=== PATIENT | female | born 1960 | race Two or more races ===

== ENCOUNTER → 2020-09-05 08:20 | Outpatient (BNVA) | payer MEDICAID, SELFPAY | PROVIDERS: Visit Provider Psychiatry & Neurology Neurology | DX: Z13.89 Encounter for screening for other disorder (principal) ==

== ENCOUNTER 2020-11-09 15:02 | Outpatient (REF) | payer MEDICAID, SELFPAY ==
--- NOTE | ~2020-11-09 | CT_ITS ---
EXAMINATION: CT HEAD WITHOUT CONTRAST CLINICAL INFORMATION: Cerebral microvascular disease. COMPARISON: None TECHNIQUE: Contiguous axial imaging was performed from the skull base to vertex without intravenous administration of contrast. This CT examination was performed using dose optimization techniques as appropriate, variously including the following: Automated exposure control. Adjustment of mA and/or kV according to patient size (this includes techniques or standardized protocols for targeted exams where dose is matched to indication/reason for exam; i.e. extremities or head). Use of iterative reconstruction technique. DLP: 687 mGy-cm FINDINGS: There is no evidence of acute intracranial hemorrhage or territorial infarction. No abnormal mass effect or midline shift is seen. Johnson to white matter differentiation is well preserved. No extra-axial fluid collections are identified. The ventricles are normal in size. There is no abnormal attenuation within the brain parenchyma. The osseous structures and soft tissues are normal. The mastoid air cells and visualized portions of the paranasal sinuses are well aerated. CT/CT head/brain wo con IMPRESSION: No acute intracranial process seen.
== END 2020-11-09 15:03 | disposition home or self-care (01) ==
LOC: HO.CT 15:02
PROVIDERS: Visit Provider Psychiatry & Neurology Neurology
DX: G31.84 Mild cognitive impairment of uncertain or unknown etiology (principal); I67.9 Cerebrovascular disease, unspecified
CPT/HCPCS: 70450

== ENCOUNTER 2020-11-11 09:36 | Outpatient (REF) | payer MEDICAID, SELFPAY ==
[2020-11-11 10:46] LABS: Basophils Percent Auto 0.4 % (0-2); Eosinophils Absolute Auto 0.3 X10*3/uL (0.0-0.4); Eosinophils Percent Auto 3.1 % (0-4); MANUAL DIFF FLAG SCAN; Mean Corpuscular Volume 95.1 fL (80-98)
[2020-11-11 10:48] LABS: Hematocrit 44.4 % (37-47); Hemoglobin 13.8 g/dl (12.0-16.0); Imm Gran Abs Auto 0.01 X10*3/uL (0.00-0.03); Imm Gran Pct Auto 0.1 % (0.0-0.4); Lymphocytes Absolute Auto 2.1 X10*3/uL (1.2-4.9); Lymphocytes Percent Auto 24.9 % (20-40); Mean Corpuscular HGB Conc 31.1 g/dl (31.0-35.0); Mean Corpuscular Hemoglobin 29.6 pg (27.0-33.0); Mean Platelet Volume 13.8 fL (9.4-12.3); Monocytes Absolute Auto 0.7 X10*3/uL (0.1-1.2); Neutrophils Absolute Auto 5.4 X10*3/uL (2.0-8.3); Neutrophils Percent Auto 63.5 % (45-73); Platelet Count 136 X10*3/uL (160-400); Red Blood Count 4.67 X10*6/uL (4.20-5.50); Red Cell Distribution Width 13.8 % (11.0-16.0); White Blood Count 8.5 X10*3/uL (4.8-10.8)
[2020-11-11 10:49] LABS: PLT ABN DIST 1
[2020-11-11 10:53] LABS: Glucose Urine UA NEG (NEG); Leukocyte Esterase Urine NEG (NEG); Nitrite Urine NEG (NEG); PH 5.5 (5.0-8.0); Specific Gravity - Urine >= 1.030 (1.005-1.025); Urine Blood NEG (NEG); Urine Ketones NEG (NEG); Urine Protein NEG (NEG-TRACE)
[2020-11-11 10:55] LABS: Appearance Urine CLEAR; Color Urine YELLOW
[2020-11-11 11:10] LABS: Alanine Aminotransferase 23 U/L (0-31); Albumin Level 4.2 g/dL (3.5-5.0); Alkaline Phosphatase 72 U/L (39-117); Anion Gap 11 (12-20); Aspartate Amino Transferase 28 U/L (5-31); Bilirubin Total 0.7 mg/dL (0.0-1.0); Blood Urea Nitrogen 23 mg/dL (9-16); Calcium 9.8 mg/dL (8.4-10.2); Carbon Dioxide 34 mmol/L (22-29); Chloride 100 mmol/L (96-108); Estimated Glomerular Filt Rate > 60; Glucose Random 100 mg/dL (60-115); Potassium 3.8 mmol/L (3.3-5.1); Sodium 141 mmol/L (135-145); Total Protein 7.7 g/dL (6.5-8.0)
[2020-11-11 11:26] LABS: Bacteria Urine TRACE /LPF; Mucus Urine 1+ /LPF; RBC Urine 0-2 /HPF (0); Squamous Epithelial Cell Urine 1+ /LPF; WBC Urine 0-2 /HPF (0-4)
[2020-11-11 11:31] LABS: Thyroid Stimulating Hormone 1.59 uIU/mL (0.32-4.0)
[2020-11-11 12:58] LABS: T4 Thyroxine 6.4 ug/dL (4.5-12.0)
[2020-11-13 08:35] LABS: Folate 10.8 ng/mL (> or = 4.0); Vitamin B12 477 pg/mL (200-900)
== END 2020-11-11 09:37 | disposition home or self-care (01) ==
LOC: HO.LAB 09:36
PROVIDERS: Visit Provider Psychiatry & Neurology Neurology
DX: R42 Dizziness and giddiness (principal); G31.84 Mild cognitive impairment of uncertain or unknown etiology
CPT/HCPCS: 36415; 80053; 81001; 82607; 82746; 84436; 84443; 85025

== ENCOUNTER → 2020-12-12 08:40 | Outpatient (BNVA) | payer MEDICAID, SELFPAY | PROVIDERS: PCP Registered Nurse Community Health; Visit Provider Psychiatry & Neurology Neurology ==

== ENCOUNTER 2021-04-26 09:00 | Outpatient (RCR) | payer MEDICAID, SELFPAY | END 2021-05-11 12:31 | disposition home or self-care (01) | LOC: HO.PT 09:00 | PROVIDERS: PCP Registered Nurse Community Health; Visit Provider Registered Nurse Community Health | DX: M47.816 Spondylosis without myelopathy or radiculopathy, lumbar region (principal) | CPT/HCPCS: 97110; 97112; 97162 ==

== ENCOUNTER 2021-05-22 07:49 | Outpatient (REF) | payer MEDICAID, SELFPAY ==
--- NOTE | ~2021-05-22 | XR_ITS ---
EXAMINATION: XR FOOT, RIGHT CLINICAL INFORMATION: Right foot pain. COMPARISON: None TECHNIQUE: AP, lateral, and oblique views of the right foot. FINDINGS: There is no acute fracture or dislocation. The tarsal bones are normally aligned. Small plantar and retrocalcaneal spurs are seen. The soft tissues are unremarkable. XR/XR foot RT min 3V IMPRESSION: Small degenerative calcaneal spurs. No acute abnormality.
--- NOTE | ~2021-05-22 | MM_ITS ---
EXAMINATION: MM SCREENING DIGITAL BREAST TOMOSYNTHESIS, BILATERAL CLINICAL INFORMATION: Screening. Asymptomatic. The lifetime risk of breast cancer based on the Tyrer-Cuzick Model is 5%. COMPARISON: Mammography: 06/14/2020, 03/01/2019, 02/24/2018 TECHNIQUE: Digital breast tomosynthesis is performed in both the craniocaudal and mediolateral oblique views along with computer-aided detection (CAD). Synthesized 2D images are generated from the tomosynthesis. FINDINGS: There are scattered areas of fibroglandular density (ACR BI-RADS breast composition Category b). There are no significant masses, abnormal calcifications, or other abnormalities. There is a stable nodule mid upper outer left breast again, scattered bilateral ductal secretory and some round calcifications and dermal calcifications are again seen. The axilla are unremarkable. No significant changes. MM/MM tomosynthesis screening BI IMPRESSION: No mammographic evidence of malignancy. ASSESSMENT: BI-RADS 2: Benign RECOMMENDATION: Routine annual mammography screening. This patient's information was entered into a reminder system with a target due date for their next mammogram.
== END 2021-05-22 07:50 | disposition home or self-care (01) ==
LOC: HO.MAMMO 07:49
PROVIDERS: Absent Provider Emergency Medicine; PCP Internal Medicine; Visit Provider Internal Medicine
DX: M77.31 Calcaneal spur, right foot (principal); M79.671 Pain in right foot; Z12.31 Encounter for screening mammogram for malignant neoplasm of breast; I10 Essential (primary) hypertension; G47.33 Obstructive sleep apnea (adult) (pediatric)
CPT/HCPCS: 73630; 77063; 77067; 93005; 99202

== ENCOUNTER → 2021-06-12 10:04 | Outpatient (BNVA) | payer MEDICAID, SELFPAY | PROVIDERS: PCP Registered Nurse Community Health; Visit Provider Psychiatry & Neurology Neurology ==

== ENCOUNTER → 2021-07-30 09:59 | Outpatient (REF) | payer MEDICAID, SELFPAY | LOC: HO.SL 09:59 | PROVIDERS: PCP Registered Nurse Community Health; Visit Provider Internal Medicine | DX: G47.33 Obstructive sleep apnea (adult) (pediatric) (principal) | CPT/HCPCS: 95806 ==

== ENCOUNTER → 2021-11-12 19:58 | Outpatient (REF) | payer MEDICAID, SELFPAY | LOC: HO.SL 19:58 | PROVIDERS: PCP Registered Nurse Community Health; Visit Provider Psychiatry & Neurology Neurology | DX: G47.33 Obstructive sleep apnea (adult) (pediatric) (principal) | CPT/HCPCS: 95810 ==

== ENCOUNTER → 2021-11-27 08:15 | Outpatient (BNVA) | payer MEDICAID, SELFPAY | PROVIDERS: PCP Registered Nurse Community Health; Referring Provider Registered Nurse Community Health; Visit Provider Psychiatry & Neurology Neurology | DX: G47.33 Obstructive sleep apnea (adult) (pediatric) (principal); Z99.89 Dependence on other enabling machines and devices | CPT/HCPCS: 99212 ==

== ENCOUNTER 2021-12-23 04:43 | Emergency (ER) | payer MEDICAID, SELFPAY ==
--- NOTE | ~2021-12-23 | CT_ITS ---
EXAMINATION: CT HEAD W/O IV CONTRAST CT CERVICAL SPINE W/O IV CONTRAST CLINICAL INFORMATION: Head strike, headache, neck pain. COMPARISON: Head CT from 11/09/2020. TECHNIQUE: Head - Contiguous axial imaging of the head was performed from the skull base to the vertex without the administration of intravenous contrast, and axial images are reconstructed at 2 mm and 5 mm slice thickness. Cervical spine - A volumetric, helical CT acquisition of the cervical spine was obtained without contrast; in addition to the standard set of axial images, multiplanar reformatted images were provided in the coronal and sagittal imaging planes. This CT examination was performed using dose optimization techniques as appropriate, variously including the following: *Automated exposure control *Adjustment of mA and/or kV according to patient size (this includes techniques or standardized protocols for targeted exams where dose is matched to indication/reason for exam; i.e. extremities or head) *Use of iterative reconstruction technique DLP: 1184 mGy-cm (total) FINDINGS: HEAD: No evidence of intracranial hemorrhage, major vascular territory infarction, focal mass effect or midline shift. Johnson to white matter differentiation is preserved. The ventricles have normal size and configuration. No extra-axial fluid collections. The calvarium is intact and the visualized paranasal sinuses, mastoid air cells and middle ear cavities are clear. The temporomandibular joints are unremarkable. The visualized orbits and globes are intact. CERVICAL SPINE: No acute abnormalities. The craniocervical junction is normal. The occipital condyles, dens and atlantodental articulation are intact. The vertebral body heights and alignment are maintained. No fractures in the anterior or posterior elements. No prevertebral soft tissue swelling. Mild degenerative disc space narrowing, vertebral osteophyte formation and uncovertebral joint hypertrophy at C4-C5 and C5-C6. No spinal hematoma or focal fluid collection in the visualized neck. The examined lung apices are clear. Thyroid gland is normal. CT/CT cervical spine wo con IMPRESSION: * No intracranial hemorrhage or other acute intracranial pathology. * No fracture or malalignment in the mildly degenerated cervical spine.
--- NOTE | ~2021-12-23 | CT_ITS ---
EXAMINATION: CT ABDOMEN AND PELVIS WITHOUT CONTRAST CLINICAL INFORMATION: Right flank pain. COMPARISON: CT scan of the abdomen and pelvis April 2012. TECHNIQUE: Multidetector volumetric imaging was performed from the superior aspect of the liver through the pubic symphysis. Sagittal and coronal reformatted images were obtained on the technologist's workstation. This CT examination was performed using dose optimization techniques as appropriate, variously including the following: *Automated exposure control *Adjustment of mA and/or kV according to patient size (this includes techniques or standardized protocols for targeted exams where dose is matched to indication/reason for exam; i.e. extremities or head) *Use of iterative reconstruction technique DLP: 643 mGy-cm FINDINGS: LUNG BASES: Minimal posterior dependent atelectasis. LIVER, GALLBLADDER, AND BILIARY TREE: The liver is normal in size, shape, and attenuation. No focal hepatic lesion or biliary ductal dilatation is present. Gallbladder absent. PANCREAS: Unremarkable. SPLEEN: Unremarkable. ADRENAL GLANDS: Unremarkable. KIDNEYS AND URETERS: The kidneys are normal in size, shape, and attenuation. No hydronephrosis, hydroureter, or calculi seen. No perinephric stranding. BLADDER: Normal. GASTROINTESTINAL TRACT: Scattered diverticulosis in the distal colon without diverticulitis. Appendix normal. Small bowel normal. Stomach normal. ABDOMINAL WALL: No significant hernia is appreciated. LYMPH NODES: Normal. VASCULAR: Mild arterial calcification throughout. PELVIC VISCERA: Age-related or surgical change as uterus not visualized. OSSEOUS STRUCTURES: Multilevel spondylosis of the lumbar sacral spine, slightly progressed compared with the [address]/CT abdomen pelvis wo con IMPRESSION: No urinary tract calculus. No identified etiology for patient's reported symptoms. Scattered diverticulosis without diverticulitis. Fleischner guidelines were followed.
--- NOTE | ~2021-12-23 | XR_ITS ---
EXAMINATION: XR CHEST CLINICAL INFORMATION: Fall. Pain. COMPARISON: 10/14/2019 TECHNIQUE: Frontal view of the chest was obtained. FINDINGS: Mild dependent atelectasis at the right lung base. Lungs are otherwise clear. No consolidation, pneumothorax, or pleural effusion. Cardiac and mediastinal contours are normal. Calcific atherosclerosis is present in the thoracic aorta. Calcific tendinitis at the left rotator cuff. Degenerative spondylosis in the thoracic spine. No acute fractures are identified. XR/XR chest 1V IMPRESSION: No acute bony findings. No appreciable rib fractures.
[2021-12-23 04:49] VITALS: BP 101/55; BP 144/86; PULSE 67; PULSE 70; RESP 14; TEMP 37.1; O2SAT 94; O2SAT 98; BMI 41.3
--- NOTE | 2021-12-23 06:21 | ECG_ITS ---
Test Reason : HTN/HEADACHE Blood Pressure : / mmHG Vent. Rate : 070 BPM Atrial Rate : 070 BPM P-R Int : 132 ms QRS Dur : 092 ms QT Int : 376 ms P-R-T Axes : 025 -14 -27 degrees QTc Int : 406 ms Normal sinus rhythm T wave abnormality, consider anterior ischemia Abnormal ECG When compared with ECG of 14-OCT-2019 21:02, Inverted T waves have replaced nonspecific T wave abnormality in Anterior leads Referred By: Generic ED Physician Electronically Signed By:Cole Aguiar
[2021-12-23 06:55] LABS: MANUAL DIFF FLAG NO
--- NOTE | 2021-12-23 06:55 | ED_ITS ---
HPI - Altered Mental Status General Chief Complaint: Altered Mental Status Stated Complaint: fall Time Seen by Provider: 12/23/21 06:32 Source: patient and family Mode of arrival: EMS Limitations: no limitations History of Present Illness MD complaint: weakness and other (had such severe R flank pain (pain x 3 months) that she syncopized and fell in bathroom) Onset (ago): minute(s) (just prior to arrival ) Timing confirmed by: family member (daughter found her on ground BP was 90) Severity: severe Consistency of symptoms: waxing and waning Context: other (has been c/o R flank pain for 3 months just saw PCP this week they put her on macrobid for UTI a couple of days ago flank pain worsened in the night) Associated symptoms: loss of appetite, malaise, nausea/vomiting, syncope (due to severe pain today in R flank knew she was going to pass out) and weakness Related Data Home Medications Medication Instructions Recorded Confirmed chlorthalidone 50 mg tablet 50 mg PO DAILY 05/22/21 05/22/21 cholecalciferol (vitamin D3) 25 25 mcg PO DAILY 05/22/21 05/22/21 mcg (1,000 unit) chewable tablet clonazepam 1 mg tablet 1 mg PO DAILY 05/22/21 05/22/21 conjugated estrogens 0.625 mg 0.625 mg PO DAILY 05/22/21 05/22/21 tablet (Premarin) gabapentin 100 mg capsule 400 mg PO BID cap 05/22/21 05/22/21 metoprolol succinate 25 mg 25 mg PO DAILY 05/22/21 05/22/21 tablet,extended release 24 hr quetiapine 200 mg tablet 200 mg PO DAILY 05/22/21 05/22/21 rosuvastatin 10 mg tablet 10 mg PO DAILY 05/22/21 05/22/21 sertraline 100 mg tablet 100 mg PO DAILY 05/22/21 05/22/21 zolpidem 10 mg tablet 10 mg PO BEDTIME PRN 05/22/21 05/22/21 Previous Rx's Medication Instructions Recorded cyclobenzaprine 10 mg tablet 10 mg PO TID PRN #14 tab 12/23/21 lidocaine 4 % topical patch 1 patch TOPICAL DAILY PRN #10 ea 12/23/21 Allergies Allergy/AdvReac Type Severity Reaction Status Date / Time No Known Allergies Allergy Verified 11/27/21 08:40 Review of Systems Review of Systems: Constitutional : No Weight loss, No Fever, No Chills, pos Fatigue, No Malaise ENT/Mouth : No sore throat, No Rhinorrhea Eyes: No Eye Pain, No Swelling, No Redness Cardiovascular : No Chest Pain, No SOB, No Dyspnea on Exertion, No Orthopnea, No Edema, No Palpitations Respiratory : No Cough, No Sputum, No Wheezing Gastrointestinal : pos Nausea, No Vomiting, No Diarrhea, No Constipation, No abdominal Pain, No Hematochezia, No Melena Genitourinary : No Dysuria, No Urinary Frequency, No Hematuria, Musculoskeletal : No joint pain, No Myalgias, No Joint Swelling, pos R flank pain Skin : No Skin Lesions, No rash Neuro : pos Weakness, No Numbness, No Dizziness, No Headache, pos syncope Psych : No Anxiety/Panic, No Depression Heme/Lymph: No Bruising, No Bleeding,No Lymphadenopathy Endocrine : No Polyuria, No Polydipsia All other systems reviewed and are negative FORMERLY [facility], 1928–1983 Past Medical History Attestation statement: The following information was validated with the patient. Medical History Anxiety Carpal tunnel syndrome Cholecystectomy planned Depression Diabetes Essential hypertension History of mitral valve prolapse Hypertension Mild cognitive disorder PTSD (post-traumatic stress disorder) Sciatica Spondylosis Surgical History H/O: hysterectomy Family History Family History Father Cardiomyopathy Mother Bone cancer Brother Atherosclerotic heart disease Social History Social History (Updated 12/23/21 @ 07:02 by Kadie Allen DO) Patient Tobacco Use Status: Never used Tobacco Advance Directives: No Patient : No Physical Exam ED Vital Signs: Vital Signs - 24 hr 12/23/21 04:49 12/23/21 07:33 Temperature 98.7 F Pulse Rate 67 66 Respiratory Rate 14 15 Blood Pressure 101/55 L 107/67 Pulse Oximetry 94 94 BMI result Body Mass Index 41.3 Appearance: Alert. Oriented X3. No acute distress. Eyes: Pupils equal, round and reactive to light. ENT: Pharynx normal. Neck: Normal inspection. Neck supple. CVS: Normal heart rate and rhythm. Pulses normal. Respiratory: No respiratory distress. Breath sounds normal. Abdomen: Soft and non-tender. Skin: Skin warm and dry. Normal skin color. Normal skin turgor. Extremities: No lower extremity edema. No calf ttp Neuro: Oriented X 3. No motor deficit. No sensory deficit. Course Course Course Narrative: patient stable for DC at this time - negative workup, UA negative can continue macrobid MDM - Altered Mental Status MDM Narrative Medical decision making narrative: 61 yo female with hx of HTN, SILVANO who has been having R flank pain x 3 months just put on macrobid by her PCP a few days ago was on the toilet this AM when the pain became so severe she passed out. She was found by her family and her daugther recorded a BP of 90. At this time no sig trauma noted she is GCS 15. Will obtain labs, (imaging of head/neck ordered prior to my evaluation) she will need EKG and troponin x 2. I do not suspect PE given this pain x 3 months but she should have CT scan of R flank for mass / stone. IVF ordered. Dispo per results and findings. Lab Data Result diagrams: 12/23/21 06:27 12/23/21 06:27 Labs: Lab Results 12/23/21 12/23/21 12/23/21 Range/Units 06:27 06:27 06:27 WBC 8.8 (4.8-10.8) X10*3/uL RBC 4.65 (4.20-5.50) X10*6/uL Hgb 13.9 (12.0-16.0) g/dl Hct 43.1 (37.0-47.0) % MCV 92.7 (80.0-98.0) fL MCH 29.9 (27.0-33.0) pg MCHC 32.3 (31.0-35.0) g/dl RDW 13.8 (11.0-16.0) % Plt Count 163 (160-400) X10*3/uL MPV 12.8 H (9.4-12.3) fL Immature Gran % (Auto) 0.3 (0.0-0.4) % Neut % (Auto) 86.1 H (45-73) % Lymph % (Auto) 6.7 L (20-40) % [place] % (Auto) 6.2 (2-11) % Eos % (Auto) 0.6 (0-4) % Baso % (Auto) 0.1 (0-2) % Lymph # (Auto) 0.6 L (1.2-4.9) X10*3/uL [place] # (Auto) 0.5 (0.1-1.2) X10*3/uL Eos # (Auto) 0.1 (0.0-0.4) X10*3/uL Baso # (Auto) 0.0 (0.0-0.2) X10*3/uL Abs Immat Gran (auto) 0.03 (0.00-0.03) X10*3/uL Absolute Neuts (auto) 7.5 (2.0-8.3) x10*3/uL Absolute Nucleated RBC 0.000 (0.0-0.012) X10*3/uL Nucleated RBC % (auto) 0.0 (0.0-0.2) /100WBC Sodium 138 (135-145) mmol/L Potassium 3.7 (3.3-5.1) mmol/L Chloride 100 (96-108) mmol/L Carbon Dioxide 28 (22-29) mmol/L Anion Gap 14 (12-20) BUN 21 H (9-16) mg/dL Creatinine 0.73 (0.5-1.4) mg/dL Estim Creat Clear Calc 60.8 Estimated GFR > 60 Random Glucose 123 H (60-115) mg/dL Lactic Acid (0.5-2.0) mmol/L Calcium 9.4 (8.4-10.2) mg/dL Total Creatine Kinase 206 H (26-140) U/L Troponin I High Sens < 3.5 (<3.5-17.0) ng/L Urine Color Urine Appearance Urine pH (5.0-8.0) Ur Specific [place] (1.005-1.025) Urine Protein (NEG-TRACE) MG/DL Urine Glucose (UA) (NEG) MG/DL Urine Ketones (NEG) MG/DL Urine Blood (NEG) Urine Nitrite (NEG) Ur Leukocyte Esterase (NEG) 12/23/21 12/23/21 12/23/21 Range/Units 06:43 09:00 09:12 WBC (4.8-10.8) X10*3/uL RBC (4.20-5.50) X10*6/uL Hgb (12.0-16.0) g/dl Hct (37.0-47.0) % MCV (80.0-98.0) fL MCH (27.0-33.0) pg MCHC (31.0-35.0) g/dl RDW (11.0-16.0) % Plt Count (160-400) X10*3/uL MPV (9.4-12.3) fL Immature Gran % (Auto) (0.0-0.4) % Neut % (Auto) (45-73) % Lymph % (Auto) (20-40) % [place] % (Auto) (2-11) % Eos % (Auto) (0-4) % Baso % (Auto) (0-2) % Lymph # (Auto) (1.2-4.9) X10*3/uL [place] # (Auto) (0.1-1.2) X10*3/uL Eos # (Auto) (0.0-0.4) X10*3/uL Baso # (Auto) (0.0-0.2) X10*3/uL Abs Immat Gran (auto) (0.00-0.03) X10*3/uL Absolute Neuts (auto) (2.0-8.3) x10*3/uL Absolute Nucleated RBC (0.0-0.012) X10*3/uL Nucleated RBC % (auto) (0.0-0.2) /100WBC Sodium (135-145) mmol/L Potassium (3.3-5.1) mmol/L Chloride (96-108) mmol/L Carbon Dioxide (22-29) mmol/L Anion Gap (12-20) BUN (9-16) mg/dL Creatinine (0.5-1.4) mg/dL Estim Creat Clear Calc Estimated GFR Random Glucose (60-115) mg/dL Lactic Acid 1.5 (0.5-2.0) mmol/L Calcium (8.4-10.2) mg/dL Total Creatine Kinase (26-140) U/L Troponin I High Sens < 3.5 (<3.5-17.0) ng/L Urine Color YELLOW Urine Appearance CLEAR Urine pH 7.0 (5.0-8.0) Ur Specific [place] 1.010 (1.005-1.025) Urine Protein NEG (NEG-TRACE) MG/DL Urine Glucose (UA) NEG (NEG) MG/DL Urine Ketones NEG (NEG) MG/DL Urine Blood NEG (NEG) Urine Nitrite NEG (NEG) Ur Leukocyte Esterase NEG (NEG) ECG Data ECG #1: Attestation: I personally reviewed and interpreted this ECG as follows: ECG interpretation date: 12/23/21 ECG interpretation time: 06:56 Interpretation: Rate: 70 Rhythm: NSR [place]: birnak Normal P waves. Normal FLAVIA. Normal QRS complex. ST T wave : inverted V3-V6 qTC: normal prior studies: no acute ischemia from prior hx of inversions in past The study has been interpreted contemporaneously by me. Discharge Plan Discharge Clinical Impression: Vasovagal syncope, Acute flank pain Patient Disposition: Home, Self-Care Instructions: Syncope (ED), Flank Pain (ED) Additional Instructions: return to ED for any worsening symptoms or concerns CT scan negative of R flank CT/CT abdomen pelvis wo con IMPRESSION: No urinary tract calculus. ? No identified etiology for patient's reported symptoms. ? Scattered diverticulosis without diverticulitis.? ? Fleischner guidelines were followed. CONTINUE ANTIBIOTICS Prescriptions: New cyclobenzaprine 10 mg tablet 10 mg PO TID PRN (Reason: muscle spasm) Qty: 14 0RF lidocaine 4 % adhesive patch,medicated 1 patch topical DAILY PRN (Reason: pain) Qty: 10 0RF Rx Instructions: may leave on for up to 12 hrs No Action zolpidem 10 mg tablet 10 mg PO BEDTIME PRN0RF chlorthalidone 50 mg tablet 50 mg PO DAILY 0RF quetiapine 200 mg tablet 200 mg PO DAILY 0RF gabapentin 100 mg capsule 400 mg PO BID 0RF cholecalciferol (vitamin D3) 25 mcg (1,000 unit) tablet,chewable 25 mcg PO DAILY 0RF clonazepam 1 mg tablet 1 mg PO DAILY 0RF rosuvastatin 10 mg tablet 10 mg PO DAILY 0RF sertraline 100 mg tablet 100 mg PO DAILY 0RF metoprolol succinate 25 mg tablet extended release 24 hr 25 mg PO DAILY 0RF Premarin 0.625 mg tablet 0.625 mg PO DAILY 0RF Rx Instructions: cyclically Referrals: [place],[facility] [Primary Care Provider] - 2 days (if not better)
[2021-12-23 07:13] LABS: Basophils Percent Auto 0.1 % (0-2); Eosinophils Absolute Auto 0.1 X10*3/uL (0.0-0.4); Eosinophils Percent Auto 0.6 % (0-4); Hematocrit 43.1 % (37.0-47.0); Hemoglobin 13.9 g/dl (12.0-16.0); Imm Gran Abs Auto 0.03 X10*3/uL (0.00-0.03); Imm Gran Pct Auto 0.3 % (0.0-0.4); Lymphocytes Absolute Auto 0.6 X10*3/uL (1.2-4.9); Lymphocytes Percent Auto 6.7 % (20-40); Mean Corpuscular HGB Conc 32.3 g/dl (31.0-35.0); Mean Corpuscular Hemoglobin 29.9 pg (27.0-33.0); Mean Corpuscular Volume 92.7 fL (80.0-98.0); Mean Platelet Volume 12.8 fL (9.4-12.3); Monocytes Absolute Auto 0.5 X10*3/uL (0.1-1.2); Monocytes Percent Auto 6.2 % (2-11); Neutrophils Absolute Auto 7.5 x10*3/uL (2.0-8.3); Neutrophils Percent Auto 86.1 % (45-73); Platelet Count 163 X10*3/uL (160-400); Red Blood Count 4.65 X10*6/uL (4.20-5.50); Red Cell Distribution Width 13.8 % (11.0-16.0); White Blood Count 8.8 X10*3/uL (4.8-10.8)
[2021-12-23 07:17] LABS: Lactic Acid 1.5 mmol/L (0.5-2.0)
[2021-12-23 07:23] LABS: Anion Gap 14 (12-20); Blood Urea Nitrogen 21 mg/dL (9-16); Calcium 9.4 mg/dL (8.4-10.2); Carbon Dioxide 28 mmol/L (22-29); Chloride 100 mmol/L (96-108); Creatinine Clr Calc Pharmacy 60.8; Estimated Glomerular Filt Rate > 60; Glucose Random 123 mg/dL (60-115); Potassium 3.7 mmol/L (3.3-5.1); Sodium 138 mmol/L (135-145)
[2021-12-23 07:25] LABS: Troponin-I High Sensitivity < 3.5 ng/L (<3.5-17.0)
[2021-12-23] MEDS: 0.9 % Sodium Chloride 1,000 ML 999 ML IV (07:32)
[2021-12-23 07:33] VITALS: BP 107/67; PULSE 66; RESP 15; O2SAT 94
--- NOTE | 2021-12-23 08:37 | PC.NURSE ---
Pt sleeping at this time, responds to name. daughter at bedside, medicated as per [facility] orders. Will continue to monito.
[2021-12-23 09:06] LABS: Appearance Urine CLEAR; Color Urine YELLOW; Glucose Urine UA NEG (NEG); Leukocyte Esterase Urine NEG (NEG); Nitrite Urine NEG (NEG); Urine Blood NEG (NEG); Urine Ketones NEG (NEG); Urine Protein NEG (NEG-TRACE)
[2021-12-23 09:39] LABS: Troponin-I High Sensitivity < 3.5 ng/L (<3.5-17.0)
[2021-12-23] MEDS: fentaNYL citrate/PF 100 MCG/2 ML VIAL 25 MCG IVPUSH (09:43)
[2021-12-23] MEDS: ondansetron HCL 4 MG/2 ML VIAL IVPUSH (09:43)
[2021-12-23 11:41] VITALS: BP 112/69; PULSE 64; RESP 16; O2SAT 99
== END 2021-12-23 11:42 | disposition home or self-care (01) ==
PROVIDERS: Emergency Provider Emergency Medicine
DX: R55 Syncope and collapse (principal); G44.309 Post-traumatic headache, unspecified, not intractable; R41.82 Altered mental status, unspecified; R10.9 Unspecified abdominal pain; Z79.899 Other long term (current) drug therapy
CPT/HCPCS: 36415; 70450; 71045; 72125; 74176; 80048; 81003; 82550; 83605; 84484; 85025; 87040; 93005; 96360; 96361; 99284; J2405; J3010

== ENCOUNTER 2021-12-26 12:52 | Outpatient (REF) | payer MEDICAID, SELFPAY ==
--- NOTE | ~2021-12-26 | XR_ITS ---
EXAMINATION: XR SCOLIOSIS CLINICAL INFORMATION: Screening COMPARISON: Radiographs of the lumbar spine 10/30/2015 TECHNIQUE: A single view of the thoracolumbar spine is obtained. FINDINGS: There are no intrinsic vertebral anomalies. There is a left convex curvature of the lower thoracic spine, apex at T9, measuring 15 degrees. There is a right convex curvature of the thoracolumbar spine, apex at L3, measuring 15 degrees. There is no significant pelvic tilt. Risser 5. XR/XR scoliosis survey IMPRESSION: Mild scoliosis as above described.
== END 2021-12-26 12:53 | disposition home or self-care (01) ==
LOC: HO.XRAY 12:52
PROVIDERS: PCP Registered Nurse Community Health; Visit Provider Registered Nurse
DX: Z13.828 Encounter for screening for other musculoskeletal disorder (principal)
CPT/HCPCS: 72082

== ENCOUNTER → 2022-01-02 08:44 | Outpatient (BNVA) | payer MEDICAID, SELFPAY | PROVIDERS: PCP Registered Nurse Community Health; Referring Provider Registered Nurse Community Health; Visit Provider Internal Medicine | DX: I95.9 Hypotension, unspecified (principal); I10 Essential (primary) hypertension; R55 Syncope and collapse; G47.33 Obstructive sleep apnea (adult) (pediatric) | CPT/HCPCS: 99212 ==

== ENCOUNTER 2022-01-03 05:37 | Emergency (ER) | payer MEDICAID, SELFPAY ==
--- NOTE | ~2022-01-03 | XR_ITS ---
EXAMINATION: XR CHEST CLINICAL INFORMATION: Chest pain COMPARISON: 12/23/2021 TECHNIQUE: Frontal view of the chest was obtained. FINDINGS: The lungs are mildly hypoinflated and appear clear without focal consolidation. No evidence of pneumothorax, pleural effusion, or pulmonary edema. Cardiac size is within normal limits. Calcification is present at the aortic arch. No acute osseous findings are seen. XR/XR chest 1V IMPRESSION: No acute cardiopulmonary findings.
[2022-01-03 05:43] VITALS: BP 127/70; BP 139/82; PULSE 54; RESP 20; TEMP 36.6; O2SAT 98; BMI 33.6
--- NOTE | 2022-01-03 05:51 | ED.CHESTPAIN ---
HPI - Chest Pain General Chief Complaint: Chest Pain Stated Complaint: CHEST PRESSURE Time Seen by Provider: 01/03/22 05:41 Source: patient and old records reviewed Mode of arrival: EMS Limitations: no limitations History of Present Illness MD complaint: chest pain Pertinent past history: other (HTN off medications since end november, MV prolapse) Onset (ago): hour(s) (4 am today) Timing of current episode: constant Prior episodes: Yes Onset: during rest Pain location: substernal Pain radiation: left arm (feels tingly) Severity: moderate Quality: other (pressure) Relieving factors: nothing Exacerbating factors: nothing Context: other (recently take off of her BP medications due to syncope - although when this episode happened she became nervous and took a HCTZ as her home BP was 160/100) Associated symptoms: nausea Treatment prior to arrival: aspirin (324) and other (HCTZ at home) Related Data Home Medications Medication Instructions Recorded Confirmed cholecalciferol (vitamin D3) 25 25 mcg PO DAILY 05/22/21 01/02/22 mcg (1,000 unit) chewable tablet clonazepam 1 mg tablet 1 mg PO DAILY 05/22/21 01/02/22 conjugated estrogens 0.625 mg 0.625 mg PO DAILY 05/22/21 01/02/22 tablet (Premarin) gabapentin 100 mg capsule 400 mg PO BID cap 05/22/21 01/02/22 quetiapine 200 mg tablet 200 mg PO DAILY 05/22/21 01/02/22 rosuvastatin 10 mg tablet 10 mg PO DAILY 05/22/21 01/02/22 sertraline 100 mg tablet 100 mg PO DAILY 05/22/21 01/02/22 zolpidem 10 mg tablet 10 mg PO BEDTIME PRN 05/22/21 01/02/22 Previous Rx's Medication Instructions Recorded cyclobenzaprine 10 mg tablet 10 mg PO TID PRN #14 tab 12/23/21 lidocaine 4 % topical patch 1 patch TOPICAL DAILY PRN #10 ea 12/23/21 Allergies Allergy/AdvReac Type Severity Reaction Status Date / Time No Known Allergies Allergy Verified 01/03/22 06:06 Review of Systems Review of Systems: Constitutional : No Weight loss, No Fever, No Chills ENT/Mouth : No sore throat, No Rhinorrhea Eyes: No Eye Pain, No Swelling Cardiovascular : pos Chest Pain, no SOB, no Dyspnea on Exertion, No Orthopnea, No Edema, No Palpitations Respiratory : No Cough, No Sputum Gastrointestinal : pos Nausea, No Vomiting, No Diarrhea, No abdominal Pain, No Hematochezia, No Melena Genitourinary : No Dysuria, No Urinary Frequency Musculoskeletal : No joint pain, No Myalgias, No Joint Swelling Skin : No Skin Lesions, No rash Neuro : No Weakness, No Numbness, No Dizziness, No Headache Psych : No Anxiety/Panic, No Depression Heme/Lymph: No Bruising, No Lymphadenopathy Endocrine : No Polyuria, No Polydipsia All other systems reviewed and are negative [facility] Past Medical History Attestation statement: The following information was validated with the patient. Medical History Anxiety Carpal tunnel syndrome Cholecystectomy planned Depression Diabetes Essential hypertension History of mitral valve prolapse Hypertension Mild cognitive disorder PTSD (post-traumatic stress disorder) Sciatica Spondylosis Surgical History H/O: hysterectomy Family History Family History Father Cardiomyopathy Mother Bone cancer Brother Atherosclerotic heart disease Social History Social History Patient Tobacco Use Status: Never used Tobacco Advance Directives: No Advance Directives Information Provided: No Patient : No Physical Exam Vital Signs: Vital Signs: Last Vital Signs Temp 97.9 F 01/03/22 05:43 Pulse 54 01/03/22 06:24 Resp 13 01/03/22 06:24 BP 127/71 01/03/22 06:24 Pulse Ox 98 01/03/22 06:24 BMI result Body Mass Index 33.6 Appearance: Alert. Oriented X3. No acute distress. Eyes: Pupils equal, round and reactive to light. ENT: Pharynx normal. Neck: Normal inspection. Neck supple. CVS: Normal heart rate and rhythm. Pulses normal. Respiratory: No respiratory distress. Breath sounds normal. Abdomen: Soft and non-tender. Skin: Skin warm and dry. Normal skin color. Normal skin turgor. Extremities: No lower extremity edema. No calf ttp Neuro: Oriented X 3. No motor deficit. No sensory deficit. MDM - Chest Pain MDM Narrative Medical decision making narrative: 61 yo female with hx of SILVANO< HTN but recent syncope taken off of her medications, MV prolapse, DM, depression comes in after waking up today at 4am and noting chest pressure with nausea and feeling the pain go into her L arm with tingling. She will need EKG, CXR, IV morphine for pain, ddimer, troponin x 2. She is due for ECHO - given she has persistent symptoms may want to get ECHO today during visit if possible - sees Mateus. Will sign out to Dr. Escamilla pending further workup. Dispo per results and findings. Lab Data Result diagrams: 01/03/22 06:03 01/03/22 06:03 Labs: Lab Results 01/03/22 01/03/22 Range/Units 06:03 06:03 WBC 6.2 (4.8-10.8) X10*3/uL RBC 4.67 (4.20-5.50) X10*6/uL Hgb 13.8 (12.0-16.0) g/dl Hct 43.9 (37.0-47.0) % MCV 94.0 (80.0-98.0) fL MCH 29.6 (27.0-33.0) pg MCHC 31.4 (31.0-35.0) g/dl RDW 14.1 (11.0-16.0) % Plt Count 172 (160-400) X10*3/uL MPV 12.4 H (9.4-12.3) fL Immature Gran % (Auto) 0.2 (0.0-0.4) % Neut % (Auto) 56.0 (45-73) % Lymph % (Auto) 32.9 (20-40) % [place] % (Auto) 7.7 (2-11) % Eos % (Auto) 2.7 (0-4) % Baso % (Auto) 0.5 (0-2) % Lymph # (Auto) 2.0 (1.2-4.9) X10*3/uL [place] # (Auto) 0.5 (0.1-1.2) X10*3/uL Eos # (Auto) 0.2 (0.0-0.4) X10*3/uL Baso # (Auto) 0.0 (0.0-0.2) X10*3/uL Abs Immat Gran (auto) 0.01 (0.00-0.03) X10*3/uL Absolute Neuts (auto) 3.5 (2.0-8.3) x10*3/uL Absolute Nucleated RBC 0.000 (0.0-0.012) X10*3/uL Nucleated RBC % (auto) 0.0 (0.0-0.2) /100WBC PT 11.3 (9.9-13.0) SEC INR 1.0 (0.9-1.1) D-Dimer High Sensitivty 212 NG/ML ECG Data ECG #1: Attestation: I personally reviewed and interpreted this ECG as follows: ECG interpretation date: 01/03/22 ECG interpretation time: 05:52 Interpretation: Rate: 56 Rhythm: sinus bradycardia [place]: normal Normal P waves. Normal FLAVIA. Normal QRS complex. ST T wave : inverted t waves III, aVF V1-V6 no JEAN qTC: normal prior studies: no change from priors The study has been interpreted contemporaneously by me. Discharge Plan Discharge Clinical Impression: Chest pain Patient Disposition: Still a Patient Prescriptions: No Action cyclobenzaprine 10 mg tablet 10 mg PO TID PRN (Reason: muscle spasm) Qty: 14 0RF lidocaine 4 % adhesive patch,medicated 1 patch topical DAILY PRN (Reason: pain) Qty: 10 0RF Rx Instructions: may leave on for up to 12 hrs zolpidem 10 mg tablet 10 mg PO BEDTIME PRN0RF quetiapine 200 mg tablet 200 mg PO DAILY 0RF gabapentin 100 mg capsule 400 mg PO BID 0RF cholecalciferol (vitamin D3) 25 mcg (1,000 unit) tablet,chewable 25 mcg PO DAILY 0RF clonazepam 1 mg tablet 1 mg PO DAILY 0RF rosuvastatin 10 mg tablet 10 mg PO DAILY 0RF sertraline 100 mg tablet 100 mg PO DAILY 0RF Premarin 0.625 mg tablet 0.625 mg PO DAILY 0RF Rx Instructions: cyclically
[2022-01-03 06:09] LABS: Basophils Percent Auto 0.5 % (0-2); Eosinophils Absolute Auto 0.2 X10*3/uL (0.0-0.4); Eosinophils Percent Auto 2.7 % (0-4); Hematocrit 43.9 % (37.0-47.0); Hemoglobin 13.8 g/dl (12.0-16.0); Imm Gran Abs Auto 0.01 X10*3/uL (0.00-0.03); Imm Gran Pct Auto 0.2 % (0.0-0.4); Lymphocytes Percent Auto 32.9 % (20-40); MANUAL DIFF FLAG NO; Mean Corpuscular HGB Conc 31.4 g/dl (31.0-35.0); Mean Corpuscular Hemoglobin 29.6 pg (27.0-33.0); Mean Platelet Volume 12.4 fL (9.4-12.3); Monocytes Absolute Auto 0.5 X10*3/uL (0.1-1.2); Monocytes Percent Auto 7.7 % (2-11); Neutrophils Absolute Auto 3.5 x10*3/uL (2.0-8.3); Platelet Count 172 X10*3/uL (160-400); Red Blood Count 4.67 X10*6/uL (4.20-5.50); Red Cell Distribution Width 14.1 % (11.0-16.0); White Blood Count 6.2 X10*3/uL (4.8-10.8)
[2022-01-03 06:12] VITALS: RESP 12
[2022-01-03] MEDS: Morphine Sulfate 4 MG/ML CARTRIDGE IVPUSH (06:12)
[2022-01-03] MEDS: ondansetron HCL 4 MG/2 ML VIAL IVPUSH (06:12)
[2022-01-03 06:16] LABS: D Dimer High Sensitivity 212 NG/ML
[2022-01-03 06:17] LABS: Prothrombin Time 11.3 SEC (9.9-13.0)
[2022-01-03 06:24] VITALS: BP 127/71; PULSE 54; RESP 13; O2SAT 98
[2022-01-03 06:26] LABS: COVID-19 Test Negative (Negative)
[2022-01-03 06:27] LABS: Alanine Aminotransferase 42 U/L (0-31); Albumin Level 3.9 g/dL (3.5-5.0); Alkaline Phosphatase 64 U/L (39-117); Anion Gap 11 (12-20); Aspartate Amino Transferase 30 U/L (5-31); Bilirubin Direct 0.2 mg/dL (0.0-0.5); Bilirubin Total 0.6 mg/dL (0.0-1.0); Blood Urea Nitrogen 12 mg/dL (9-16); Calcium 9.5 mg/dL (8.4-10.2); Carbon Dioxide 29 mmol/L (22-29); Chloride 106 mmol/L (96-108); Creatinine Clr Calc Pharmacy 72.8; Estimated Glomerular Filt Rate > 60; Glucose Random 86 mg/dL (60-115); Lipase 24 U/L (8-78); Magnesium 2.4 mg/dL (1.6-2.6); Sodium 142 mmol/L (135-145); Total Protein 7.3 g/dL (6.5-8.0)
[2022-01-03 06:31] LABS: Troponin-I High Sensitivity < 3.5 ng/L (<3.5-17.0)
[2022-01-03 07:12] VITALS: BP 134/74; PULSE 54; RESP 13; TEMP 36.5; O2SAT 97
--- NOTE | 2022-01-03 07:28 | ECG_ITS ---
Test Reason : CHEST PRESSURE Blood Pressure : / mmHG Vent. Rate : 056 BPM Atrial Rate : 056 BPM P-R Int : 134 ms QRS Dur : 090 ms QT Int : 404 ms P-R-T Axes : 050 -12 -23 degrees QTc Int : 389 ms Sinus bradycardia Nonspecific ST and T wave abnormality Abnormal ECG When compared with ECG of 23-DEC-2021 06:47, Nonspecific T wave abnormality, improved in Lateral leads Referred By: Kadie Allen Electronically Signed By:ANA CORADO MD
--- NOTE | 2022-01-03 07:33 | PC.NURSE ---
c/o epigastric pain since morphine administration. no other complaints. nsr on monitor. skin pwd. ambulatory to BR w/o diff.
[2022-01-03 08:53] VITALS: BP 118/64; PULSE 51; RESP 12; O2SAT 95
[2022-01-03 09:31] LABS: Troponin-I High Sensitivity < 3.5 ng/L (<3.5-17.0)
[2022-01-03 10:40] VITALS: BP 109/57; PULSE 55; RESP 13; TEMP 36.5; O2SAT 98
== END 2022-01-03 11:14 | disposition home or self-care (01) ==
PROVIDERS: Emergency Medicine; Emergency Provider Emergency Medicine Emergency Medical Services; PCP Registered Nurse Community Health
DX: R07.9 Chest pain, unspecified (principal); Z20.822 Contact with and (suspected) exposure to COVID-19; R42 Dizziness and giddiness; I10 Essential (primary) hypertension; E11.9 Type 2 diabetes mellitus without complications; F41.9 Anxiety disorder, unspecified; Z79.02 Long term (current) use of antithrombotics/antiplatelets; Z79.899 Other long term (current) drug therapy
CPT/HCPCS: 36415; 71045; 80048; 80076; 83690; 83735; 84484; 85025; 85379; 85610; 87635; 93005; 96374; 96375; 99284; J2270; J2405

== ENCOUNTER → 2022-01-28 12:49 | Outpatient (BNVA) | payer MEDICAID, SELFPAY | PROVIDERS: PCP Registered Nurse Community Health; Referring Provider Registered Nurse Community Health; Visit Provider Physician Assistant | DX: Z01.818 Encounter for other preprocedural examination (principal); G47.33 Obstructive sleep apnea (adult) (pediatric) | CPT/HCPCS: 99202 ==

== ENCOUNTER → 2022-02-20 12:38 | Outpatient (REF) | payer MEDICAID, SELFPAY ==
--- NOTE | 2022-02-20 12:43 | CA_ITS ---
Transthoracic Echocardiogram Patient (Last, First, Middle): Hilaria Michael, Gender: Female Date of : 1960 Age: 61 Procedure Date: 02/20/2022 Procedure Type: Transthoracic Echocardiogram Location: OP Height: 152.4 cm Weight: 77.57 kg BSA: 1.75 m2 Heart Rate: bpm BP: 138 / 78 mmHg Industrial Organization Manager: HALEY Referring MD: Kalyan Ignacio MD Resume Specialist: Ricki Solis MD Symptoms: I10 - Essential (primary) hypertension Study Quality: Adequate ECG Rhythm: Sinus Conclusions: - 1. Normal LV systolic function with impaired relaxation filling pattern with elevated filling pressures 2. Normal cardiac valvular Doppler 3. Normal RV systolic pressure 4. No gross pericardial effusion Findings PealLeft Ventricle Normal left ventricular size, thickness, and systolic function. The visually estimated ejection fraction is between 55-60%. Spectral Doppler is indicative of an impaired relaxation filling pattern. Elevated filling pressures. E/E prime ratio is >15, consistent with elevated filling pressures.Peak GLS is - 16.2% which is mildly reduced. Right Ventricle Normal right ventricular cavity size and systolic function. Atria The left atrium is normal in size. Interatrial shunt cannot be excluded. The right atrium is normal in size. Aortic Valve The aortic valve structure and function is likely normal. There is no aortic valve stenosis. There is no aortic valve regurgitation. Mitral Valve There is mild anterior and posterior mitral leaflet thickening. There is trace mitral valve regurgitation. There is no mitral valve stenosis. Pulmonic Valve The pulmonic valve was not well visualized. Tricuspid Valve Likely normal tricuspid valve structure and function. There is trace tricuspid valve regurgitation. The right ventricular systolic pressure is 22 mmHg. Normal right atrial pressure. There is no evidence of pulmonary hypertension. Great Vessels All visible segments of the aorta are normal in size. The pulmonary artery was not well visualized. Venous The inferior vena cava is normal in size and collapses greater than 50% with inspiration. Pericardium/Pleural There is no evidence of pericardial effusion. Prior Study Comparison no previous study in the last 5 years for comparison Measurements 2D Linear Measurements IVSd: 0.98 0.6-0.9/0.6-1.0 cm LVIDd: 5.05 3.9-5.3/4.2-5.9 cm LVIDd Index: 2.89 2.4-3.2/2.2-3.1 cm/m2 LVIDs: 2.95 2.0-3.6 cm LVPWd: 0.74 0.7-1.1 cm LA Diam: 3.30 2.7-3.8/3.0-4.0 cm LAIDs Index: 1.89 1.5-2.3 cm/m2 LV Mass: 188.90 67-162/88-224 g LV Mass Index: 107.95 43-95/49-115 g/m2 LVOT Diam: 2.10 3.0+(-)1.3 cm 2D Systolic Function EF 4C: 56.60 >55% EF 2C: 65.50 >55% EF BiP: 59.90 >55% Mitral Valve MV Pk E: 0.96 MV PK A: 0.95 MV Decel Time: 219.00 E/A: 1.00 E'Lateral: 5.27 E'Medial: 4.80 E/E' Med: 20.00 E/E' Lat: 18.20 PHT: 64.00 MVA PHT: 3.44 Decel Green: 4.38 Aortic Valve AoV Pk Vincent: 1.25 AoV Mn Vincent: 0.93 AoV VTI: 0.30 AoV Pk Grad: 6.00 Aov Mn Grad: 4.00 DAVID Cont.VTI: 2.26 LVOT LVOT Pk Vincent: 0.93 LVOT Mn Vincent: 0.58 LVOT VTI: 0.20 LVOT Pk Grad: 3.00 LVOT Mn Grad: 2.00 LVOT Diam: 2.10 LVOT Area: 3.46 Diastolic Function MV Pk E: 0.96 MV Pk A: 0.95 E/A: 1.00 E'Medial: 4.80 E/E' Med: 20.00 E' Laterial: 5.27 E/E' Lat: 18.20 Right Ventricle TAPSE (mm): 19.10 TVS' Vincent: 13.80 Tricuspid Valve TR Pk Vincent: 2.20 TR Pk Grad: 19.00 RA Press: 3.00 RVSP: 22.00 Great Vessels Aorta Sinus of Valsalva: 3.25 2.0-3.[address] Ridge: 3.06 1.7-3.4 cm Ao Asc: 3.40 2.1-3.4 cm Pulmonary Veins Pulm Vein S/D 1.80 Pulmonary Valve PV Pk Vincent: 0.63 Peak PV Grad: 2.00 Updated in Other Vendor System with Status of Final Ricki Solis MD electronically signed on 02/20/2022 4:51:46 PM with status of Final
== END ==
LOC: HO.CARD 12:38
PROVIDERS: PCP Registered Nurse Community Health; Visit Provider Internal Medicine
DX: I10 Essential (primary) hypertension (principal)
CPT/HCPCS: 93306

== ENCOUNTER 2022-02-28 11:00 | Outpatient (RCR) | payer MEDICAID, SELFPAY ==
[2022-01-29 13:00] VITALS: BP 132/77; PULSE 66; O2SAT 97
== END 2022-02-28 12:13 | disposition home or self-care (01) ==
LOC: HO.PT 11:00
PROVIDERS: PCP Registered Nurse Community Health; Visit Provider Registered Nurse
DX: M54.50 Low back pain, unspecified (principal)
CPT/HCPCS: 97110; 97162

== ENCOUNTER → 2022-07-03 12:40 | Outpatient (BNVA) | payer MEDICAID, SELFPAY | PROVIDERS: PCP Registered Nurse Community Health; Referring Provider Registered Nurse Community Health; Visit Provider Internal Medicine | DX: I10 Essential (primary) hypertension (principal); I95.9 Hypotension, unspecified; Z79.899 Other long term (current) drug therapy | CPT/HCPCS: 99212 ==

== ENCOUNTER 2022-07-08 12:42 | Outpatient (REF) | payer MEDICAID, SELFPAY ==
--- NOTE | ~2022-07-08 | MM_ITS ---
EXAMINATION: MM SCREENING DIGITAL BREAST TOMOSYNTHESIS, BILATERAL CLINICAL INFORMATION: Screening. Asymptomatic. The lifetime risk of breast cancer based on the Tyrer-Cuzick Model is 4%. COMPARISON: Mammography: 05/22/2021, 06/14/2020, 03/01/2019 TECHNIQUE: Digital breast tomosynthesis is performed in both the craniocaudal and mediolateral oblique views along with computer-aided detection (CAD). Synthesized 2D images are generated from the tomosynthesis. Additional right CC and bilateral MLO views are provided. FINDINGS: There are scattered areas of fibroglandular density (ACR BI-RADS breast composition Category b). Parenchymal pattern is similar to prior studies. There is no interval mass or architectural abnormality or developing density. Small smooth nodule mid upper outer left breast is stable. Again, there are scattered benign round and some ductal secretory and benign coarse and dermal calcifications. The axilla and skin contours are unremarkable. No significant changes. MM/MM tomosynthesis screening BI IMPRESSION: No mammographic evidence of malignancy. ASSESSMENT: BI-RADS 2: Benign RECOMMENDATION: Routine annual mammography screening. This patient's information was entered into a reminder system with a target due date for their next mammogram.
== END 2022-07-08 12:43 | disposition home or self-care (01) ==
LOC: HO.MAMMO 12:42
PROVIDERS: PCP Registered Nurse Community Health; Visit Provider Internal Medicine
DX: Z12.31 Encounter for screening mammogram for malignant neoplasm of breast (principal)
CPT/HCPCS: 77063; 77067

== ENCOUNTER 2022-07-18 15:28 | Outpatient (REF) | payer MEDICAID, SELFPAY ==
[2022-07-19 14:18] LABS: H Pylori Breath Test Negative (Negative)
== END 2022-07-18 15:29 | disposition home or self-care (01) ==
LOC: HO.LNP 15:28
PROVIDERS: Visit Provider Physician Assistant
DX: A04.8 Other specified bacterial intestinal infections (principal); K21.9 Gastro-esophageal reflux disease without esophagitis; R10.9 Unspecified abdominal pain
CPT/HCPCS: 83013; 99212

== ENCOUNTER 2022-08-12 14:26 | Outpatient (REF) | payer MEDICAID, SELFPAY ==
--- NOTE | ~2022-08-12 | XR_ITS ---
EXAMINATION: XR HIP, RIGHT XR KNEE, RIGHT XR FOOT, RIGHT CLINICAL INFORMATION: Right lower extremity pain. COMPARISON: Right foot 05/22/2021. TECHNIQUE: 2 views right hip, 4 views right knee, 3 views right foot. FINDINGS: HIP: Some minimal degenerative changes present with some mild sclerosis and lateral marginal osteophytes seen on the lateral aspect of the acetabulum. Some minimal sclerosis present over the greater tuberosity which can be seen with bursitis. KNEE: Some mild osteophytes are present arising from the medial femoral condyle and medial tibial plateau indicative of some very minor degenerative changes. Some posterior patellar osteophytes are present as well. No joint effusions are seen. No chondrocalcinosis. No fractures. FOOT: Some minimal degenerative changes are seen at the interphalangeal joints distally. Mild osteophytes are seen on the dorsum of the navicular. A large plantar calcaneal spur is present. Spurring is seen at the insertion site of the Achilles tendon. No fractures. XR/XR hip RT min 2V IMPRESSION: 1. Minimal degenerative changes in the hip and knee as described above. 2. Minimal degenerative changes in the foot with a large plantar calcaneal spur.
--- NOTE | ~2022-08-12 | XR_ITS ---
EXAMINATION: XR HIP, RIGHT XR KNEE, RIGHT XR FOOT, RIGHT CLINICAL INFORMATION: Right lower extremity pain. COMPARISON: Right foot 05/22/2021. TECHNIQUE: 2 views right hip, 4 views right knee, 3 views right foot. FINDINGS: HIP: Some minimal degenerative changes present with some mild sclerosis and lateral marginal osteophytes seen on the lateral aspect of the acetabulum. Some minimal sclerosis present over the greater tuberosity which can be seen with bursitis. KNEE: Some mild osteophytes are present arising from the medial femoral condyle and medial tibial plateau indicative of some very minor degenerative changes. Some posterior patellar osteophytes are present as well. No joint effusions are seen. No chondrocalcinosis. No fractures. FOOT: Some minimal degenerative changes are seen at the interphalangeal joints distally. Mild osteophytes are seen on the dorsum of the navicular. A large plantar calcaneal spur is present. Spurring is seen at the insertion site of the Achilles tendon. No fractures. XR/XR knee RT 4V IMPRESSION: 1. Minimal degenerative changes in the hip and knee as described above. 2. Minimal degenerative changes in the foot with a large plantar calcaneal spur.
--- NOTE | ~2022-08-12 | XR_ITS ---
EXAMINATION: XR HIP, RIGHT XR KNEE, RIGHT XR FOOT, RIGHT CLINICAL INFORMATION: Right lower extremity pain. COMPARISON: Right foot 05/22/2021. TECHNIQUE: 2 views right hip, 4 views right knee, 3 views right foot. FINDINGS: HIP: Some minimal degenerative changes present with some mild sclerosis and lateral marginal osteophytes seen on the lateral aspect of the acetabulum. Some minimal sclerosis present over the greater tuberosity which can be seen with bursitis. KNEE: Some mild osteophytes are present arising from the medial femoral condyle and medial tibial plateau indicative of some very minor degenerative changes. Some posterior patellar osteophytes are present as well. No joint effusions are seen. No chondrocalcinosis. No fractures. FOOT: Some minimal degenerative changes are seen at the interphalangeal joints distally. Mild osteophytes are seen on the dorsum of the navicular. A large plantar calcaneal spur is present. Spurring is seen at the insertion site of the Achilles tendon. No fractures. XR/XR foot RT min 3V IMPRESSION: 1. Minimal degenerative changes in the hip and knee as described above. 2. Minimal degenerative changes in the foot with a large plantar calcaneal spur.
== END 2022-08-12 14:27 | disposition home or self-care (01) ==
LOC: HO.XRAY 14:26
PROVIDERS: PCP Registered Nurse; Visit Provider Registered Nurse
DX: M79.604 Pain in right leg (principal); M79.671 Pain in right foot
CPT/HCPCS: 73502; 73564; 73630

== ENCOUNTER → 2022-09-11 13:19 | Outpatient (BNVA) | payer MEDICAID, SELFPAY | PROVIDERS: PCP Registered Nurse; Visit Provider Physician Assistant | DX: M72.2 Plantar fascial fibromatosis (principal) | CPT/HCPCS: 99202 ==

== ENCOUNTER 2023-01-09 07:13 | Emergency (ER) | payer MEDICAID, SELFPAY ==
[2023-01-09 07:31] VITALS: BP 168/80; PULSE 68; RESP 16; TEMP 36.4; O2SAT 95; BMI 40.0
[2023-01-09 07:49] VITALS: BP 146/72; PULSE 57; RESP 16; TEMP 36.8; O2SAT 96
--- NOTE | 2023-01-09 07:50 | PC.NURSE ---
pt reporting 8/10 right buttock pain. vitals stable, DP and PT pulses 2+. No edema noted.
--- NOTE | 2023-01-09 08:09 | ED_ITS ---
HPI - General Adult General Chief complaint: Back Pain/Injury Stated complaint: lower back pain Time Seen by Provider: 01/09/23 07:54 Source: patient and community relations assistant Mode of arrival: ambulatory Limitations: language barrier History of Present Illness HPI narrative: Patient is a 62 year old assigned female at with a history of sciatic back pain, HTN, and GERD presenting to the emergency department today with right sided low back pain. Patient states that she has had this kind of pain before and was diagnosed with sciatic nerve pain for which she is on gabapentin. Patient states that it is right sided low back pain that goes down the right side of her leg. Patient denies any dizziness, lightheadedness, abdominal pain, nausea, vomiting, fever, chills, blurry vision, double vision, loss of vision, chest pain, difficulty breathing, shortness of breath, night sweats, pain with urination, increased urinary frequency, increased urinary urgency, blood in her urine or stool, syncope or a near syncopal episode, recent trauma or falls, bowel incontinence, bladder incontinence, bowel retention, bladder retention, or any other complaints at this time. Onset (ago): day(s) Location: back Radiation: extremity Severity: mild Severity scale (1-10): 3 Relieving factors: none Exacerbating factors: none Associated symptoms: denies other symptoms Treatments prior to arrival: none Related Data Home Medications Medication Instructions Recorded Confirmed cholecalciferol (vitamin D3) 25 25 mcg PO DAILY 05/22/21 07/18/22 mcg (1,000 unit) chewable tablet rosuvastatin 10 mg tablet 10 mg PO DAILY 05/22/21 07/18/22 sertraline 100 mg tablet 100 mg PO DAILY 05/22/21 07/18/22 zolpidem 10 mg tablet 10 mg PO BEDTIME PRN 05/22/21 07/18/22 gabapentin 100 mg capsule 100 mg PO BID 07/03/22 07/18/22 lisinopril 5 mg tablet 5 mg PO DAILY 07/03/22 07/18/22 metoprolol succinate 25 mg 12.5 mg PO DAILY 07/03/22 07/18/22 tablet,extended release 24 hr Previous Rx's Medication Instructions Recorded lidocaine 4 % topical patch 1 patch topical DAILY PRN pain #10 12/23/21 ea omeprazole 20 mg capsule,delayed 20 mg PO DAILY #30 caps 01/03/23 release cyclobenzaprine 5 mg tablet 5 mg PO TID PRN muscle spasm 7 01/09/23 days #21 tabs Allergies Allergy/AdvReac Type Severity Reaction Status Date / Time No Known Allergies Allergy Verified 01/09/23 07:36 Review of Systems Constitutional: Constitutional: Reports no additional constitutional complaints, Denies chills, Denies fever(s) and Denies night sweats Eyes: Eyes: Reports no additional eye complaints, Denies blurry vision, Denies change in vision, Denies diplopia, Denies eye discharge, Denies loss of vision and Denies eye pain ENT: Denies dizziness Cardiovascular: Cardiovascular: Reports no additional cardiovascular complaints, Denies chest pain, Denies lightheadedness, Denies Loss of Consciousness and Denies dyspnea Respiratory: Respiratory: Reports no additional respiratory complaints and Denies dyspnea Gastrointestinal: Gastrointestinal: Reports no additional gastrointestinal complaints, Denies abdominal pain, Denies melena, Denies hematochezia, Denies change in bowel habits and Denies change in stool character Genitourinary: Genitourinary: Denies hematuria, Denies urinary frequency, Denies dysuria, Denies urinary incontinence, Denies urinary hesitancy and Denies urinary urgency Musculoskeletal: Musculoskeletal: Reports no additional musculoskeletal complaints, Reports back pain, Denies numbness and Denies tingling Neurologic: Denies dizziness, Denies loss of vision, Denies numbness and Denies tingling Psychiatric: Psychiatric: Reports no additional psychiatric complaints Endocrine: Endocrine: Reports no additional endocrine complaints Hematologic/Lymphatic: Hematologic/Lymphatic: Reports no additional hematologic/lymphatic complaints Allergic/Immunologic: Allergic/Immunologic: Reports no additional allergic/immunologic complaints [facility] Past Medical History Attestation statement: The following information was validated with the patient. Source: old records reviewed and nursing notes reviewed Medical History Anxiety Carpal tunnel syndrome Cholecystectomy planned Depression Diabetes Essential hypertension History of mitral valve prolapse Hypertension Mild cognitive disorder PTSD (post-traumatic stress disorder) Sciatica Spondylosis Surgical History H/O: hysterectomy Family History Family History Father Cardiomyopathy Mother Bone cancer Brother Atherosclerotic heart disease Social History Social History Household Members: Family Alcohol intake: never Patient Tobacco Use Status: Never used Tobacco Use of substances other than those prescribed or required for medical reasons: No Advance Directives: No Advance Directives Information Provided: Yes Patient : No Physical Exam ED Vital Signs: Vital Signs - 24 hr 01/09/23 07:31 01/09/23 07:49 01/09/23 08:37 Temperature 97.5 F 98.2 F 98.1 F Pulse Rate 68 57 66 Respiratory Rate 16 16 16 Blood Pressure 168/80 H 146/72 H 151/78 H Pulse Oximetry 95 96 96 Oxygen Delivery Method Room Air Room Air Room Air BMI result Body Mass Index 40.0 Const General: cooperative, no acute distress, alert and awake Nutritional Appearance: well nourished Orientation/consciousness: patient oriented x3 Limitations: no limitations HENMT Head: Yes normal to inspection and Yes atraumatic Ears: hearing grossly normal bilaterally and external ears normal General nose exam: Normal external nose present, no nasal discharge noted and no epistaxis Face and sinus: Yes normal facial exam, No abrasion and No laceration Mouth: Normal oral and palatal mucosa present, no drooling and no muffled voice Eyes General: appearance normal, both eyes and all related structures Periorbital: periorbital findings normal Eyelids: Yes eyelids normal Conjunctivae: conjunctivae normal Pupils: Equal, round and reactive pupils present EOM: EOMs intact bilaterally Neck Neck: Yes normal visual inspection, Yes full ROM and Yes no lymphadenopathy Chest Chest palpation & inspection: normal inspection of the chest Resp Effort & Inspection: normal respiratory effort and able to speak in complete sentences Auscultation: clear to auscultation bilaterally Cardio Rate: regular rate Rhythm: regular rhythm GI Inspection: Yes normal to inspection Palpation (GI): Soft to palpation, not firm, nontender and no guarding General: Yes no CVA tenderness Back/Spine/Pelvis Back: no CVA tenderness Cervical Spine: normal cervical lordosis and cervical ROM normal Thoracic/Lumbar Spine: thoracic and lumbar spine normal to inspection and thoraco-lumbar ROM normal Neuro General: patient oriented x3 and moves all extremities Cranial nerves: Yes Equal, round and reactive pupils present Cognition (Neuro): normal cognition Motor exam (neuro): 5/5 motor strength present throughout Sensory Exam: Normal double simultaneous stimulation for sensation Coordination: [id number] test normal Extrem General: Yes normal to inspection, Yes full ROM and Yes capillary refill normal Psych Appearance: grossly normal Mental Status: mental status grossly normal Affect: normal affect Attitude: cooperative Thought process: Normal thought process present Thought content: Normal thought content present Insight: Good insight present (Psych) Medications Administered Discontinued Medications Generic Name Dose Route Start Last Admin Trade Name Raúl PRN Reason Stop Dose Admin Cyclobenzaprine HCl 5 mg 01/09/23 08:18 01/09/23 08:27 Cyclobenzaprine Hcl 5 Mg Tablet PO 01/09/23 08:19 5 mg ONCE ONE Administration Ketorolac Tromethamine 15 mg 01/09/23 08:18 01/09/23 08:28 Ketorolac Tromethamine 15 Mg/Ml Vial IM 01/09/23 08:19 15 mg ONCE ONE Administration Medical Decision Making Medical Decision Making MDM Narrative: Patient is a 62 year old assigned female at with a history of HTN, GERD, and sciatic back pain presenting to the emergency department today with right sided back pain. Patient's physical exam was unremarkable. I explained my physical exam findings to the patient. I answered all questions asked by the patient. Patient received IM Toradol and PO Flexeril which she stated helped her symptoms significantly. I stressed the importance of the patient taking her medication as prescribed. I stressed the importance of the patient following up with her primary care provider and a rheumatology specialist. I stressed the importance of the patient returning to the emergency department immediately if her symptoms were to worsen or if she were to develop any dizziness, shortness of breath, difficulty breathing, chest pain, blurry vision, loss of vision, nausea, vomiting, abdominal pain, fever, chills, back pain, or any other complaints. Patient verbalized agreement and understanding with this treatment plan and discharge. Differential Diagnosis Differential Diagnoses: The differential diagnosis associated with the presentation includes sciatica Discharge Plan Discharge Clinical Impression: Sciatica Patient Disposition: Home, Self-Care Instructions: Sciatica (ED) Additional Instructions: Follow up with your primary care provider. Return to the emergency department immediately if your symptoms worsen or if you develop any dizziness, shortness of breath, difficulty breathing, chest pain, blurry vision, loss of vision, nausea, vomiting, abdominal pain, fever, chills, back pain, or any other complaints. Kelly un seguimiento con pond proveedor de atenci?n primaria. Regrese al departamento de emergencias de inmediato si renea s?ntomas empeoran o si presenta mareos, falta de aire, dificultad para respirar, dolor en el pecho, visi?n borrosa, p?rdida de la visi?n, n?useas, v?mitos, dolor abdominal, fiebre, escalofr?os, dolor de espalda o cualquier otras quejas. Prescriptions: New cyclobenzaprine 5 mg tablet 5 mg PO TID PRN (Reason: muscle spasm) 7 Days Qty: 21 0RF No Action omeprazole 20 mg capsule,delayed release(DR/EC) 20 mg PO DAILY Qty: 30 5RF lidocaine 4 % adhesive patch,medicated 1 patch topical DAILY PRN (Reason: pain) Qty: 10 0RF Rx Instructions: may leave on for up to 12 hrs zolpidem 10 mg tablet 10 mg PO BEDTIME PRN cholecalciferol (vitamin D3) 25 mcg (1,000 unit) tablet,chewable 25 mcg PO DAILY rosuvastatin 10 mg tablet 10 mg PO DAILY sertraline 100 mg tablet 100 mg PO DAILY metoprolol succinate 25 mg tablet extended release 24 hr 12.5 mg PO DAILY lisinopril 5 mg tablet 5 mg PO DAILY gabapentin 100 mg capsule 100 mg PO BID Referrals: [facility] [Provider Group] (Call to establish and follow up with a rheumatology specialist. Llame para establecer y hacer un seguimiento con dexter especialista en [place] vertebral.) [place],[facility] [Primary Care Provider] - Interventions: ED Discharge Assessment Last Done: 01/09/23 08:39 Discharge Date/Time: 01/09/23 08:40 Print Language: Kosovan
[2023-01-09] MEDS: Cyclobenzaprine HCl 5 MG TABLET PO (08:27)
[2023-01-09] MEDS: Ketorolac Tromethamine 15 MG/ML VIAL IM (08:28)
[2023-01-09 08:37] VITALS: BP 151/78; PULSE 66; RESP 16; TEMP 36.7; O2SAT 96
--- NOTE | 2023-01-09 08:38 | PC.NURSE ---
patient a&ox3, c/o lower back pain radiating to legs pt seen by provider, pt medicated for pain, vss, pt to discharge home before pain reassessment is due.
== END 2023-01-09 08:40 | disposition home or self-care (01) ==
PROVIDERS: Emergency Provider Emergency Medicine
DX: M54.41 Lumbago with sciatica, right side (principal); R20.0 Anesthesia of skin; R07.89 Other chest pain; R26.2 Difficulty in walking, not elsewhere classified; Z79.899 Other long term (current) drug therapy
CPT/HCPCS: 93005; 96372; 99212; 99284; J1885

== ENCOUNTER → 2023-01-30 11:35 | Outpatient (BNVA) | payer MEDICAID, SELFPAY | PROVIDERS: PCP Registered Nurse; Visit Provider Nurse Practitioner Family | DX: G47.19 Other hypersomnia (principal); G47.33 Obstructive sleep apnea (adult) (pediatric) | CPT/HCPCS: 99202 ==

== ENCOUNTER → 2023-02-03 08:20 | Outpatient (REF) | payer MEDICAID, SELFPAY ==
--- NOTE | ~2023-02-03 | NM_ITS ---
Exercise Myocardial perfusion study Indication: Precordial chest pain to evaluate for myocardial ischemia Technique: The patient was brought in for an exercise perfusion study on 02/03/2023. Patient performed exercise as per Raheem protocol and was injected 30 mCi of sestamibi was given intravenously one target HR was achieved. Images were obtained using the SPECT gamma camera interlaced with the gating device. Images were obtained in supine position. Resting perfusion study was performed on 02/04/2023. Patient was administered 30 mCi of sestamibi intravenously at rest. Images were then obtained in supine position. Images obtained with and without CT attenuation. Total DLP 142 mGy-cm. Images were processed with the software and compared side to side in short axis, horizontal long axis and vertical long axis views. Findings: The stress perfusion study showed non attenuated images show normal uptake of radiotracer in all segments of LV myocardium. Attenuation corrected images show minimally reduced uptake in the distal septum and apex of the LV myocardium. The gated study shows normal LV systolic function with calculated LVEF of 60%. LV cavity is normal in size. The gated study shows normal systolic wall thickening and contraction of all segments. There is no transient ischemic dilation. Resting study shows no change in perfusion pattern compared to stress perfusion study. Gating at rest reveals normal systolic wall motion with ejection fraction at 62%. The findings are consistent with normal myocardial perfusion. NM/NM cardiolite stress test Impression: 1. Normal myocardial perfusion 2. Gated LVEF is 60% 3. Transient ischemic dilatation not present Stress EKG is negative for ischemia
--- NOTE | 2023-02-03 08:26 | CA_ITS ---
Acquisition Time: 2023-02-03 08:40:14 Total Exercise Time: 00:06:16 Test Indications: CHEST PAIN Medications: SEE H Protocol: VINNY Max HR: 160 BPM 101% of Pred: 158 BPM Max BP: 170/070 mmHG Max Work Load: 7.4 METS Exercise stress test exercise 6 min 16 sec of Vinny procotol achieving 99% MPHR, with mild SOB, without chest discomfort , without arrhythmias, with normotensive response to exercise, without EKG changes meeting criteria for ischemia. Nuclear images pending. Test reviewed with Dr. Ignacio. Referred By: Kalyan Ignacio Overread By: ELÍAS JUNE
== END ==
LOC: HO.CARD 08:20
PROVIDERS: Visit Provider Internal Medicine
DX: R07.2 Precordial pain (principal)
CPT/HCPCS: 78452; 93017; A9500

== ENCOUNTER 2023-02-13 09:00 | Outpatient (RCR) | payer MEDICAID, SELFPAY | END 2023-04-04 13:45 | disposition home or self-care (01) | LOC: HO.PT 09:00 | PROVIDERS: PCP Registered Nurse; Visit Provider Registered Nurse | DX: M54.41 Lumbago with sciatica, right side (principal) | CPT/HCPCS: 97110; 97140; 97162; 97530 ==

== ENCOUNTER → 2023-03-04 12:01 | Outpatient (REF) | payer MEDICAID, SELFPAY | LOC: HO.SL 12:01 | PROVIDERS: Visit Provider Nurse Practitioner Family | DX: G47.33 Obstructive sleep apnea (adult) (pediatric) (principal); G47.19 Other hypersomnia | CPT/HCPCS: 95806 ==

== ENCOUNTER 2023-03-18 09:16 | Day surgery (SDC) | payer MEDICAID, SELFPAY ==
[2023-03-13 14:58] VITALS: BMI 40.2
--- NOTE | 2023-03-17 10:54 | P.CONAN_ITS ---
Documented by User: Eleni Nunn NP 03/17/23 14:24 HPI - Anesthesia Eval Consult details Narrative: 63yo F for Upper Endoscopy and Colonoscopy Cardiac cleared at low risk Sleep medicine/neuro cleared Mild degree of sleep apnea and compliance was unavailable per text [facility] Active Problems Active Problems: All Active Problems (Updated 03/13/23 @ 14:58 by Melina Dunlap RN) Obstructive sleep apnea (Acute) Hypotension (Acute) Syncope and collapse (Acute) Encounter for screening colonoscopy (Acute) Acid reflux (Acute) Abdominal pain (Acute) Plantar fasciitis of right foot (Acute) Precordial chest pain (Acute) Excessive daytime sleepiness (Acute) Essential hypertension (Acute) Past Medical History Medical History Anxiety Arthritis Carpal tunnel syndrome Cholecystectomy planned Depression Diabetes Essential hypertension Gastritis GERD (gastroesophageal reflux disease) History of mitral valve prolapse Hypertension Mild cognitive disorder PTSD (post-traumatic stress disorder) Sciatica Sleep apnea Spondylosis Family History Family History Father Cardiomyopathy Mother Bone cancer Brother Atherosclerotic heart disease Surgical History Surgical History (Updated 03/18/23 @ 09:26 by Renae Arias RN) H/O colonoscopy H/O: hysterectomy History of carpal tunnel release of both wrists History of esophagogastroduodenoscopy (EGD) Social History Social History Household Members: Family Alcohol intake: never Patient Tobacco Use Status: Never used Tobacco Use of substances other than those prescribed or required for medical reasons: No Are you DNR?: No Advance Directives: No Advance Directives Information Provided: Yes Meds Allergies Allergy/AdvReac Type Severity Reaction Status Date / Time No Known Allergies Allergy Verified 03/18/23 09:26 Home Medications Medication Instructions Recorded Confirmed Last Taken Type cholecalciferol (vitamin D3) 25 25 mcg PO DAILY 05/22/21 03/13/23 Unknown His tory mcg (1,000 unit) chewable tablet rosuvastatin 10 mg tablet 10 mg PO DAILY 05/22/21 03/13/23 Unknown History sertraline 100 mg tablet 100 mg PO DAILY 05/22/21 03/13/23 Unknown History gabapentin 100 mg capsule 400 mg PO BID 07/03/22 03/18/23 Unknown History metoprolol succinate 25 mg 25 mg PO DAILY 07/03/22 03/18/23 Unknown History tablet,extended release 24 hr amitriptyline 25 mg tablet 25 mg PO BEDTIME 01/09/23 03/13/23 Unknown History aspirin 81 mg tablet,delayed 81 mg PO DAILY 01/09/23 03/13/23 03/14/23 History release (Adult Low Dose Aspirin) chlorthalidone 50 mg tablet 50 mg PO DAILY 01/09/23 03/13/23 Unknown History clonazepam 1 mg tablet 1 mg PO BID 01/09/23 03/13/23 Unknown History loratadine 10 mg tablet (Claritin) 10 mg PO DAILY 01/09/23 03/13/23 Unknown History olmesartan 20 mg tablet 20 mg PO DAILY 01/09/23 03/13/23 Unknown History quetiapine 150 mg tablet,extended 150 mg PO BEDTIME 01/09/23 03/13/23 Unknown History release 24 hr calcium carbonate 600 mg-vitamin 1 tab PO DAILY 03/18/23 03/18/23 Unknown History D3 5 mcg (200 unit) tablet ketotifen fumarate 0.025 % (0.035 1 drp ophthalmic (eye) BID PRN 03/18/23 03/18/23 Unknown History %) eye drops itching of eye lidocaine 4 % topical gel 1 appl topical QD-TID PRN Muscle 03/18/23 03/18/23 Unknown History Pain lisinopril 10 mg tablet 10 mg PO DAILY 03/18/23 03/18/23 Unknown History peg 400-propylene glycol (PF) 0.4 1 drp ophthalmic (eye) BID PRN Eye 03/18/23 03/18/23 Unknown History %-0.3 % eye drops in a dropperette Irritation (Systane (PF)) Exam Exam Date and Time: March 17, 2023 1054 Height,Weight and Vital Signs: Height 4 ft 9 in Weight 84.368 kg Narrative Narrative: EKG 01/2023 sinus rhythm at 68/Min; nonspecific ST-T changes; normal CO and corrected QT. NM cardiolite stress test 01/2023 Impression: ? 1.? Normal myocardial perfusion 2.? Gated LVEF is 60% 3. Transient ischemic dilatation not present ? Stress EKG is negative for ischemia ECHO 2021 Conclusions: - 1.? Normal LV systolic function with impaired relaxation ? ? ? filling pattern with elevated filling pressures? 2.? Normal cardiac valvular Doppler? 3.? Normal RV systolic pressure? 4.? No gross pericardial effusion?? Assessment and Plan Assessment Anesthesia Assessment: Chart Reviewed Documented by User: Apoorva Garay MD 03/18/23 10:44 [facility] Past Medical History Medical History Anxiety Arthritis Carpal tunnel syndrome Cholecystectomy planned Depression Diabetes Essential hypertension Gastritis GERD (gastroesophageal reflux disease) History of mitral valve prolapse Hypertension Mild cognitive disorder PTSD (post-traumatic stress disorder) Sciatica Sleep apnea Spondylosis Family History Family History Father Cardiomyopathy Mother Bone cancer Brother Atherosclerotic heart disease Family history of problems with anesthesia: No Surgical History Surgical History (Updated 03/18/23 @ 09:26 by Renae Arias, KATIE) H/O colonoscopy H/O: hysterectomy History of carpal tunnel release of both wrists History of esophagogastroduodenoscopy (EGD) History of Problems with Anesthesia: No Social History Social History Household Members: Family Alcohol intake: never Patient Tobacco Use Status: Never used Tobacco Use of substances other than those prescribed or required for medical reasons: No Are you DNR?: No Advance Directives: No Advance Directives Information Provided: Yes Meds Allergies Allergy/AdvReac Type Severity Reaction Status Date / Time No Known Allergies Allergy Verified 03/18/23 09:26 Home Medications Medication Instructions Recorded Confirmed Last Taken Type cholecalciferol (vitamin D3) 25 25 mcg PO DAILY 05/22/21 03/13/23 Unknown History mcg (1,000 unit) chewable tablet rosuvastatin 10 mg tablet 10 mg PO DAILY 05/22/21 03/13/23 Unknown History sertraline 100 mg tablet 100 mg PO DAILY 05/22/21 03/13/23 Unknown History gabapentin 100 mg capsule 400 mg PO BID 07/03/22 03/18/23 Unknown History metoprolol succinate 25 mg 25 mg PO DAILY 07/03/22 03/18/23 Unknown History tablet,extended release 24 hr amitriptyline 25 mg tablet 25 mg PO BEDTIME 01/09/23 03/13/23 Unknown History aspirin 81 mg tablet,delayed 81 mg PO DAILY 01/09/23 03/13/23 03/14/23 History release (Adult Low Dose Aspirin) chlorthalidone 50 mg tablet 50 mg PO DAILY 01/09/23 03/13/23 Unknown History clonazepam 1 mg tablet 1 mg PO BID 01/09/23 03/13/23 Unknown History loratadine 10 mg tablet (Claritin) 10 mg PO DAILY 01/09/23 03/13/23 Unknown History olmesartan 20 mg tablet 20 mg PO DAILY 01/09/23 03/13/23 Unknown History quetiapine 150 mg tablet,extended 150 mg PO BEDTIME 01/09/23 03/13/23 Unknown History release 24 hr calcium carbonate 600 mg-vitamin 1 tab PO DAILY 03/18/23 03/18/23 Unknown History D3 5 mcg (200 unit) tablet ketotifen fumarate 0.025 % (0.035 1 drp ophthalmic (eye) BID PRN 03/18/23 03/18/23 Unknown History %) eye drops itching of eye lidocaine 4 % topical gel 1 appl topical QD-TID PRN Muscle 03/18/23 03/18/23 Unknown History Pain lisinopril 10 mg tablet 10 mg PO DAILY 03/18/23 03/18/23 Unknown History peg 400-propylene glycol (PF) 0.4 1 drp ophthalmic (eye) BID PRN Eye 03/18/23 03/18/23 Unknown History %-0.3 % eye drops in a dropperette Irritation (Systane (PF)) Exam Airway Mallampati Class: I TM Dist: >3cm Neck ROM: Full Denture: Upper and Lower Loose/Missing/Broken Teeth: No Heart: rr Lungs: cta Assessment and Plan Assessment Anesthesia Assessment: Anesthesia Plan Discussed Final Anesthetic Review Family History of Problems with Anesthesia: No History of Problems with Anesthesia: No NPO: Yes ASA Class: II Final Preanesthetic Review: No Changes in Pt Med Stat, Meds/Allgs Chart Reviewed, Consent Obtained/Reviewed and Anes Risks/Benef Reviewed Patient Risk: Low Procedure Risk: Low Anesthetic Plan Anesthetic Plan: MAC: Disposition: Standard PACU
[2023-03-18 09:26] VITALS: BMI 39.2
[2023-03-18 09:45] VITALS: BP 135/83; PULSE 62; RESP 16; TEMP 36.4; O2SAT 93
[2023-03-18] MEDS: Lactated Ringers 1,000 ML 100 ML IVCONT (10:05)
[2023-03-18 10:09] LABS: Glucose, Whole Blood 73 mg/dL (60-115)
--- NOTE | 2023-03-18 10:26 | P.HPSUR_ITS ---
Pre-Procedural Eval Section A Date of Service: 03/18/23 Section B Chief Complaint: Screening,GERD,Unspecified abdominal pain Relevant Family History (Specify if Yes): No Relevant Social History: None Present Medications: see Short Stay Collaborative assessment Medical History: Significant History (Anxiety Carpal tunnel syndrome Cholecystectomy planned Depression Diabetes Essential hypertension History of mitral valve prolapse Hypertension Mild cognitive disorder PTSD (post-traumatic stress disorder) Sciatica Sleep apnea Spondylosis) History of Previous Operations: Relevant previous surgery/procedure and date(s) (H/O colonoscopy H/O: hysterectomy History of esophagogastroduodenoscopy (EGD)) Allergies: Allergies Allergy/AdvReac Type Severity Reaction Status Date / Time No Known Allergies Allergy Verified 03/18/23 09:26 Review of Systems Sugical H&P ROS: Negative: Constitution, Cardiovascular, Respiratory, Neurological, Psychiatric, Hem-Onc, Allergic/Immunologic, Gastrointestinal, Genitourinary, Musculoskeletal, Integumentary, Endocrine and Eyes/ Ears/Nose/Throat Exam Surgical H&P Exam: Normal: HEENT, Normal: Heart, Normal: Lungs, Normal: Extremities, Normal: Abdomen, Normal: Skin and Normal: Neurological Plan Diagnosis/Plan: Unchanged I have reviewed the history and physical and performed a pertinent physical examination on my patient. No changes have occurred unless specified. Time Spent With Patient Time: Total time managing care of this patient today ____ minutes.
--- NOTE | 2023-03-18 10:53 | P.OP_ITS ---
Operative Note Operative Note Date of Service: 03/18/23 Narrative: Operative Information Procedure Description: EGD, Colonoscopy Indication: GERd, epigastric pain and screening Anesthesia: MAC FLEXIBLE TRANSORAL UPPER GASTROINTESTINAL ENDOSCOPY AND COLONOSCOPY PROCEDURE NOTE UPPER ENDOSCOPY Consent: Indications for the procedure and potential complications of bleeding, perforation, reaction to medications and missed diagnosis were discussed with the patient and informed consent was obtained. Instrument: Olympus GIF H 190 J mid size upper endoscope Monitoring: Vital signs and clinical assessment, continuous EKG monitoring, Pulse oximetry, Carbon Dioxide monitoring and blood pressure monitoring were done throughout the procedure. Procedure: The patient was placed in the left lateral decubitis position and pre-procedure medications were administered and a bite block was placed. The endoscope was inserted into the mouth and advanced under direct vision to the third part of duodenum. A careful inspection was made as the upper endoscope was withdrawn including a retroflexed examination of the proximal stomach; Findings and interventions are described below. Findings: Larynx:normal Esophagus: GE junction at 38 cm, diaphragm hiatus at 38 cm, bogginess and eryth faith at GEJ, bx taken Stomach: Patchy erythema. Biopsies were obtained. Grade 2 flap valve on retroflexed examination of the cardia. Duodenum: Normal bulb and descending duodenum, bx taken Intervention: Biopsies as noted above COLONOSCOPY Instrument: Olympus variable stiffness pediatric scope 190L Colonoscopy Monitoring: Vital signs and clinical assessment, continuous EKG monitoring, Pulse oximetry, Carbon Dioxide monitoring and blood pressure monitoring were done throughout the procedure. Colon withdrawal time was 8 minutes. Procedure: The patient was placed in the left lateral decubitis position and pre-procedure medications were administered. After a digital rectal examination of the ano-rectum, the video colonoscope was inserted into the rectum and advanced through the colon to the cecum/TI. The colonoscope was slowly withdrawn in a retrograde panoramic fashion and the colon mucosa was carefully examined including a retroflexed view of the rectum. Findings and interventions are described below. Procedure Difficulty:moderate Findings: Terminal Ileum- unable to intubate Cecum:normal Ascending Colon: normal Transverse Colon -normal Descending Colon:normal Sigmoid Colon: moderate diverticulosis Rectum: Retroflexion with small internal hemorrhoids, grade I Anorectum - normal Colon preparation: [place] Bowel Preparation Scale Right colon; 2 Transverse colon: 2 Left colon; 2 (0 = Unprepared colon segment with mucosa not seen due to solid stool that cannot be cleared. 1 = Portion of mucosa of the colon segment seen, but other areas of the colon segment not well seen due to staining, residual stool and/or opaque liquid. 2 = Minor amount of residual staining, small fragments of stool and/or opaque liquid, but mucosa of colon segment seen well. 3 = Entire mucosa of colon segment seen well with no residual staining, small fragments of stool or opaque liquid) Impression and Post Procedure Diagnosis: Endoscopy Findings: gastritis Colonoscopy Findings: internal hemorrhoids diverticular disease Plan: Await Pathology results Repeat Colonoscopy in 10 years or earlier if clinically indicated High fiber diet leaflet avoid straining at stool, epsom salts and sitz bath, anusol supps or cream if H pylori pos then treat, if neg then GES Above findings were reviewed with the patient and relevant handouts were provided if indicated.
[2023-03-18 11:14] VITALS: BP 115/78; PULSE 86; RESP 16; TEMP 36.5; O2SAT 97
[2023-03-18 11:29] VITALS: BP 119/76; PULSE 62; RESP 16; O2SAT 97
[2023-03-18 11:44] VITALS: BP 135/84; PULSE 60; RESP 17; TEMP 36.1; O2SAT 97
== END 2023-03-18 12:15 | disposition home or self-care (01) ==
PROVIDERS: Visit Provider Internal Medicine Gastroenterology
PROC: (CPT 45380; principal; 2023-03-18 11:00)
DX: Z12.11 Encounter for screening for malignant neoplasm of colon (principal); K57.30 Diverticulosis of large intestine without perforation or abscess without bleeding; K64.0 First degree hemorrhoids; K21.9 Gastro-esophageal reflux disease without esophagitis; K29.50 Unspecified chronic gastritis without bleeding; K44.9 Diaphragmatic hernia without obstruction or gangrene; I10 Essential (primary) hypertension; E11.9 Type 2 diabetes mellitus without complications; F41.1 Generalized anxiety disorder; F43.10 Post-traumatic stress disorder, unspecified; G47.33 Obstructive sleep apnea (adult) (pediatric); Z79.899 Other long term (current) drug therapy; Z79.82 Long term (current) use of aspirin
CPT/HCPCS: 45380; 43239; 82947; 88305; 88342

== ENCOUNTER → 2023-04-02 20:30 | Outpatient (REF) | payer MEDICAID, SELFPAY | LOC: HO.SL 20:30 | PROVIDERS: Visit Provider Nurse Practitioner Family | DX: G47.33 Obstructive sleep apnea (adult) (pediatric) (principal) | CPT/HCPCS: 95811 ==

== ENCOUNTER → 2023-04-03 04:06 | Outpatient (BNV) | payer MEDICAID, SELFPAY | PROVIDERS: Visit Provider Psychiatry & Neurology Neurology | DX: G47.33 Obstructive sleep apnea (adult) (pediatric) (principal) | CPT/HCPCS: 95811 ==

== ENCOUNTER → 2023-04-03 09:52 | Outpatient (BNVA) | payer MEDICAID, SELFPAY | PROVIDERS: Visit Provider Physician Assistant | DX: K29.70 Gastritis, unspecified, without bleeding (principal); K57.30 Diverticulosis of large intestine without perforation or abscess without bleeding; K64.8 Other hemorrhoids | CPT/HCPCS: 99212 ==

== ENCOUNTER 2023-06-19 11:24 | Outpatient (AMB) | payer MEDICAID, SELFPAY ==
--- NOTE | 2023-06-19 11:50 | MHC.OFFVIS ---
Intake Vital Signs 06/19/23 11:53 Weight 182 lb 6 oz BP 132/90 H Blood Pressure Location Rt brachial Position Sitting Pulse 66 Pulse Source Pulse Oximeter Pulse Oximetry (%) 99 Oxygen Delivery Method Room Air Intake Visit Reasons: 2MONTH FOLLOW UP - Confirmed Intake Note: SILVANO fup, still has issues c machine Allergies No Known Allergies Allergy (Verified 06/19/23 11:55) HPI HPI Comments History of Present Illness Details 63 y/o female patient presents for follow up of SILVANO on CPAP. Pt's CPAP pressure was changed to 5cmH2O. She feels less pressure and sleep better with the new pressure. Pt reports that she sleeps well, less snoring and daytime sleepiness has improved when she uses CPAP. However, her CPAP makes very loud noise and the humidifier does not work well. She could not use more than a week now. The CPAP compliance and therapy response (03/12/23-06/09/23) reviewed. The usage days 97% and the average usage hours 7 hrs 30 min. The AHI was 0.7/hr. [facility] Medical History Gastritis GERD (gastroesophageal reflux disease) Arthritis Sleep apnea Essential hypertension Cholecystectomy planned History of mitral valve prolapse Hypertension Mild cognitive disorder Carpal tunnel syndrome Spondylosis PTSD (post-traumatic stress disorder) Sciatica Anxiety Depression Diabetes Surgical History History of carpal tunnel release of both wrists History of esophagogastroduodenoscopy (EGD) H/O colonoscopy H/O: hysterectomy Family History Father Cardiomyopathy Mother Bone cancer Brother Atherosclerotic heart disease Social History Household Members: Family Alcohol intake: never Patient Tobacco Use Status: Never used Tobacco Review of Systems Const All systems reviewed & are unremarkable except as noted in HPI and below ENT Reports Normal hearing present Neuro Reports Normal hearing present Physical Exam Vital Signs: Last Vital Signs Pulse 66 06/19/23 11:53 BP 132/90 H 06/19/23 11:53 Pulse Ox 99 06/19/23 11:53 Oxygen Delivery Method Room Air 06/19/23 11:53 Const General: cooperative Nutritional Appearance: obese Orientation/consciousness: patient oriented x3 Limitations: language barrier Neck Neck: Yes full ROM and Yes supple Resp Effort & Inspection: normal respiratory effort and able to speak in complete sentences Neuro General: patient oriented x3 Cranial nerves: Yes Bilaterally intact EOM present, Yes Normal facial strength present, Yes Midline tongue present, Yes Symmetric palate elevation present, Yes Normal hearing present, Yes Ability to bilaterally rotate head present and Yes Ability to bilaterally elevate shoulders present Cognition (Neuro): normal cognition Gait exam (Neuro): Normal gait present Motor exam (neuro): 5/5 motor strength present throughout, Pronator motor function not present and no tremor noted Psych Appearance: grossly normal Mental Status: mental status grossly normal Speech and movement: Normal speech and movement present Affect: normal affect Attitude: cooperative Assessment & Plan Assessment & Plan (1) Obstructive sleep apnea: Comment: Severe degree of sleep apnea. The AHI was 27/hr and oxygen paul was 81% Code(s): G47.33 - Obstructive sleep apnea (adult) (pediatric) Plan Continue to use CPAP at 5cmH2O as patient experiences good clinical effects. [facility] information given to patient. Advised [facility] and [facility] the [facility]. Stressed compliance, use CPAP nightly and more than 4 hrs. Encouraged patient to increase physical activity and wt reduction advised. Coding Level of Care Code Est Pt Level 3 (15230) Diagnoses Obstructive sleep apnea G47.33
[2023-06-19 11:53] VITALS: BP 132/90; PULSE 66; O2SAT 99
== END 2023-06-19 12:11 | disposition home or self-care (01) ==
PROVIDERS: Visit Provider Nurse Practitioner Family
DX: G47.33 Obstructive sleep apnea (adult) (pediatric) (principal)
CPT/HCPCS: 99213

== ENCOUNTER → 2023-06-19 11:24 | Outpatient (BNVA) | payer MEDICAID, SELFPAY | PROVIDERS: Visit Provider Nurse Practitioner Family | DX: G47.33 Obstructive sleep apnea (adult) (pediatric) (principal); Z99.89 Dependence on other enabling machines and devices | CPT/HCPCS: 99212 ==

== ENCOUNTER 2023-06-24 18:36 | Outpatient (REF) | payer MEDICAID, SELFPAY ==
[2023-06-25 11:01] LABS: BV Int Neg Control Negative (Negative); BV Int Pos Control Positive (Positive)
== END 2023-06-24 18:37 | disposition home or self-care (01) ==
LOC: HO.HHCLNP 18:36
PROVIDERS: Visit Provider Registered Nurse
DX: N89.8 Other specified noninflammatory disorders of vagina (principal)
CPT/HCPCS: 87480; 87510; 87660

== ENCOUNTER 2023-07-18 08:21 | Outpatient (REF) | payer MEDICAID, SELFPAY ==
--- NOTE | ~2023-07-18 | MM_ITS ---
EXAMINATION: MM SCREENING DIGITAL BREAST TOMOSYNTHESIS, BILATERAL CLINICAL INFORMATION: Screening. Asymptomatic. COMPARISON: Mammography: This study is compared with prior exams dating back to 2019. TECHNIQUE: Digital breast tomosynthesis is performed in both the craniocaudal and mediolateral oblique views along with computer-aided detection (CAD). Synthesized 2D images are generated from the tomosynthesis. FINDINGS: There are scattered areas of fibroglandular density (ACR BI-RADS breast composition Category b). There are no significant masses, abnormal calcifications, or other abnormalities. Few, benign calcifications are present in each breast. MM/MM tomosynthesis screening BI IMPRESSION: No mammographic evidence of malignancy. ASSESSMENT: BI-RADS BI-RADS 2 - Benign Findings RECOMMENDATION: Routine annual mammography screening. 1 year F/U This examination should not preclude the clinical evaluation of a suspicious palpable abnormality. This patient's information was entered into a reminder system with a target due date for their next mammogram.
== END 2023-07-18 08:22 | disposition home or self-care (01) ==
LOC: HO.MAMMO 08:21
PROVIDERS: PCP Registered Nurse; Visit Provider Internal Medicine
DX: Z12.31 Encounter for screening mammogram for malignant neoplasm of breast (principal)
CPT/HCPCS: 77063; 77067

== ENCOUNTER → 2023-07-18 08:45 | Outpatient (BNV) | payer MEDICAID, SELFPAY | PROVIDERS: PCP Registered Nurse; Visit Provider Radiology Diagnostic Radiology | DX: Z12.31 Encounter for screening mammogram for malignant neoplasm of breast (principal) | CPT/HCPCS: 77063; 77067 ==

== ENCOUNTER 2023-12-18 11:17 | Outpatient (AMB) | payer MEDICAID, SELFPAY ==
[2023-12-18 11:19] VITALS: BP 144/90; PULSE 65; O2SAT 97; BMI 31.5
--- NOTE | 2023-12-18 11:19 | A.OFFVIS_ITS ---
Intake Vital Signs 12/18/23 11:19 Height 5 ft 4 in Weight 183 lb 4 oz BMI 31.5 BP 144/90 H Blood Pressure Location Lt brachial Position Sitting Pulse 65 Pulse Source Pulse Oximeter Pulse Oximetry (%) 97 Oxygen Delivery Method Room Air Intake Visit Reasons: 6 mnts f/u appt for Sleep - LVM w/address Nursing Program Coordinator Required: Yes Nursing Program Coordinator Name: Isaías [id number] Accompanied by: Sister Allergies No Known Allergies Allergy (Verified 12/18/23 11:24) HPI HPI Comments History of Present Illness Details 63 y/o female patient presents for follo w up of SILVANO on CPAP. Pt's CPAP pressure was changed to 5cmH2O. She feels less pressure and sleep better with the new pressure. Pt reports that she sleeps well, less snoring and daytime sleepiness has improved when she uses CPAP. The CPAP compliance and therapy response (09/06/23-12/14/23) reviewed. The usage days 100% and the average usage hours 9 hrs. The AHI was 1.1/hr. Pt reports new concerns, constant right head pressure, it started about 7 months ago, and now she feels more intense right head pressure. The pressure radiated to her right ear, right neck and and her right facial sinus. She feels her balance off when she has the intense head and ear pressure. The pressure is more intense when she lays down, and has less pressure when she stands up. Denies light or sound sensitivities associated with the head pressure. [facility] Medical History Gastritis GERD (gastroesophageal reflux disease) Arthritis Sleep apnea Essential hypertension Cholecystectomy planned History of mitral valve prolapse Hypertension Mild cognitive disorder Carpal tunnel syndrome Spondylosis PTSD (post-traumatic stress disorder) Sciatica Anxiety Depression Diabetes Surgical History History of carpal tunnel release of both wrists History of esophagogastroduodenoscopy (EGD) H/O colonoscopy H/O: hysterectomy Family History Father Cardiomyopathy Mother Bone cancer Brother Atherosclerotic heart disease Social History Household Members: Family Alcohol intake: never Patient Tobacco Use Status: Never used Tobacco Review of Systems Const All systems reviewed & are unremarkable except as noted in HPI and below ENT Reports Normal hearing present Neuro Reports Normal hearing present Physical Exam Vital Signs: Last Vital Signs Pulse 65 12/18/23 11:19 BP 144/90 H 12/18/23 11:19 Pulse Ox 97 12/18/23 11:19 Oxygen Delivery Method Room Air 12/18/23 11:19 BMI result Body Mass Index 31.5 Const General: cooperative Nutritional Appearance: obese Orientation/consciousness: patient oriented x3 Limitations: language barrier Neck Neck: Yes full ROM and Yes supple Resp Effort & Inspection: normal respiratory effort and able to speak in complete sentences Neuro General: patient oriented x3 Cranial nerves: Yes Bilaterally intact EOM present, Yes Normal facial strength present, Yes Midline tongue present, Yes Symmetric palate elevation present, Yes Normal hearing present, Yes Ability to bilaterally rotate head present and Yes Ability to bilaterally elevate shoulders present Cognition (Neuro): normal cognition Gait exam (Neuro): Normal gait present Motor exam (neuro): 5/5 motor strength present throughout, Pronator motor function not present and no tremor noted Psych Appearance: grossly normal Mental Status: mental status grossly normal Speech and movement: Normal speech and movement present Affect: normal affect Attitude: cooperative Assessment & Plan Assessment & Plan (1) Obstructive sleep apnea: Comment: Severe degree of sleep apnea. The AHI was 27/hr and oxygen paul was 81% Code(s): G47.33 - Obstructive sleep apnea (adult) (pediatric) (2) Pressure in head: Code(s): R51.9 - Headache, unspecified Plan Continue to use CPAP at 5cmH2O as patient experiences good clinical effects. Advised patient to undergo brain MRI to assess increased head pressure and pain. Advised patient to try magnesium 400 mg qHS for neck pain and headache prevention. Refer patient to ENT to assess ear and sinus pressure with feeling off balance. Orders: Orders MR head/brain wo con Today R51.9 - Headache, unspecified Medications: New magnesium oxide 400 mg PO BEDTIME 30 tabs 3RF 30 days Coding Level of Care Code Est Pt Level 4 (40281) Diagnoses Obstructive sleep apnea G47.33 Pressure in head R51.9
== END 2023-12-18 12:03 | disposition home or self-care (01) ==
PROVIDERS: Visit Provider Nurse Practitioner Family
DX: G47.33 Obstructive sleep apnea (adult) (pediatric) (principal); R51.9 Headache, unspecified
CPT/HCPCS: 99214

== ENCOUNTER → 2023-12-18 11:17 | Outpatient (BNVA) | payer MEDICAID, SELFPAY | PROVIDERS: Visit Provider Nurse Practitioner Family | DX: G47.33 Obstructive sleep apnea (adult) (pediatric) (principal); R51.9 Headache, unspecified; Z99.89 Dependence on other enabling machines and devices | CPT/HCPCS: 99212 ==

== ENCOUNTER 2024-03-10 01:05 | Emergency (ER) | payer MEDICAID, SELFPAY ==
--- NOTE | 2024-03-10 | ECG_ITS ---
Test Reason : htn Blood Pressure : / mmHG Vent. Rate : 060 BPM Atrial Rate : 060 BPM P-R Int : 128 ms QRS Dur : 090 ms QT Int : 394 ms P-R-T Axes : 057 -25 -41 degrees QTc Int : 394 ms Normal sinus rhythm Minimal voltage criteria for LVH, may be normal variant ( Tone product ) Nonspecific ST and T wave abnormality Abnormal ECG When compared with ECG of 03-JAN-2022 05:39, No significant change was found Referred By: Generic ED Physician Electronically Signed By:OUSMANE GILL
[2024-03-10 01:10] VITALS: BP 149/96; PULSE 65; O2SAT 98
[2024-03-10 01:12] VITALS: BP 155/86; PULSE 67; RESP 18; TEMP 36.8; O2SAT 99; BMI 39.2
[2024-03-10 01:44] LABS: MANUAL DIFF FLAG NO
[2024-03-10 01:47] LABS: Basophils Percent Auto 0.4 % (0-2); Eosinophils Absolute Auto 0.1 X10*3/uL (0.0-0.4); Eosinophils Percent Auto 1.7 % (0-4); Hematocrit 39.3 % (37.0-47.0); Hemoglobin 12.8 g/dl (12.0-16.0); Imm Gran Abs Auto 0.01 X10*3/uL (0.00-0.03); Imm Gran Pct Auto 0.1 % (0.0-0.4); Lymphocytes Absolute Auto 2.1 X10*3/uL (1.2-4.9); Lymphocytes Percent Auto 25.2 % (20-40); Mean Corpuscular HGB Conc 32.6 g/dl (31.0-35.0); Mean Corpuscular Hemoglobin 29.9 pg (27.0-33.0); Mean Corpuscular Volume 91.8 fL (80.0-98.0); Mean Platelet Volume 12.8 fL (9.4-12.3); Monocytes Absolute Auto 0.7 X10*3/uL (0.1-1.2); Monocytes Percent Auto 8.3 % (2-11); Neutrophils Absolute Auto 5.4 x10*3/uL (2.0-8.3); Neutrophils Percent Auto 64.3 % (45-73); Platelet Count 165 X10*3/uL (160-400); Red Blood Count 4.28 X10*6/uL (4.20-5.50); Red Cell Distribution Width 14.4 % (11.0-16.0); White Blood Count 8.4 X10*3/uL (4.8-10.8)
[2024-03-10 02:02] LABS: Alanine Aminotransferase 22 U/L (0-31); Albumin Level 3.7 g/dL (3.5-5.0); Alkaline Phosphatase 71 U/L (39-117); Anion Gap 10 (12-20); Aspartate Amino Transferase 27 U/L (5-31); Bilirubin Total 0.3 mg/dL (0.0-1.0); Blood Urea Nitrogen 23 mg/dL (9-16); Carbon Dioxide 27 mmol/L (22-29); Chloride 107 mmol/L (96-108); Creatinine Clr Calc Pharmacy 57.2; Estimated Glomerular Filt Rate > 60; Glucose Random 124 mg/dL (60-115); Potassium 3.3 mmol/L (3.3-5.1); Sodium 141 mmol/L (135-145); Total Protein 7.1 g/dL (6.5-8.0)
[2024-03-10 02:14] LABS: Troponin-I High Sensitivity < 2.7 ng/L (<3.5-17.0)
[2024-03-10 06:01] VITALS: BP 136/74; PULSE 66; RESP 16; TEMP 36.7; O2SAT 94
--- NOTE | 2024-03-10 07:17 | ED.GENADULT ---
HPI - General Adult General Chief complaint: General Medical Stated complaint: HTN Time Seen by Provider: 03/10/24 07:16 Source: patient and family (Daughter) Mode of arrival: EMS Limitations: language barrier (French speaking only, field attendant used) History of Present Illness ED Provider: Dr. Christopher Escamilla HPI narrative: 63-year-old female with a history of hypertension, diabetes mellitus and sleep apnea who presents emergency department for evaluation of left arm numbness, chest heaviness, bilateral lower extremity numbness and elevated blood pressure. The patient states that she sets her alarm for midnight since she has to give her cat medications. When she woke up she was not feeling well. She states that she had a tightness in her chest, numbness in her left arm and numbness in both legs. She also felt like her heart was beating rapidly. She took her blood pressure and her systolic blood pressure was 220 which is fine for her baseline. She states that her systolic blood pressures usually run in the 120-140 range. Patient states that she has been under increased stress secondary to her cats illness. She was told recently that she will have to make a decision on whether to put the cat down due to the cats chronic illness and this has been very stressful. She has been compliant with her medications. Related Data Home Medications ?Medication ?Instructions ?Recorded ?Confirmed cholecalciferol (vitamin D3) 25 25 mcg PO DAILY 05/22/21 03/13/23 mcg (1,000 unit) chewable tablet rosuvastatin 10 mg tablet 10 mg PO DAILY 05/22/21 03/13/23 sertraline 100 mg tablet 100 mg PO DAILY 05/22/21 03/13/23 metoprolol succinate 25 mg 25 mg PO DAILY 07/03/22 03/18/23 tablet,extended release 24 hr amitriptyline 25 mg tablet 25 mg PO BEDTIME 01/09/23 03/13/23 aspirin 81 mg tablet,delayed 81 mg PO DAILY 01/09/23 03/13/23 release (Adult Low Dose Aspirin) chlorthalidone 50 mg tablet 50 mg PO DAILY 01/09/23 03/13/23 clonazepam 1 mg tablet 1 mg PO BID 01/09/23 03/13/23 loratadine 10 mg tablet (Claritin) 10 mg PO DAILY 01/09/23 03/13/23 olmesartan 20 mg tablet 20 mg PO DAILY 01/09/23 03/13/23 quetiapine 150 mg tablet,extended 150 mg PO BEDTIME 01/09/23 03/13/23 release 24 hr calcium carbonate 600 mg-vitamin 1 tab PO DAILY 03/18/23 03/18/23 D3 5 mcg (200 unit) tablet ketotifen fumarate 0.025 % (0.035 1 drp ophthalmic (eye) BID PRN 03/18/23 03/18/23 %) eye drops itching of eye lidocaine 4 % topical gel 1 appl topical QD-TID PRN Muscle 03/18/23 03/18/23 Pain lisinopril 10 mg tablet 10 mg PO DAILY 03/18/23 03/18/23 peg 400-propylene glycol (PF) 0.4 1 drp ophthalmic (eye) BID PRN Eye 03/18/23 03/18/23 %-0.3 % eye drops in a dropperette Irritation (Systane (PF)) gabapentin 100 mg capsule 300 mg PO BID 12/18/23 Previous Rx's ?Medication ?Instructions ?Recorded lidocaine 4 % topical patch 1 patch topical DAILY PRN pain #10 12/23/21 ea magnesium oxide 400 mg PO BEDTIME 30 days #30 tabs 12/18/23 omeprazole 20 mg capsule,delayed 20 mg PO DAILY #90 caps 01/20/24 release Allergies Allergy/AdvReac Type Severity Reaction Status Date / Time No Known Allergies Allergy Verified 03/10/24 01:18 Review of Systems Review of Systems: Yes all other systems are reviewed and are negative [facility] Past Medical History [facility] Narrative: Social history: Patient denies tobacco use. She occasionally drinks alcohol. She denies drug use. Medical History Gastritis GERD (gastroesophageal reflux disease) Arthritis Sleep apnea Essential hypertension Cholecystectomy planned History of mitral valve prolapse Hypertension Mild cognitive disorder Carpal tunnel syndrome Spondylosis PTSD (post-traumatic stress disorder) Sciatica Anxiety Depression Diabetes Surgical History History of carpal tunnel release of both wrists History of esophagogastroduodenoscopy (EGD) H/O colonoscopy H/O: hysterectomy Family History Family History Father Cardiomyopathy Mother Bone cancer Brother Atherosclerotic heart disease Social History Social History Household Members: Family Alcohol intake: never Patient Tobacco Use Status: Never used Tobacco Smoked in Last 30 Days: No Use of substances other than those prescribed or required for medical reasons: No Advance Directives: Yes Advance Directives Information Provided: No Advance Directives on File: No Do you have a plan to hurt others: No Plan Patient : No Physical Exam ED Vital Signs: Vital Signs - 24 hr 03/10/24 01:12 03/10/24 06:01 Temperature 98.2 F 98.0 F Pulse Rate 67 66 Respiratory Rate 18 16 Blood Pressure 155/86 H 136/74 Pulse Oximetry 99 94 Oxygen Delivery Method Room Air Room Air BMI result Body Mass Index 39.2 Patient's blood pressure on initial presentation was 155/86 and 06:01 hours the blood pressure was 136/74 which improved without treatment. Vital signs were otherwise unremarkable Exam: General: Awake, alert in no distress Head: Normocephalic, atraumatic EENT: PERRL, Lids normal, sclera normal, conjunctiva normal, nose normal , ears normal, throat without erythema or exudates Neck: Supple, no adenopathy Lung: breath sounds symmetric, no wheezing, rales or rhonchi Chest: symmetric movement, nontender Heart: regular rate and rhythm, normal S1, S2 no murmurs or rubs Abdomen: soft, non-tender, nondistended, normal bowel sounds Back: no vertebral tenderness, no CVAT Extremities: no deformities, moves all extremities symmetrically Neuro: Awake, alert, oriented, normal speech, cranial nerves intact, moves all extremities symmetrically Psych: Pleasant, cooperative Medical Decision Making Medical Decision Making MDM Narrative: 63-year-old female with a history of hypertension, diabetes mellitus and sleep apnea who presents emergency department for evaluation of left arm numbness, chest heaviness, bilateral lower extremity numbness and elevated systolic blood pressure 220. Patient has been compliant with her medications, she has been under increased stress secondary to her cats illness. She states she did feel anxious and depressed when she woke up this morning to give her cat medications. Patient's vital signs did reveal an elevated systolic blood pressure of 156 but this did improve without treatment. Had physical examination was unremarkable Differential diagnosis: ?Includes but is not limited to essential hypertension, anxiety/depression, myocardial infarction, myocardial ischemia, kidney disease, stroke, electrolyte abnormalities, anemia Following evaluation was ordered: CBC, BMP, troponin, 12 EKG, O2 saturation and media monitor Course: 07:20 My independent interpretation patient's laboratory evaluation as follows: Normal CBC. Normal BUN and creatinine. Elevated glucose 126. High sensitive troponin I was below detectable limits Patient's 12 EKG was unremarkable Patient's blood pressure did improve without treatment her symptoms did resolve. Patient's hypertension is most likely secondary to stress and anxiety. I did discuss this with the patient and the patient's daughter. The patient is to take her blood pressure 3 times a week for the next 2 weeks in the mornings when she is feeling well. She is then to follow-up with her PCP to discuss further management of her hypertension. She was given printed and verbal instructions and discharged home. Admission/Observation Consideration of admission/observation: Escalation of care including admission/observation considered Lab Data MDM Lab Attestation statement: I reviewed the patient's lab results. 03/10/24 01:39 03/10/24 01:39 Labs: Lab Results 03/10/24 Range/Units 01:39 WBC 8.4 (4.8-10.8) X10*3/uL RBC 4.28 (4.20-5.50) X10*6/uL Hgb 12.8 (12.0-16.0) g/dl Hct 39.3 (37.0-47.0) % MCV 91.8 (80.0-98.0) fL MCH 29.9 (27.0-33.0) pg MCHC 32.6 (31.0-35.0) g/dl RDW 14.4 (11.0-16.0) % Plt Count 165 (160-400) X10*3/uL MPV 12.8 H (9.4-12.3) fL Immature Gran % (Auto) 0.1 (0.0-0.4) % Neut % (Auto) 64.3 (45-73) % Lymph % (Auto) 25.2 (20-40) % [place] % (Auto) 8.3 (2-11) % Eos % (Auto) 1.7 (0-4) % Baso % (Auto) 0.4 (0-2) % Lymph # (Auto) 2.1 (1.2-4.9) X10*3/uL [place] # (Auto) 0.7 (0.1-1.2) X10*3/uL Eos # (Auto) 0.1 (0.0-0.4) X10*3/uL Baso # (Auto) 0.0 (0.0-0.2) X10*3/uL Abs Immat Gran (auto) 0.01 (0.00-0.03) X10*3/uL Absolute Neuts (auto) 5.4 (2.0-8.3) x10*3/uL Absolute Nucleated RBC 0.000 (0.0-0.012) X10*3/uL Nucleated RBC % (auto) 0.0 (0.0-0.2) /100WBC Sodium 141 (135-145) mmol/L Potassium 3.3 (3.3-5.1) mmol/L Chloride 107 (96-108) mmol/L Carbon Dioxide 27 (22-29) mmol/L Anion Gap 10 L (12-20) BUN 23 H (9-16) mg/dL Creatinine 0.85 (0.5-1.4) mg/dL Estim Creat Clear Calc 57.2 Estimated GFR > 60 Random Glucose 124 H (60-115) mg/dL Calcium 9.0 (8.4-10.2) mg/dL Total Bilirubin 0.3 (0.0-1.0) mg/dL AST 27 (5-31) U/L ALT 22 (0-31) U/L Alkaline Phosphatase 71 (39-117) U/L Troponin I High Sens < 2.7 (<3.5-17.0) ng/L Total Protein 7.1 (6.5-8.0) g/dL Albumin 3.7 (3.5-5.0) g/dL Independent Interpretation I performed an independent interpretation of an: EKG Interpretation: My independent interpretation patient's 12 EKG done at 01:28 hours is as follows: Normal sinus rhythm rate of 60, normal NH interval, QRS duration and QTC interval, no ST segment elevation, no ST segment depression, inverted T-wave in 3, AVF, V1, V3 through V5, no PACs, no PACs. Compared to EKG dated 01/03/2022 the inverted T-waves in 3, AVF, V3 through V5 are old. Independent Historian Clinical information obtained from an independent historian. History obtained from or confirmed by: Other (Daughter) Chronic Conditions Patient?s care impacted by: Diabetes and Hypertension Discharge Plan Discharge Clinical Impression: Essential (primary) hypertension, Anxiety Patient Disposition: Home, Self-Care Additional Instructions: Your evaluation today included a complete blood count, basic metabolic panel, high sensitive troponin I and an EKG. All of these tests were normal which is reassuring. Your high blood pressure was most likely caused by stress and anxiety. Continue taking blood pressure medications as prescribed by your doctor High blood pressure instructions: The reason to check your blood pressure at home is to give your doctor an idea of what your blood pressure does when you are not in the doctor's office. Take your blood pressure in the mornings, Mondays , Wednesdays and Fridays and then write down these readings to discuss them with your doctor at your next visit. Do this for 2 weeks. Then follow-up with your doctor in 2 weeks. If your doctor thinks that your blood pressures are too high then they will either increase your high blood pressure medications or start you on a another blood pressure medication. If your doctor changes your blood pressure medications it will take anywhere from 2-6 week before these medications work to reduce your blood pressure. Follow-up with your doctor to discuss your blood pressure readings in 2 weeks Please return to the emergency department if your symptoms get worse or if you develop any new symptoms that are concerning to you. Prescriptions: No Action omeprazole 20 mg capsule,delayed release(DR/EC) 20 mg PO DAILY Qty: 90 1RF lidocaine 4 % adhesive patch,medicated 1 patch topical DAILY PRN (Reason: pain) Qty: 10 0RF Rx Instructions: may leave on for up to 12 hrs lidocaine 4 % Gel 1 appl TOPICAL QD-TID PRN (Reason: Muscle Pain) Systane (PF) 0.4-0.3 % Dropperette 1 drp OPHTHALMIC (EYE) BID PRN (Reason: Eye Irritation) ketotifen fumarate 0.025 % (0.035 %) drops 1 drp ophthalmic (eye) BID PRN (Reason: itching of eye) lisinopril 10 mg tablet 10 mg PO DAILY calcium carbonate-vitamin D3 [Calcium + D] 600 mg-5 mcg (200 unit) Tablet 1 tab PO DAILY cholecalciferol (vitamin D3) 25 mcg (1,000 unit) tablet,chewable 25 mcg PO DAILY rosuvastatin 10 mg tablet 10 mg PO DAILY sertraline 100 mg tablet 100 mg PO DAILY metoprolol succinate 25 mg tablet extended release 24 hr 25 mg PO DAILY gabapentin 100 mg capsule 300 mg PO BID amitriptyline 25 mg tablet 25 mg PO BEDTIME aspirin [Adult Low Dose Aspirin] 81 mg tablet,delayed release (DR/EC) 81 mg PO DAILY chlorthalidone 50 mg tablet 50 mg PO DAILY clonazepam 1 mg tablet 1 mg PO BID loratadine [Claritin] 10 mg tablet 10 mg PO DAILY olmesartan 20 mg tablet 20 mg PO DAILY quetiapine 150 mg tablet extended release 24 hr 150 mg PO BEDTIME magnesium oxide 400 mg magnesium tablet 400 mg PO BEDTIME 30 Days Qty: 30 3RF Print Language: French
[2024-03-10 07:45] VITALS: BP 128/75; PULSE 55; RESP 18; TEMP 36.4; O2SAT 96
[2024-03-10 07:54] VITALS: BP 128/75; PULSE 55; RESP 18; TEMP 36.4; O2SAT 96
== END 2024-03-10 07:55 | disposition home or self-care (01) ==
PROVIDERS: Emergency Provider Emergency Medicine Emergency Medical Services; PCP Student in an Organized Health Care Education/Training Program
DX: I10 Essential (primary) hypertension (principal); F41.9 Anxiety disorder, unspecified; R20.0 Anesthesia of skin; E11.9 Type 2 diabetes mellitus without complications; G47.30 Sleep apnea, unspecified; R07.89 Other chest pain
CPT/HCPCS: 36415; 80053; 84484; 85025; 93005; 99283; 99284

== ENCOUNTER → 2024-03-10 01:28 | Outpatient (BNV) | payer MEDICAID, SELFPAY | PROVIDERS: Emergency Provider Emergency Medicine Emergency Medical Services; PCP Student in an Organized Health Care Education/Training Program; Visit Provider Internal Medicine | DX: R94.31 Abnormal electrocardiogram [ECG] [EKG] (principal) | CPT/HCPCS: 93010 ==

== ENCOUNTER 2024-03-12 08:13 | Outpatient (REF) | payer MEDICAID, SELFPAY ==
--- NOTE | ~2024-03-12 | MR_ITS ---
EXAMINATION: MR BRAIN WITHOUT CONTRAST CLINICAL INFORMATION: Headache COMPARISON: MRI brain on 07/01/2019 TECHNIQUE: MRI of the brain was obtained using routine sequences without contrast. FINDINGS: Ventricles, sulci and cisterns are normal for the patient's age. Several T2 hyperintense focal lesions are seen in the left frontal deep white matter. A transverse shaped T2 hyperintense lesion is seen in posterior border of left lentiform nucleus measuring 0.6 x 0.3 cm in size. No focal brainstem or cerebellar lesions with abnormal signal can be seen. Diffusion weighted images show no abnormal regional decrease in diffusion. Normal flow voids of major intracerebral blood vessels are seen in the visualized portion. The pituitary gland is not visualized with extension of infundibulum to the floor of sella turcica. Optic chiasm is not displaced. Cerebellar tonsils position is normal. MR/MR head/brain wo con IMPRESSION: 1. Unchanged left frontal deep white matter and posterior left lentiform nucleus T2 hyperintense lesions, better visualized on the current examination. Findings are compatible with ischemic white matter disease due to microangiopathy, focal demyelinating disease or lesions associated with migraine headache. 2. No acute cerebral infarction is seen. 3. No evidence of space occupying mass lesion could be found. 4. No evidence of intracranial hemorrhage.
== END 2024-03-12 08:14 | disposition home or self-care (01) ==
LOC: HO.MRI 08:13
PROVIDERS: PCP Registered Nurse; Visit Provider Nurse Practitioner Family
DX: R51.9 Headache, unspecified (principal)
CPT/HCPCS: 70551

== ENCOUNTER 2024-05-19 10:25 | Outpatient (AMB) | payer MEDICAID, SELFPAY ==
--- NOTE | 2024-05-19 10:27 | MHC.OFFVIS ---
Vital Signs 05/19/24 10:28 Height 4 ft 8 in Weight 185 lb 6 oz BMI 41.6 BP 138/76 Blood Pressure Location Rt brachial Position Sitting Respiration 16 Pulse 71 Pulse Source Pulse Oximeter Pulse Oximetry (%) 98 Oxygen Delivery Method Room Air Intake Visit Reasons: follow up Sleep - Confirmed Intake Note: Pt presents to the office for 6 month follow up for SILVANO. [employer] Required: Yes [employer] Services: [employer] Present [employer] Name: Misti R, MARCELA Allergies No Known Allergies Allergy (Verified 05/19/24 10:28) Medication List - Last Reconciled 05/19/24 by Purvi Armas MD amitriptyline 25 mg PO BEDTIME aspirin (Adult Low Dose Aspirin) 81 mg PO DAILY calcium carbonate-vitamin D3 600 mg-5 mcg (200 unit) 1 tab PO DAILY chlorthalidone 50 mg PO DAILY cholecalciferol (vitamin D3) 25 mcg PO DAILY clonazepam 1 mg PO BID gabapentin 300 mg PO BID ketotifen fumarate 0.025%(0.035%) 1 drp ophthalmic (eye) BID PRN lidocaine 4% 1 patch topical DAILY PRN lidocaine 4% 1 appl topical QD-TID PRN lisinopril 10 mg PO DAILY loratadine (Claritin) 10 mg PO DAILY magnesium oxide 400 mg PO BEDTIME 30 days metoprolol succinate ER 25 mg PO DAILY olmesartan 20 mg PO DAILY omeprazole 20 mg PO DAILY peg 400-propylene glycol (PF) 0.4-0.3 % (Systane (PF)) 1 drp ophthalmic (eye) BID PRN quetiapine ER 150 mg PO BEDTIME rosuvastatin 10 mg PO DAILY sertraline 100 mg PO DAILY HPI Comments Details: 63 y/o female patient presents for follow up of SILVANO on CPAP. Pt's CPAP pressure was changed to [id number] as per patient She feels less pressure and sleep better with the new pressure. Pt reports that she sleeps well, less snoring and daytime sleepiness has improved when she uses CPAP. The CPAP compliance and therapy response (02/07/24-05/06/24) reviewed. No recording from April 17- she has a new CPAP. The usage days 73% and the average usage hours 7hrs. The AHI was 0.9hr. Pt reports new concerns, constant right head pressure, it started about 7 months ago, and now she feels more intense right head pressure. The pressure radiated to her right ear, right neck and and her right facial sinus. She feels her balance off when she has the intense head and ear pressure. The pressure is more intense when she lays down, and has less pressure when she stands up. Denies light or sound sensitivities associated with the head pressure. [facility] Medical History Cervicalgia Gastritis GERD (gastroesophageal reflux disease) Arthritis Sleep apnea Essential hypertension Cholecystectomy planned History of mitral valve prolapse Hypertension Mild cognitive disorder Carpal tunnel syndrome Spondylosis PTSD (post-traumatic stress disorder) Sciatica Anxiety Depression Diabetes Surgical History History of carpal tunnel release of both wrists History of esophagogastroduodenoscopy (EGD) H/O colonoscopy H/O: hysterectomy Family History Father Cardiomyopathy Mother Bone cancer Brother Atherosclerotic heart disease Social History Household Members: Family Alcohol intake: never Patient Tobacco Use Status: Never used Tobacco Review of Systems ENT Reports Normal hearing present Neuro Reports Normal hearing present Physical Exam Vital Signs: Last Vital Signs Pulse 71 05/19/24 10:28 Resp 16 05/19/24 10:28 BP 138/76 05/19/24 10:28 Pulse Ox 98 05/19/24 10:28 Oxygen Delivery Method Room Air 05/19/24 10:28 BMI result Body Mass Index 41.6 Const General: cooperative Nutritional Appearance: obese Orientation/consciousness: patient oriented x3 Limitations: language barrier Neck Neck: Yes full ROM and Yes supple Resp Effort & Inspection: normal respiratory effort and able to speak in complete sentences Neuro Other: Right Neck tightness and pain General: patient oriented x3 Cranial nerves: Yes Bilaterally intact EOM present, Yes Normal facial strength present, Yes Midline tongue present, Yes Symmetric palate elevation present, Yes Normal hearing present, Yes Ability to bilaterally rotate head present and Yes Ability to bilaterally elevate shoulders present Cognition (Neuro): normal cognition Gait exam (Neuro): Normal gait present Motor exam (neuro): 5/5 motor strength present throughout, Pronator motor function not present and no tremor noted Psych Appearance: grossly normal Mental Status: mental status grossly normal Speech and movement: Normal speech and movement present Affect: normal affect Attitude: cooperative Assessment & Plan Assessment & Plan (1) Obstructive sleep apnea: Comment: Severe degree of sleep apnea. The AHI was 27/hr and oxygen paul was 81% Code(s): G47.33 - Obstructive sleep apnea (adult) (pediatric) Category: Medical (2) Pressure in head: Code(s): R51.9 - Headache, unspecified Category: Medical (3) Cervicalgia: Code(s): M54.2 - Cervicalgia Category: Medical Plan Continue to use CPAP at [id number] as patient experiences good clinical effects. MRI brain - nonfocal Continue magnesium 400 mg qHS for neck pain and headache prevention. PT for neck Call [facility] for updated compliance. Orders: Orders PT Evaluation and Treatment Today M54.2 - Cervicalgia Coding Level of Care Code Est Pt Level 4 (78637) Complex EM visit Add On G2211 Diagnoses Obstructive sleep apnea G47.33 Pressure in head R51.9 Cervicalgia M54.2
[2024-05-19 10:28] VITALS: BP 138/76; PULSE 71; RESP 16; O2SAT 98; BMI 41.6
== END 2024-05-19 10:46 | disposition home or self-care (01) ==
PROVIDERS: Referring Provider Student in an Organized Health Care Education/Training Program; Visit Provider Psychiatry & Neurology Neurology
DX: G47.33 Obstructive sleep apnea (adult) (pediatric) (principal); R51.9 Headache, unspecified; M54.2 Cervicalgia
CPT/HCPCS: 99214

== ENCOUNTER → 2024-05-19 10:25 | Outpatient (BNVA) | payer MEDICAID, SELFPAY | PROVIDERS: Visit Provider Psychiatry & Neurology Neurology | DX: G47.33 Obstructive sleep apnea (adult) (pediatric) (principal); M54.2 Cervicalgia; R51.9 Headache, unspecified; Z99.89 Dependence on other enabling machines and devices | CPT/HCPCS: 99212 ==

== ENCOUNTER 2024-06-15 09:52 | Outpatient (REF) | payer MEDICAID, SELFPAY ==
[2024-06-15 11:57] LABS: Hematocrit 42.6 % (37.0-47.0); Hemoglobin 13.2 g/dl (12.0-16.0); Mean Corpuscular Hemoglobin 29.5 pg (27.0-33.0); Mean Corpuscular Volume 95.1 fL (80.0-98.0); Mean Platelet Volume 13.3 fL (9.4-12.3); Platelet Count 164 X10*3/uL (160-400); Red Blood Count 4.48 X10*6/uL (4.20-5.50); Red Cell Distribution Width 14.7 % (11.0-16.0); White Blood Count 6.5 X10*3/uL (4.8-10.8)
[2024-06-15 12:02] LABS: Estimated Average Glucose 126 mg/dL
[2024-06-15 12:12] LABS: Creatinine Urine 78.29 mg/dL; Microalbum/Creatinine Ratio Ur 8.9 ug/mg cr (<30)
[2024-06-15 12:13] LABS: Alanine Aminotransferase 20 U/L (0-31); Albumin Level 3.9 g/dL (3.5-5.0); Alkaline Phosphatase 68 U/L (39-117); Anion Gap 9 (12-20); Aspartate Amino Transferase 23 U/L (5-31); Bilirubin Total 0.3 mg/dL (0.0-1.0); Blood Urea Nitrogen 12 mg/dL (9-16); Calcium 9.1 mg/dL (8.4-10.2); Carbon Dioxide 29 mmol/L (22-29); Chloride 109 mmol/L (96-108); Cholesterol 164 mg/dL (<200); Estimated Glomerular Filt Rate > 60; Glucose Random 89 mg/dL (60-115); HDL Cholesterol 47 mg/dL (>40); Iron 56 mcg/dL (30-160); LDL Cholesterol Calculated 103 mg/dL (<100); Percent Iron Saturation 25 % (15-50); Potassium 4.4 mmol/L (3.3-5.1); Sodium 143 mmol/L (135-145); Total Iron Binding Capacity 221 mcg/dL (228-428); Total Protein 7.6 g/dL (6.5-8.0); Triglycerides 70 mg/dL (<150); Unsaturated Iron Binding 165 ug/dL
[2024-06-15 12:30] LABS: Ferritin 286 ng/mL (10-250); TSH reflex Free T4 1.52 uIU/mL (0.32-4.0); Vitamin D 25-OH Total 25.8 ng/mL (>30)
[2024-06-15 12:33] LABS: HBS Num1 > 1000.00 mIU/mL (0-7.99); HBc Num1 0.11 S/CO (0.00-0.79); HBsAGNum1 0.25 S/CO (0.00-0.99); HIV AB/AG Nonreactive (Nonreactive); HIV Num 1 0.05 S/CO (0.00-0.99); Hepatitis B Core Antibody Nonreactive (Nonreactive); Hepatitis B Surface Antigen Negative (Negative); ~HepC Num1 0.21 S/CO (0.00-0.79); ~Hepatitis B Surface Antibody REACTIVE (Nonreactive); ~Hepatitis C Antibody Nonreactive (Nonreactive)
[2024-06-15 12:44] LABS: Syphilis Screen Nonreactive (Nonreactive)
== END 2024-06-15 09:53 | disposition home or self-care (01) ==
LOC: HO.HHCL 09:52
PROVIDERS: Visit Provider Student in an Organized Health Care Education/Training Program
DX: Z00.00 Encounter for general adult medical examination without abnormal findings (principal)
CPT/HCPCS: 36415; 80053; 80061; 82043; 82306; 82570; 82728; 83036; 83540; 84443; 85027; 86704; 86706; 86780; 86803; 87340; 87389

== ENCOUNTER 2024-08-10 13:26 | Outpatient (REF) | payer MEDICAID, SELFPAY ==
--- NOTE | ~2024-08-10 | MM_ITS ---
EXAMINATION: MM SCREENING DIGITAL BREAST TOMOSYNTHESIS, BILATERAL CLINICAL INFORMATION: Screening. Asymptomatic. COMPARISON: Mammography: Comparison is made with available priors TECHNIQUE: Digital breast mammography with tomosynthesis is performed in both the craniocaudal and mediolateral oblique views along with computer-aided detection (CAD). FINDINGS: There are scattered areas of fibroglandular density (ACR BI-RADS breast composition Category b). Circumscribed oval 5 mm mass upper outer left breast stable dating back to 2011. There are no significant masses, abnormal calcifications, or other abnormalities. MM/MM tomosynthesis screening BI IMPRESSION: No mammographic evidence of malignancy. ASSESSMENT: BI-RADS BI-RADS 2 - Benign Findings RECOMMENDATION: Routine annual mammography screening. 1 year F/U This examination should not preclude the clinical evaluation of a suspicious palpable abnormality. This patient's information was entered into a reminder system with a target due date for their next mammogram. Electronically signed by: Nara Todd DO 08/18/2024 03:58 PM MENG
--- NOTE | ~2024-08-10 | MM_ITS ---
EXAMINATION: BONE DENSITOMETRY CLINICAL INDICATION: Postmenopausal. COMPARISON: This is the patient's baseline examination. TECHNIQUE: Using a [employer] DXA System (software version: 13.1) manufactured by [employer], dual-energy x-ray absorptiometry was performed of the lumbar spine and left hip. The images are of good technical quality. Summary results are attached. FINDINGS: LEFT FEMUR, NECK: BMD 0.851 g/cm2, Z-score -0.3, T-score -1.3, osteopenia. LEFT FEMUR, TOTAL: BMD 0.900 g/cm2, Z-score -0.1, T-score -0.9, normal. AP SPINE L1-L4: BMD 1.137 g/cm2, Z-score 0.6, T-score -0.4, normal. IDENTIFIED RISK FACTORS: Menopause, hysterectomy, bilateral oophorectomy. HISTORY OF FRACTURE: None listed. MEDICATIONS: Calcium supplements or multivitamin, vitamin D. MM/XR DEXA axial skeleton IMPRESSION: 1. DIAGNOSIS: Osteopenia based on the lowest T-score value of -1.3 in the femoral neck applying World Health Organization criteria. 2. 10-YEAR FRACTURE RISK PREDICTION, FRAX: Major osteoporotic fracture (clinical spine, forearm, hip or shoulder) 4.3%. Hip fracture 0.4%. 3. Treatment Recommendations: NOF guidelines recommend consideration for treatment in postmenopausal women and men age 50 and older presenting with the following: -A hip or vertebral (clinical or morphometric) fracture. -T-score less than or equal to -2.5 at the femoral neck or spine after appropriate evaluation to exclude secondary causes. -Low bone mass at the hip or spine and a 10-year fracture probability by FRAX of greater than or equal to 3% for hip fracture or greater than or equal to 20% for major osteoporotic fracture based on the [place] adapted WHO algorithm. 4. Other Recommendations: All treatment decisions require clinical judgment and consideration of individual patient factors, including patient preferences, comorbidities, previous drug use, risk factors not captured in the FRAX model (e.g. frailty, falls, vitamin D deficiency, increased bone turnover, interval significant decline in bone density) and possible under or overestimation of fracture risk by FRAX. Additional medical evaluation for secondary cause of low bone mineral density may be appropriate. FUTURE SCAN RECOMMENDATION: People with diagnosed cases of osteoporosis or at high risk for fracture should have regular bone mineral density tests. For patients eligible for Medicare, routine testing is allowed once every 2 years. The testing frequency can be increased to one year for patients who have rapidly progressing disease, those who are receiving or discontinuing medical therapy to restore bone mass, or have additional risk factors. Electronically signed by: Natalia Hendrix MD 08/11/2024 12:22 PM MENG
== END 2024-08-10 13:27 | disposition home or self-care (01) ==
LOC: HO.MAMMO 13:26
PROVIDERS: PCP Student in an Organized Health Care Education/Training Program; Visit Provider Student in an Organized Health Care Education/Training Program
DX: Z12.31 Encounter for screening mammogram for malignant neoplasm of breast (principal); Z13.820 Encounter for screening for osteoporosis; Z78.0 Asymptomatic menopausal state
CPT/HCPCS: 77063; 77067; 77080

== ENCOUNTER → 2024-08-10 13:45 | Outpatient (BNV) | payer MEDICAID, SELFPAY | PROVIDERS: PCP Student in an Organized Health Care Education/Training Program; Visit Provider Internal Medicine | DX: Z12.31 Encounter for screening mammogram for malignant neoplasm of breast (principal) | CPT/HCPCS: 77063; 77067 ==

== ENCOUNTER 2024-12-02 12:19 | Outpatient (AMB) | payer MEDICAID, SELFPAY ==
[2024-12-02 12:37] VITALS: BP 124/88; PULSE 68; O2SAT 97; BMI 42.4
--- NOTE | 2024-12-02 12:37 | MHC.OFFVIS ---
Vital Signs 12/02/24 12:37 Height 4 ft 8 in Weight 189 lb BMI 42.4 BP 124/88 Blood Pressure Location Rt brachial Position Sitting Pulse 68 Pulse Source Pulse Oximeter Pulse Oximetry (%) 97 Oxygen Delivery Method Room Air Intake Visit Reasons: 6 mon follow up Intake Note: Patient presents for follow up SILVANO most recent compliance from 04/15/24 scanned into patient's chart. central scheduling reached out for PT appointment unable to contact patient. Allergies No Known Allergies Allergy (Verified 12/02/24 12:40) HPI Comments Details: 64 y/o female patient presents for follow up of SILVANO on CPAP. she is compliant and uses it everyday . she sleep better and her daytime symptoms improved. Pt's CPAP pressure is [id number] as per patient She feels less pressure and sleeps better with the new pressure. Pt reports that she sleeps well, less snoring and daytime sleepiness has improved when she uses CPAP. Compliance report was not available . Donnie neck and head pain has decreased. she was unable to do PT PFSH Medical History Cervicalgia Gastritis GERD (gastroesophageal reflux disease) Arthritis Sleep apnea Essential hypertension Cholecystectomy planned History of mitral valve prolapse Hypertension Mild cognitive disorder Carpal tunnel syndrome Spondylosis PTSD (post-traumatic stress disorder) Sciatica Anxiety Depression Diabetes Surgical History History of carpal tunnel release of both wrists History of esophagogastroduodenoscopy (EGD) H/O colonoscopy H/O: hysterectomy Family History Father Cardiomyopathy Mother Bone cancer Brother Atherosclerotic heart disease Social History Household Members: Family Alcohol intake: never Patient Tobacco Use Status: Never used Tobacco Physical Exam Vital Signs: Last Vital Signs Pulse 68 12/02/24 12:37 BP 124/88 12/02/24 12:37 Pulse Ox 97 12/02/24 12:37 Oxygen Delivery Method Room Air 12/02/24 12:37 BMI result Body Mass Index 42.4 Const General: cooperative Nutritional Appearance: obese Orientation/consciousness: patient oriented x3 Limitations: language barrier Neck Neck: Yes full ROM and Yes supple Resp Effort & Inspection: normal respiratory effort and able to speak in complete sentences Neuro Other: Right Neck tightness and pain General: patient oriented x3 Cognition (Neuro): normal cognition Gait exam (Neuro): Normal gait present Motor exam (neuro): 5/5 motor strength present throughout, Pronator motor function not present and no tremor noted Psych Appearance: grossly normal Mental Status: mental status grossly normal Speech and movement: Normal speech and movement present Affect: normal affect Attitude: cooperative Assessment & Plan Assessment & Plan (1) Obstructive sleep apnea: Comment: Severe degree of sleep apnea. The AHI was 27/hr and oxygen paul was 81% Code(s): G47.33 - Obstructive sleep apnea (adult) (pediatric) Category: Medical (2) Pressure in head: Code(s): R51.9 - Headache, unspecified Category: Medical (3) Cervicalgia: Code(s): M54.2 - Cervicalgia Category: Medical Plan Continue to use CPAP at [id number] as patient experiences good clinical effects. MRI brain - nonfocal Continue magnesium 400 mg qHS for neck pain and headache prevention. PT for neck Call [facility] for updated compliance. Orders: Orders PT Evaluation and Treatment Today M54.2 - Cervicalgia Coding Level of Care Code Est Pt Level 4 (84768) Complex EM visit Add On G2211 Diagnoses Obstructive sleep apnea G47.33 Pressure in head R51.9 Cervicalgia M54.2
--- OUTSIDE RECORDS SUMMARY | 2024-12-02 14:50 | XMS_ITS | Encounter Summary ---
Author Organization [employer] Address [address] [place] [address] 7 [place] [address] Care Team Providers Care Sprinkler Irrigation Equipment Mechanic Name Role Phone Cinthya Zarate MD Primary Care Pro vider Reason for Visit * Reason Comments Med Refill Encounter Details Date Type Department Care Team ([facility] st Contact Info) Description 11/19/2024 Refill [facility] [address] [place], [place] [phone] Cinthya Zarate MD [address] [place], [place] [phone] Essential hypertension Social History Tobacco Use Types Packs/Day Years Used Date Smoking Tobacco: Never Smokeless Tobacco: Never Alcohol Use Standard Drinks/Week Comments Never 0 (1 standard drink = 0.6 oz pur e alcohol) Depression Answer Date Recorded Patient Health Questionnaire-9 Score 19 05/25/2024 Patient Health Questionnaire-9 Score 19 05/25/2024 Last PHQ-9: Questionnaire Data Not on file 0 05/25/2024 Housing Stability Answer Date Recorded What is your housing situation today? I have jayson saldaña 05/07/[address] you li ve. Do you have problems with any of the following? None of the above 05/07/2024 Food Insecurity Answer Date Recorded Within the past 12 months, y ou worried that your food would run out before you got money to buy more: Never True 05/07/2024 Within the past 12 months,th e food you bought just didn't last and you didn't have enough money to get more: Never True 05/2024 Transportation Answer Date Recorded In the past 12 months, has l ack of transportation kept you from medical appts, meetings, work or from getting things needed for daily living? No 05/07/2024 Utilities Answer Date Recorded In the past 12 months, has t he electric, gas, oil or water company threatened to shut off services in your home? No 05/07/2024 Depression Answer Date Recorded Patient Health Questionnaire-2 Score 6 05/25/2024 Internet Access Answer Date Recorded Internet Access Q1 Yes 05/31/2024 Internet Access Q2 Not on file 05/31/2024 Comments No Sex and Gender Information Value Date Recorded Sex Assigned at Female 07/29/2022 10:16 AM EDT Legal Sex Female 10:16 AM EDT Gender Identity Female 07/29/2022 10:16 AM EDT Sexual Orientation Straight 05/25/2024 10 :14 AM EDT documented as of this encounter Plan of Treatment Upcoming Encounters Date Type Department Care Team (Late st Contact Info) Description 02/16/2025 10:00 AM EDT Office Visit [facility] [address] [place] [phone] Cinthya Zarate MD [address] [place] [phone] documented as of this encounter Visit Diagnoses Diagnosis Essential hypertension Unspecified essential hypertension documented in this encounter Additional Health Concerns Assessment Noted Time PHQ-9 Depression Total Score: 19 024 10:09 AM EDT documented as of this encounter Care Teams Sprinkler Irrigation Equipment Mechanic Relationship Specialty Start Date End Date Cinthya Zarate MD [address] [place] [phone] PCP - General Internal Medicine 06/26/23 documented as of this encounter
--- OUTSIDE RECORDS SUMMARY | 2024-12-02 14:50 | XMS_ITS | Encounter Summary ---
Author Organization [employer] Address [address] [facility] 7 [place] [address] Care Team Providers Care Field Support Specialist Name Role Phone Cinthya Zarate MD Primary Care Pro vider Reason for Visit * Reason Onset Date Comments May recall 11/19/2024 Encounter Details Date Type Department Care Team ([facility] st Contact Info) Description 11/19/2024 Telephone [facility] [address] [place], [place] [phone] Cinthya Zarate MD [address] [place], [place] [phone] May recall Social History Tobacco Use Types Packs/Day Years [...] AM EDT documented as of this encounter Miscellaneous Notes * Telephone Encounter - Adina Mccarty [place] - 11/19/2024 1:40 PM EST Telephone call to patient to schedule the following recall: Visit type: Office visit Appointment notes: BP, weight, A1C Patient agree to appointment on 02/16/25 at 10 AM with Toby. documented in this encounter Plan of Treatment Upcoming Encounters Date Type Department Care Team (Late st Contact Info) Description 02/16/2025 10:00 AM EDT Office Visit [facility] [address] [place] [phone] Cinthya Zarate MD [address] [place] [phone] documented as of this encounter Visit Diagnoses Not on filedocumented in this encounter Additional Health Concerns Assessment Noted Time PHQ-9 Depression Total Score: 19 024 10:09 AM EDT documented as of this encounter Care Teams Field Support Specialist Relationship Specialty Start Date End Date Cinthya Zarate MD [address] [place] [phone] PCP - General Internal Medicine 06/26/23 documented as of this encounter
--- OUTSIDE RECORDS SUMMARY | 2024-12-02 14:50 | XMS_ITS | Encounter Summary ---
Author Organization [employer] Address [address] [facility] 7 [place] [address] Care Team Providers Care Director Of Rehabilitative Services Name Role Phone Cinthya Zarate MD Primary Care Pro vider Reason for Visit * Reason Comments Med Refill Encounter Details Date Type Department Care Team ([facility] st Contact Info) Description 10/01/2024 Refill [facility] [address] [place], [place] [phone] Cinthya Zarate MD [address] [place], [place] [phone] Acute right-sided low back pain with right-sided sciatica Social History Tobacco Use Types Packs/Day Years [...] your housing situation today? I have jayson sing 05/07/[address] you li [...] Description 02/16/2025 10:00 AM EDT Office Visit [facility] [address] [place] [address] Cinthya Zarate MD [address] [place] [address] documented as of this encounter Visit Diagnoses Diagnosis Acute right-sided low back pain with right-sided sciatica documented in this encounter Additional Health Concerns Assessment Noted Time PHQ-9 Depression Total Score: 19 024 10:09 AM EDT documented as of this encounter Care Teams Director Of Rehabilitative Services Relationship Specialty Start Date End Date Cinthya Zarate MD [address] [place] [phone] PCP - General Internal Medicine 06/26/23 documented as of this encounter
--- OUTSIDE RECORDS SUMMARY | 2024-12-02 14:50 | XMS_ITS | Encounter Summary ---
Author Organization [employer] Address [address] [place] [address] 7 [place] [address] Care Team Providers Care Diamond Powder Technician Name Role Phone Cinthya Zarate MD Primary Care Pro vider Encounter Details Date Type Department Care Team (Late st Contact Info) Description 01/22/2024 Telephone [facility] [address] [place], [place] [phone] Cinthya Zarate MD [address] [place], [place] [phone] Social History Tobacco Use Types Packs/Day Years Used Date Smoking Tobacco: Never Smokeless Tobacco: Never Alcohol Use Standard Drinks/Week Comments Never 0 (1 standard drink = 0.6 oz pur e alcohol) Depression Answer Date Recorded Patient Health Questionnaire-9 Score 11 02/19/2023 Housing Stability Answer Date Recorded What is your housing situation today? I have jayson piotr 07/31/[address] you li ve. Do you have problems with any of the following? None of the above 07/31/2023 Food Insecurity Answer Date Recorded Within the past 12 months, y ou worried that your food would run out before you got money to buy more: Never True 07/31/2023 Within the past 12 months,th e food you bought just didn't last and you didn't have enough money to get more: Never True 10/2022 Transportation Answer Date Recorded In the past 12 months, has l ack of transportation kept you from medical appts, meetings, work or from getting things needed for daily living? No 07/31/2023 Utilities Answer Date Recorded In the past 12 months, has t he electric, gas, oil or water [employer] threatened to shut off services in your home? No 07/31/2023 Depression Answer Date Recorded Patient Health Questionnaire-2 Score 3 02/19/2023 Comments No Sex and Gender Information Value [...] Description 02/16/2025 10:00 AM EDT Office Visit [facility] [address] [place] [phone] Cinthya Zarate MD [address] [place] [address] documented as of this encounter Visit Diagnoses Not on filedocumented in this encounter Additional Health Concerns Assessment Noted Time PHQ-9 Depression Total Score: 11 023 10:13 AM EDT documented as of this encounter Care Teams Diamond Powder Technician Relationship Specialty Start Date End Date Cinthya Zarate MD [address] [place] [id number] PCP - General Internal Medicine 06/26/23 documented as of this encounter
--- OUTSIDE RECORDS SUMMARY | 2024-12-02 14:50 | XMS_ITS | Referral Summary ---
Author Organization [facility] Address [address] [place] [address] Care Team Providers Care Maintenance And Operations Supervisor Name Role Phone Rosalinda Levine Primary Care Provider [phone] Allergies No known active allergies Medications lidocaine-menth ol 4-1 % gel by Topical (top) route. Active amitriptyline (ELAVIL) 25 mg tablet Take 25 mg by mouth nightly. Active aspirin 81 mg EC tablet Take 81 mg by mouth once a day. Active calcium carbonate-vitam in D3 600 mg-10 mcg (400 unit) per tablet Take 1 tablet by mouth once a day. Active chlorthalidone (HYGROTEN) 25 mg tablet Take 50 mg by mouth once a day. Active gabapentin (NEURONTIN) 100 mg capsule Take 100 mg by mouth 3 times a day. Take 4 capsules twice a day for nerve pain. (Total daily dose is 800 mg) Active rosuvastatin (CRESTOR) 10 mg tablet Take 10 mg by mouth once a day. Active clonazePAM (KlonoPIN) 1 mg tablet Take 1 mg by mouth 2 times a day. Active lidocaine (LIDODERM) 5% patch Apply 1 patch topically to the affected area once a day. Right foot bone spur pain Active metoprolol succinate XL (TOPROL XL) 25 mg tablet Take 25 mg by mouth once a day. Active QUEtiapine (SEROquel) 200 mg tablet Take 150 mg by mouth nightly. Active vitamin D3 25 mcg (1,000 unit) capsule Take 1 capsule by mouth once a day. Active lisinopriL (PRINIVIL,ZESTR IL) 10 mg tablet Take 10 mg by mouth once a day. Active sertraline (ZOLOFT) 100 mg tablet Take 100 mg by mouth once a day. Active zolpidem (AMBIEN) 10 mg tablet Take 10 mg by mouth nightly as needed for sleep. Active Active Problems Problem Noted Date Diagnosed Date Numbness 02/26/2022 Memory difficulties 12/27/2021 Confusion 12/27/2021 Social History Tobacco Use Types Packs/Day Years Used Date Smoking Tobacco: Never Assessed Comments Unknown Sex and Gender Information Value Date Recorded Sex Assigned at Not on file Legal Sex Female 4:52 PM EST Gender Identity Not on file Sexual Orientation Not on file Last Filed Vital Signs Vital Sign Reading Time Taken Comments Blood Pressure 139/86 02/26/2022 3:30 PM EDT Pulse 63 02/26/2022 3:30 PM EDT Temperature - - Respiratory Rate - - Oxygen Saturation 100% 12/27/2021 3:19 PM EDT Inhaled Oxygen Concentration - - Weight 78.2 kg (172 lb 8 oz) 02/26/2022 3:30 PM EDT Height 152.4 cm (5') 12/27/2021 3:19 PM EDT Body Mass Index 33.69 12/27/2021 3:19 PM EDT Plan of Treatment Not on file Insurance [employer] [id number] [facility] Care Teams Maintenance And Operations Supervisor Relationship Specialty Start Date End Date [email or web address] [address] [place] [phone] PCP - General 09/26/21
--- OUTSIDE RECORDS SUMMARY | 2024-12-02 14:50 | XMS_ITS | Encounter Summary ---
Author Organization [employer] Address [address] [facility] 7 [place] [address] Care Team Providers Care Offshoring Manager Name Role Phone Cinthya Zarate MD Primary Care Pro vider Reason for Visit * Reason Comments Med Refill Encounter Details Date Type Department Care Team ([facility] st Contact Info) Description 11/09/2023 Refill [facility] [address] [place], [place] [phone] Cinthya Zarate MD [address] [place] [address] Essential hypertension Social History Tobacco Use Types Packs/Day Years Used Date Smoking Tobacco: Never Smokeless Tobacco: Never Alcohol Use Standard Drinks/Week Comments Never 0 (1 standard drink = 0.6 oz pur e alcohol) Depression Answer Date Recorded Patient Health Questionnaire-9 Score 11 02/19/2023 Housing Stability Answer Date Recorded What is your housing situation today? I have jaysonluis saldaña 07/31/[address] you li [...] Description 02/16/2025 10:00 AM EDT Office Visit [facility] [address] [place] [phone] Cinthya Zarate MD [address] [place] [phone] documented as of this encounter Visit Diagnoses Diagnosis Essential hypertension Unspecified essential hypertension documented in this encounter Additional Health Concerns Assessment Noted Time PHQ-9 Depression Total Score: 11 023 10:13 AM EDT documented as of this encounter Care Teams Offshoring Manager Relationship Specialty Start Date End Date Cinthya Zarate MD [address] [place] [phone] PCP - General Internal Medicine 06/26/23 documented as of this encounter
--- OUTSIDE RECORDS SUMMARY | 2024-12-02 14:50 | XMS_ITS | Clinical Summary ---
Author Organization [employer] Address [address] [place] [address] Care Team Providers Care Speed Belt Sander Tender Name Role Phone Cinthya Zarate MD Primary Care Pro vider Allergies No known active allergies Medications sertraline (Zoloft) 100 MG tablet Increased to 125mg by psych Active Blood Pressure Monitoring (Blood Pressure Monitor/L Cuff) miscIndications:b lood pressure test kit-large cuff Check BP daily 016 Active Blood Glucose Monitoring Suppl (FreeStyle Lite) w/Device kitIndications:Fr eestyle Lite Meter Kit Test 1 times by intradermal route 2 times every day 022 Active FreeStyle lancetsIndication s:28 gauge 1 each by Other route if needed. Test by intradermal route every day 022 Active aspirin 81 MG EC tablet Take 81 mg by mouth. Active loratadine (Claritin) 10 MG tabletIndications :Seasonal allergies Take 1 tablet (10 mg) by mouth in the morning. Take 1 tablet by oral route every day as needed for allergy symptoms 30 tablet 2 022 Active ketotifen (Zaditor) 0.025 % ophthalmic solutionIndicatio ns:Seasonal allergies INSTILL 1 DROP INTO THE AFFECTED EYES 2 TIMES EVERY DAY NEEDED FOR EYE ITCHING 5 mL 022 Active glucose blood (FREESTYLE LITE) test strip apply 1 by to skin route twice every day as directed fasting and post prandial 100 each 11 024 Active lidocaine (Lidoderm) 5 % patchIndications: Degeneration of cervical intervertebral disc APPLY 1 PATCH IN THE MORNING REMOVE AND DISARD PATCH WITHIN 12 HOURS OR DIRECTED 30 patch 1 Active gabapentin (Neurontin) 300 MG capsuleIndication s:Polyneuropathy Take 1 capsule (300 mg) by mouth if needed in the morning, at noon, and at bedtime (Neuropathy). 90 capsule 2 024 Active Multiple Vitamin (Multi-Vitamin) tablet Take 1 tablet by mouth Once per day. 90 tablet 3 024 Active amitriptyline (Elavil) 50 MG tablet TAKE 1 TABLET BY MOUTH EVERY DAY AT BEDTIME FOR 30 DAYS Active magnesium oxide (Mag-Ox) 400 (240 Mg) MG tablet Take 400 mg by mouth at bedtime. Active omeprazole (PriLOSEC) [address] capsule Take 20 mg by mouth Once per day. Active QUEtiapine XR (SEROquel XR) 150 MG 24 hr tablet TAKE 1 TABLET BY MOUTH EVERY NIGHT 3 HOURS BEFORE BEDTIME Active Calcium Carb-Cholecalcife rol 600-10 MG-MCG tablet Take 1 tablet by mouth Once per day. 90 tablet 1 024 Active cholecalciferol (D3-1000) 25 MCG (1000 UT) capsuleIndication s:Vitamin D deficiency TAKE 1 CAPSULE BY MOUTH EVERY DAY 90 capsule 1 024 Active ketoconazole (NIZOral) 2 % shampoo Apply topically 2 (two) times a week. 120 mL 024 Active Diclofenac Sodium (Voltaren) 1 % gelIndications:Ac noelle right-sided low back pain with right-sided sciatica Apply 2 g topically if needed in the morning and at bedtime (muscle pain). 100 g 3 024 Active metoprolol succinate XL (Toprol-XL) 25 MG 24 hr tablet TAKE 1 TABLET (25 MG) BY MOUTH ONCE PER DAY. DO NOT CRUSH OR CHEW. 90 tablet 024 Active rosuvastatin (Crestor) 10 MG tablet TAKE 1 TABLET BY MOUTH EVERY DAY IN THE MORNING 90 tablet 025 Active metFORMIN (Glucophage) 500 MG tablet TAKE 1 TABLET BY MOUTH ONCE DAILY 90 tablet 025 Active olmesartan (BENIcar) 20 MG tabletIndications :Essential hypertension TAKE 1 TABLET BY MOUTH EVERY DAY IN THE MORNING 90 tablet 025 Active olmesartan (BENIcar) 20 MG tabletIndications :Essential hypertension TAKE 1 TABLET BY MOUTH EVERY DAY IN THE MORNING 90 tablet 024 2024 Discontinued Active Problems Problem Noted Date Diagnosed Date Obesity (BMI 30-39.9) 05/25/2024 Health care maintenance 12/24/2022 Overview (06/26/2023): Colonoscopy: 03/21/23 internal hemorrhoids; diverticular disease. Await Pathology results Repeat Colonoscopy in 10 years Mammogram: 07/08/22 BIRADS 2, repeat scheduled for 2022 Pap: Total hysterectomy 1992 Last Eye visit: 11/2022. Normal, dry eye drops. Last Dental Visit: 2 years ago, Upper dentures. Vaginal dryness 10/15/2022 Prediabetes 10/15/2022 Overview (06/26/2023): Education provided re: therapeutic lifestyle changes. Encouraged patient to exercise/walk as much as possible, avoid soda/sugary beverages, drink water, eat high fiber/whole grains, fresh or frozen fruits and veg, try to avoid greasy and/or sugary foods. Medication: Gabapentin 300 mg TID PRN for neuropathy A1c: 6.0 on 02/19/23 (Target </= 7.0) Glucose: 130 on 06/24/23 Microalbumin/Cr:Alb: WNL 08/14/22 Lipids: Elevated 08/14/22 Eye exam: Discuss next visit Dental: referred 02/19/23 PNA (PPSV, then PCV 13): PCV 20 06/24/23 TDap/Td: 07/30/2019 Foot exam/peripheral pulses: Perform next visit DEYSI/ARB: Olmesartan 20 mg Statin: Rosuvastatin 10 mg Assessment & Plan (06/26/2023 9:44 PM EDT): F/u 3 months with new PCP Calcaneal spur of foot, right 09/12/2022 Overview (09/12/2022): Referred OT, appt [facility] 09/11/22. Starting PT Polyneuropathy 09/02/2022 Overview (06/26/2023): Pt reports continued burning on soles Never picked up Gabapentin 300 mg Confirmed with pharmacy and pt will be able to pickle cutter gabapentin 300mg TID PRN Assessment & Plan (06/26/2023 9:50 PM EDT): Increased dose gabapentin 300mg TID PRN Followup 3 month or sooner Prn with new PCP Cerebrovascular disease 02/14/2020 Mild cognitive disorder 02/14/2020 Severe recurrent major depression with psychotic features 12/16/2018 Overview (09/12/2022): Care managed by Psych provider [facility] Essential hypertension 09/16/2018 Gastroesophageal reflux disease 09/16/2018 Osteoarthritis of hip 09/16/2018 Anxiety 06/11/2018 Degeneration of cervical intervertebral disc 01/2016 Obstructive sleep apnea syndrome 11/23/2012 Overview (04/01/2023): Sleep medicine 01/30/23: Pt has hx of mild degree of sleep apnea but clear to have procedure under MAC anesthesia. Pt is advised to undergo home sleep study to assess for sleep apnea. Pt's previous sleep study was to apply for new CPAP. Will f/u with pt after study to discuss results and appropriate treatment options. Advised patient to change the new SD card for compliance. Assessment & Plan (06/26/2023 9:44 PM EDT): Pending new machine repair Has temporary machine until she receives machine back from [employer] F/u 3 months with new PCP or sooner PRN Abnormal gait 03/24/2012 Insomnia 03/24/2012 Resolved Problems Problem Noted Date Diagnosed Date Resolved Date Hypertension 03/24/2012 09/12/2022 Encounters Date Type Department Care Team Description 11/19/2024 Telephone [facility] [address] [place] [address] Cinthya Zarate MD May recall 11/19/2024 Refill [facility] [address] [place] [address] Cinthya Zarate MD Essential hypertension 10/29/2024 Refill [facility] [address] [facility] [place] [address] Cinthya Zarate MD 10/11/2024 Refill [facility] [address] [facility] [place] [address] Cinthya Zarate MD 10/01/2024 Refill [facility] [address] [facility] [place] [address] Cinthya Zarate MD Acute right-sided low back pain with right-sided sciatica from Last 3 Months Immunizations Name Administration Dates Next Due HPV 9-Valent 09/08/2019 Hep B, adult 04/24/2022,,01/01/2022,06/11,01/06/2018,12/02/2017 Influenza injectable quadriv alent preservative free 06/24/2023,08/01/2022,07/27/2021,06/14,07/30/2019,06/23/2019,07/09/2018 ,05/30/2015,12/06/2014 Influenza, IIV3, injectable 08/01/2022 Influenza, Split (incl. gerard fied surface antigen) 09/06/2013,07/06/2012 Influenza, seasonal, injecta ble, preservative free 06/22/2024 Pfizer Covid-19 Vaccine 12+ 06/22/2024,0 01/22/2022,08/29/2021,12/01,11/10/2020 Pfizer Covid-19 Vaccine 12+ Bivalent 08/01/2022 Pneumococcal Conjugate PCV 20 06/24/2023 Pneumococcal Polysaccharide PPSV23 12/06/2014 Tdap 07/30/2019,07/06/2012 Zoster, Recombinant 12/14/2021,09/14/2021 Family History Medical History Relation Name Comments HTN,heart disease,prostate ca Father HTN,unspecified maligancy Mother Lung cancer Mother's Brother Relation Name Status Comments Father Mother Mother's Brother Social History Tobacco Use Types Packs/Day Years Used Date Smoking Tobacco: Never Smokeless Tobacco: Never Tobacco Cessation:Counseling Given: Not Answered Alcohol Use Standard Drinks/Week Comments Never 0 [...] Orientation Straight 05/25/2024 10 :14 AM EDT Last Filed Vital Signs Vital Sign Reading Time Taken Comments Blood Pressure 138/80 06/22/2024 1:31 PM EDT Pulse 72 06/22/2024 1:31 PM EDT Temperature 36.5 ??C (97.7 ??F) 06/22/2024 1:31 PM ED T Respiratory Rate 20 06/22/2024 1:31 PM EDT Oxygen Saturation 95% 06/22/2024 1:31 PM EDT Inhaled Oxygen Concentration - - Weight 83.1 kg (183 lb 3.2 oz) 08/19/2024 10:42 AM EST Height 149.9 cm (4' 11 ) 08/19/2024 10:42 AM EST Body Mass Index 37 08/19/2024 10:42 AM EST Plan of Treatment Upcoming Encounters Date Type Department Care Team (Late st Contact Info) Description 02/16/2025 10:00 AM EDT Office Visit [facility] [address] [place] [address] Cinthya Zarate MD [address] [place], [place] [phone] Health Maintenance Due Date Last Done Comments CT Colonography 1960 Dental Prophylaxis 1960 FIT DNA/Cologuard 1960 FIT 1960 FOBT 1960 Sigmoidoscopy 1960 Alcohol/Substance Use Screening 1972 Dental Oral Exam 11/09/2016 05/08/2016, 01/14/2012 Dental X-Ray: Bitewings 05/09/2017 05/08/2016 Dental X-Ray: Full Mouth 05/09/2019 05/08/2016 Depression Monitoring (PHQ-9) 11/25/2024 05/25/2024, 05/25/2024 SDOH Screening 05/07/2025 05/07/2024 Depression Screening 05/25/2025 05/25/2024, 05/25/20 Diabetes: Hemoglobin A1C 06/15/2025 024, 02/19/2023, 08/14/2022, Additional history exists Tobacco Screening 06/22/2025 06/22/2024 Mammogram 08/10/2025 08/10/2024, 06/30, 07/08/2022, Additional history exists Lipid Panel 06/15/2029 06/15/2024, 07/30, 11/09/2020 DTaP/Tdap/Td Vaccines (3 - Td or Tdap) 07/30/2029 07/30/2019, 07/06/2012 Colonoscopy 03/18/2033 03/18/2023 Colorectal Cancer Screening 03/18/2033 RSV Patients and Patients Aged 60 years or older (1 - 1-dose 75+ series) 2035 HPV Vaccines Aged Out 09/08/2019 No longer eligi ble based on patient's age to complete this topic Zoster Vaccines Completed 12/14/2021, 09/14/2021 Hepatitis B Vaccines Completed 04/24/2022, 01/29/2022, 01/01/2022, Additional history exists Pneumococcal Vaccine: 50+ Years Completed 06/24/2023, 12/06/2014 HIV Screening Completed 06/15/2024, 12/19/2021 Hepatitis C Screening Completed 06/15/2024, 022 COVID-19 Vaccine Completed 06/22/2024, 11/2021, 01/22/2022, Additional history exists Influenza Vaccine Completed 06/22/2024, , 08/01/2022, Additional history exists HIB Vaccines Aged Out No longer eligi ble based on patient's age to complete this topic Hepatitis A Vaccines Aged Out No long er eligible based on patient's age to complete this topic IPV Vaccines Aged Out No longer eligi ble based on patient's age to complete this topic Meningococcal Vaccine Aged Out No christina regulo eligible based on patient's age to complete this topic RSV under 20 months Aged Out No longe r eligible based on patient's age to complete this topic Rotavirus Vaccines Aged Out No longer eligible based on patient's age to complete this topic Procedures Procedure Name Priority Date/Time Associated Diagnosis Comments BI MAMMOGRAM SCREENING TOMOSYNTHESIS BILATERAL Routine 08/10/2024 1:35 PM EST HEPATITIS C AB W/REFL TO HCV RNA, QN, PCR Routine 06/15/2024 9:52 AM EDT Annual physical exam HIV 1/2 ANTIGEN/ANTIBODY, FOURTH GENERATION W/RFL Routine 06/15/2024 9:52 AM EDT Annual physical exam HEMOGLOBIN A1C Routine 06/15/2024 9:52 AM EDT Annual physical exam LIPID PANEL, STANDARD Routine 06/15/2024 9:52 AM EDT Annual physical exam HM COLONOSCOPY Routine 03/18/2023 INTRAORAL - COMPLETE SERIES OF RADIOGRAPHIC IMAGES Routine 05/08/2016 12:00 AM EDT PERIODIC ORAL EVALUATION - ESTABLISHED PATIENT Routine 05/08/2016 12:00 AM EDT from Last 3 Months or Most Recently Relevant to Health Maintenance Results * BI Mammogram Screening Tomosynthesis Bilateral (08/10/2024 1:35 PM EST) Anatomical Region Laterality Modality Breast Bilateral Mammography 08/10/2024 1:35 PM EST Narrative 08/18/2024 4:01 PM EST ? [facility] ? [address] ?[place] [address] ? Mammography Report ? Signed ? Patient: Hilaria Michael ?MR#: [id number] ?? [id number] ? : 1960 ?Acct:[id number] ? Age/Sex: 64 / F ?ADM Date: 08/10/24 ? Loc: HO.MAMMO ? Attending Dr: Cinthya Montoya MD ? Ordering Physician: Cinthya Zarate MD ?Re ?? sults: 2Benign Findings ? Date of Service: 08/10/24 ?Follow Up: 1 Year From Orig ?? inal Mammogram ? Procedure(s): MM tomosynthesis screening BI ?? Accession Number(s): [id number] ? cc: Cinthya Zarate MD ? EXAMINATION: ?? MM SCREENING DIGITAL BREAST TOMOSYNTHESIS, BILATERAL ? CLINICAL INFORMATION: ? Screening. Asymptomatic. ? COMPARISON: ?? Mammography: Comparison is made with available priors ? TECHNIQUE: ?? Digital breast mammography with tomosynthesis is performed in both the ?? craniocaudal and mediolateral oblique views along with computer-aided ?? detection (CAD). ? FINDINGS: ?? There are scattered areas of fibroglandular density (ACR BI-RADS breast ?? composition Category b). ?? Circumscribed oval 5 mm mass upper outer left breast stable dating back ?? to 2011. ?? There are no significant masses, abnormal calcifications, or other ?? abnormalities. ? MM/MM tomosynthesis screening BI ?? IMPRESSION: ?? No mammographic evidence of malignancy. ? ASSESSMENT: ? BI-RADS BI-RADS 2 - Benign Findings ? RECOMMENDATION: ?? Routine annual mammography screening. ? 1 year F/U ? This examination should not preclude the clinical evaluation of a ?? suspicious palpable abnormality. ? This patient's information was entered into a reminder system with a ?? target due date for their next mammogram. ? Electronically signed by: ??Nara Todd DO ??08/18/2024 03:58 PM EST ? Dictated By: ?Nara Todd DO ? Signed By: ?<Electronically signed by Nara Todd, DO in OV> ? 08/18/24 1558 ? DD/ 1335 ? TD/TT: 08/10/24 1355 ? Inside Sales Lead: ? Procedure Note David, Image - 08/18/2024 [facility] [address] [place] [address] [place] [address] Mammography Report Signed Patient: Hilaria Michael#: M [id number] : 1960Acct:[id number] Age/Sex: 64 / FADM Date: 08/10/24 Loc: HO.MAMMO Attending Dr: Cinthya Montoya MD Ordering Physician: Cinthya Zarate sults: 2Benign Findings Date of Service: 08/10/24Follow Up: 1 Year From Orig inal Mammogram Procedure(s): MM tomosynthesis screening BI Accession Number(s): [id number] cc: Cinthya Zarate MD EXAMINATION: MM SCREENING DIGITAL BREAST TOMOSYNTHESIS, BILATERAL CLINICAL INFORMATION: Screening. Asymptomatic. COMPARISON: Mammography: Comparison is made with available priors TECHNIQUE: Digital breast mammography with tomosynthesis is performed in both the craniocaudal and mediolateral oblique views along with computer-aided detection (CAD). FINDINGS: There are scattered areas of fibroglandular density (ACR BI-RADS breast composition Category b). Circumscribed oval 5 mm mass upper outer left breast stable dating back to 2011. There are no significant masses, abnormal calcifications, or other abnormalities. MM/MM tomosynthesis screening BI IMPRESSION: No mammographic evidence of malignancy. ASSESSMENT: BI-RADS BI-RADS 2 - Benign Findings RECOMMENDATION: Routine annual mammography screening. 1 year F/U This examination should not preclude the clinical evaluation of a suspicious palpable abnormality. This patient's information was entered into a reminder system with a target due date for their next mammogram. Electronically signed by: Nara Todd DO 08/18/2024 03:58 PM [facility] Dictated By: Nara Todd DO Signed By: <Electronically signed by Nara Todd DO in OV> 08/18/24 1558 DD/ 1335 TD/TT: 08/10/24 1355 Inside Sales Lead: us Cinthya Montoya MD IMG BI PROCEDURES Final Result * Hepatitis C Antibody with Reflex to HCV, RNA, Quantitative, Real-Time PCR (06/15/2024 9:52 AM EDT) Hepatitis C Antibody Nonreactive Nonreactive [facility] Comment:Antibodies to HCV no t detected; does not exclude early acuteHCV infection. Blood Venous blood specimen / Unknown 06/15/2024 9:52 AM EDT 06/15/2024 11:41 AM EDT Cinthya Montoya MD LAB BLOOD ORDERAB LES Final Result Performing Organization Address City/[facility]/ZIP Co de Phone Number [facility] [address] [place] [address] [phone] * HIV-1/2 Antigen and Antibodies, Fourth Generation, with Reflexes (06/15/2024 9:52 AM EDT) HIV AB/AG Nonreactive Nonreactive [facility] Comment:HIV-1 p24 Ag and/or HIV-1/HIV-2 Ab not detected.A test result that is nonreactive does not exclude thepossibility of exposure to or infection with HIV-1 and/orHIV-2. Nonreactive results in this assay for individualswith prior exposure to HIV-1 and/or HIV-2 may be due toantigen and antibody levels that are below the limit ofdetection of this assay.[facility] HIV Ag/Ab Combo assay result andsupplemental assay results should be interpreted inconjunction with the patient's clinical presentation,history and other laboratory results. If the results areinconsistent with clinical evidence, additional testing issuggested to confirm the result. Blood Venous blood specimen / Unknown 06/15/2024 9:52 AM EDT 06/15/2024 11:41 AM EDT us Cinthya Montoya MD LAB BLOOD ORDERAB LES Final Result Performing Organization Address [facility] Co de Phone Number [facility] [address] [place] [address] [phone] * Hemoglobin A1c (06/15/2024 9:52 AM EDT) Hemoglobin A1c 6.0 <6.0 % [facility] Comment:Hemoglobin A1C Refer ence Range Adults: 4.8 - 6.0 % Non diabetic: < 6.0 % Goal: < 7.0 %Additional Action Suggested: > 8.0 %Note: Hemoglobin A1c results are invalid for patients with abnormal amounts of HbF. Blood transfusions may impact the HbA1c concentration in the patient sample. Estimated Average Glucose 126 mg/dL [facility] Comment:eAG = Estimated ave rage glucose which is %A1C expressed asaverage glucose, using the formula of the S2C-FlqvbhrDuegzkz Glucose study (ADAG), Diabetes Care, Vol.31,#8,Apr. 2007 Blood Venous blood specimen / Unknown 06/15/2024 9:52 AM EDT 06/15/2024 11:48 AM EDT us Cinthya Montoya MD LAB BLOOD ORDERAB LES Final Result Performing Organization Address [facility] Co de Phone Number [facility] [address] [place] [phone] * (ABNORMAL) Lipid Panel, Standard (06/15/2024 9:52 AM EDT) Triglycerides 70 <150 mg/dL [facility] Comment:Desirable Triglyceri de: less than 150 mg/dLBorderline High Triglyceride 150-199 mg/dLHigh Triglyceride: 200-499 mg/dLVery High Triglyceride: greater than or equal to 5OO mg/dL Cholesterol 164 <200 mg/dL [facility] Comment:Desirable Cholestero l: less than 200 mg/dLBorderline High Cholesterol: 200-239 mg/dLHigh Cholesterol: greater than 239 mg/dL LDL Cholesterol Calculated 103(H) <100 mg/dL [facility] Comment:Desirable LDL: less than 100 mg/dLNear Optimal/Above Optimal LDL: 110- 129 mg/dLBorderline High LDL: 130-159 mg/dLHigh LDL: 160-189 mg/dLVery High LDL: greater than or equal to 190 mg/dL HDL Cholesterol 47 >40 mg/dL [facility] Comment:Desirable HDL: great er than 40 mg/dL Note: This HDL assay may give artificially low results in patients with liver disease. Blood Venous blood specimen / Unknown 06/15/2024 9:52 AM EDT 06/15/2024 11:48 AM EDT us Cinthya Montoya MD LAB BLOOD ORDERAB LES Final Result Performing Organization Address City/[facility]/ZIP Co de Phone Number [facility] [address] [place] [phone] * (ABNORMAL) Colonoscopy (03/18/2023) Colonoscopy Normal Normal us Historical Provider HEALTH MAINTENANCE Edited Result - Final from Last 3 Months or Most Recently Relevant to Health Maintenance [place] [address] C[address] [facility] [address] MEDICAID STAND ADULT Care Teams Speed Belt Sander Tender Relationship Specialty Start Date End Date Luis Jan, Emely, MD [address] [place] [id number] PCP - General Internal Medicine 06/26/23
--- OUTSIDE RECORDS SUMMARY | 2024-12-02 14:50 | XMS_ITS | Clinical Summary ---
Author Organization [facility] Address [address] [place] [address] Care Team Providers Care Rn School Name Role Phone Rosalinda Levine Primary Care Provider [phone] Allergies No known active allergies Medications lidocaine-menth [...] 12/27/2021 3:19 PM EDT Plan of Treatment Health Maintenance Due Date Last Done Comments Cervical Cancer Screening 1960 Cologuard 1960 Colon Cancer Screening 1960 Colonoscopy 1960 FOBT / Fit Test 1960 HIV Screening 1960 HPV and Pap Smear 1960 Hepatitis C Screening 1960 Pap Smear 1960 Sigmoidoscopy 1960 Mammogram 2000 Pneumococcal Vaccine: 50+ Years (2 of 2 - PCV) 12/07/2015 12/06/2014 DTaP,Tdap,and Td Vaccines (2 - Td or Tdap) 07/06/2022 07/06/2012 COVID-19 Vaccine ( season) 2024 08/29/2021, 12/01/2020, 12/01/2020, Additional history exists Influenza Vaccine (#1) 2024 , 06/14/2020, 06/23/2019, Additional history exists Alcohol/Substance Use Screening 09/29/2024 Depression Screening and Follow-Up 09/29/2024 Social Drivers of Health Annual Screening 09/29/2024 RSV Vaccine (60+ years old and patients) (1 - 1-dose 75+ series) 2035 Zoster Vaccines Completed 12/14/2021, 09/14/2021 Hepatitis B Vaccines Aged Out No long er eligible based on patient's age to complete [place] [address] [facility] Care Teams Rn School Relationship Specialty Start Date End Date Rosalinda Levine [address] [place] [phone] PCP - General 09/26/21
== END 2024-12-02 13:00 | disposition home or self-care (01) ==
PROVIDERS: Visit Provider Psychiatry & Neurology Neurology
DX: G47.33 Obstructive sleep apnea (adult) (pediatric) (principal); R51.9 Headache, unspecified; M54.2 Cervicalgia
CPT/HCPCS: 99214

== ENCOUNTER → 2024-12-02 12:19 | Outpatient (BNVA) | payer MEDICAID, SELFPAY | PROVIDERS: Visit Provider Psychiatry & Neurology Neurology | DX: G47.33 Obstructive sleep apnea (adult) (pediatric) (principal); R51.9 Headache, unspecified; M54.2 Cervicalgia; Z99.89 Dependence on other enabling machines and devices | CPT/HCPCS: 99212 ==

== ENCOUNTER 2025-02-17 11:18 | Outpatient (REF) | payer MEDICAID, SELFPAY ==
--- OUTSIDE RECORDS SUMMARY | 2025-02-17 11:56 | XMS_ITS | Encounter Summary ---
Author Organization [employer] Address [address] [facility] 7t [place] [address] Care Team Providers Care Group Exercise Manager Name Role Phone Cinthya Zarate MD Primary Care Pro vider Reason for Visit * Reason Comments Med Refill Encounter Details Date Type Department Care Team ([facility] st Contact Info) Description 11/09/2023 Refill [facility] [address] [place], [place] [phone] Cinthya Zarate MD [address] [place] [address] Essential hypertension Social History Tobacco Use Types [...] Care Team (Late st Contact Info) Description 04/15/2025 10:00 AM EDT Office Visit [facility] MEDICINE [address] [place] [phone] Cinthya Zarate MD [address] [place] [phone] documented as of this encounter Visit Diagnoses Diagnosis Essential hypertension Unspecified essential hypertension documented in this encounter Additional Health Concerns Assessment Noted Time PHQ-9 Depression Total Score: 11 023 10:13 AM EDT documented as of this encounter Care Teams Group Exercise Manager Relationship Specialty Start Date End Date Cinthya Zarate MD [address] [place] [phone] PCP - General Internal Medicine 06/26/23 documented as of this encounter
--- OUTSIDE RECORDS SUMMARY | 2025-02-17 11:56 | XMS_ITS | Referral Summary ---
Author Organization [facility] Address [address] [place] [address] Care Team Providers Care Meat Boner Name Role Phone Rosalinda Levine Primary Care Provider [phone] Allergies No known active allergies Medications lidocaine-menth [...] Plan of Treatment Not on file Insurance [employer] [id number] [facility] Care Teams Meat Boner Relationship Specialty Start Date End Date DimitrichrisdominiqueRosalinda [address] [place] [phone] PCP - General 09/26/21
--- OUTSIDE RECORDS SUMMARY | 2025-02-17 11:56 | XMS_ITS | Encounter Summary ---
Author Organization [employer] Address [address] [facility] 7t [place] [address] Care Team Providers Care Validation Leader Name Role Phone Cinthya Zarate MD Primary Care Pro vider Encounter Details Date Type Department Care Team (Late st Contact Info) Description 01/22/2024 Telephone [facility] MEDICINE [address] [place], [place] [phone] Cinthya Zarate MD [address] [place], [place] [phone] Social History Tobacco Use Types Packs/Day Years [...] t he electric, gas, oil or water [employer] threatened to shut off services in your [...] Description 04/15/2025 10:00 AM EDT Office Visit [facility] MEDICINE [address] [place] [phone] Cinthya Zarate MD [address] [place] [phone] documented as of this encounter Visit Diagnoses Not on filedocumented in this encounter Additional Health Concerns Assessment Noted Time PHQ-9 Depression Total Score: 11 023 10:13 AM EDT documented as of this encounter Care Teams Validation Leader Relationship Specialty Start Date End Date Cinthya Zarate MD [address] [place] [phone] PCP - General Internal Medicine 06/26/23 documented as of this encounter
--- OUTSIDE RECORDS SUMMARY | 2025-02-17 11:57 | XMS_ITS | Encounter Summary ---
Author Organization [employer] Address 75 [facility] 7t [place] [address] Care Team Providers Care Free Lance Artist Name Role Phone Cinthya Zarate MD Primary Care Pro vider Reason for Visit * Reason Onset Date Comments Med Refill [facility] 02/16/2025 I informed the p atient that an order for a Tspot, was sent to the lab. There is a Family [employer] Form, that needs to be completed. She stated that she would come to the [facility] lab, to have it done today. Encounter Details Date Type Department Care Team (Late st Contact Info) Description 02/16/2025 Refill [facility] MEDICINE [address] [place], [place] [phone] Cinthya Zarate MD [address] [place], [place] [phone] Social History Tobacco Use Types Packs/Day Years Used Date Smoking Tobacco: Never Smokeless Tobacco: Never Alcohol Use Standard Drinks/Week Comments Never 0 (1 standard drink = 0.6 oz pur e alcohol) Depression Answer Date Recorded Patient Health Questionnaire-9 Score 7 02/16/2025 Patient Health Questionnaire-9 Score 7 02/16/2025 Last PHQ-9: Questionnaire Data Not on file 0 02/16/2025 Housing Stability Answer Date Recorded What is [...] Answer Date Recorded Patient Health Questionnaire-2 Score 2 02/16/2025 Internet Access Answer Date Recorded Internet Access Q1 Yes 05/31/2024 Internet Access Q2 Not on file 05/31/2024 Comments No Sex and Gender Information Value Date Recorded Sex Assigned at Female 07/29/2022 10:16 AM EDT Legal Sex Female 10:16 AM EDT Gender Identity Female 07/29/2022 10:16 AM EDT Sexual Orientation Straight 05/25/2024 10 :14 AM EDT documented as of this encounter Functional Status * Over the past 2 weeks, how often have you been bothered by any of the following problems? Question Answer Date of Assessment Author Patient Health Questionnaire -2 Score 2 02/16/2025 10:26 AM EDT Adina Mccarty MA * Little interest or pleasure in doing things Answer Date of Assessment Author Several days 02/16/2025 10:26 AM EDT Adina Mccarty MA * Feeling down, depressed, or hopeless Answer Date of Assessment Author Several days 02/16/2025 10:26 AM EDT Adina Mccarty MA * Trouble falling or staying asleep, or sleeping too much Answer Date of Assessment Author Several days 02/16/2025 10:26 AM BELGICAT Adina Mccarty MA * Feeling tired or having little energy Answer Date of Assessment Author Several days 02/16/2025 10:26 AM BELGICAT Adina Mccarty MA * Poor appetite or overeating Answer Date of Assessment Author Several days 02/16/2025 10:26 AM BELGICAT Adina Mccarty MA * Feeling bad about yourself - or that you are a failure or have let yourself or your family down Answer Date of Assessment Author Not at all 02/16/2025 10:26 AM Adina Dumont MA * Trouble concentrating on things, such as reading the newspaper or watching television Answer Date of Assessment Author Several days 02/16/2025 10:26 AM Adina Dumont MA * Moving or speaking so slowly that other people could have noticed? Or the opposite - being so fidgety or restless that you have been moving around a lot more than usual. Answer Date of Assessment Author Several days 02/16/2025 10:26 AM Adina Dumont MA * Thoughts that you would be better off or hurting yourself in some way Answer Date of Assessment Author Not at all 02/16/2025 10:26 AM Adina Dumont MA * Patient Health Questionnaire-9 Score Answer Date of Assessment Author 7 02/16/2025 10:26 AM Adina Dumont MA * How difficult have these problems made it for you to do your work, take care of things at home, or get along with other people? Answer Date of Assessment Author Very difficult 02/16/2025 10:26 AM Adina Dumont MA * Over the last 2 weeks, how often have you been bothered by any of the following problems? Question Answer Date of Assessment Author Feeling nervous, anxious, or on edge 1 02/16/2025 10:27 AM Adina Dumont MA Not being able to stop or co ntrol worrying 1 02/16/2025 10:27 AM Adina Dumont MA Worrying too much about diff erent things 1 02/16/2025 10:27 AM Adina Dumont MA Trouble relaxing 1 02/16/2025 10:27 AM Adina Dumont MA Being so restless that it is hard to sit still 1 02/16/2025 10:27 AM Adina Dumont MA Becoming easily annoyed or irritable 0 02/16/2025 10:27 AM EDT Adina Mccarty MA Feeling afraid as if somethi ng awful might happen 1 02/16/2025 10:27 AM EDT Adina Mccarty MA TAMIA-7 Total Score 6 02/16/2025 10:27 AM EDT Adina Mccarty MA documented as of this encounter Miscellaneous Notes * Telephone Encounter - Khushbu Paiz MA - 02/17/2025 10:31 AM EDT I informed the patient that an order for a Tspot, was sent to the lab. There is a Family [employer] Form, that needs to be completed. She stated that she would come to the [facility] lab, to have it done today. * Telephone Encounter - Cinthya Montoya MD - 02/16/2025 5:40 PM EDT No need for refills documented in this encounter Plan of Treatment Upcoming Encounters Date Type Department Care Team (Late st Contact Info) Description 04/15/2025 10:00 AM EDT Office Visit [facility] MEDICINE [address] [place] [phone] Cinthya Zarate MD [address] [place] [phone] documented as of this encounter Visit Diagnoses Not on filedocumented in this encounter Additional Health Concerns Assessment Noted Time PHQ-9 Depression Total Score: 7 02/17/20 25 10:26 AM EDT documented as of this encounter Care Teams Free Lance Artist Relationship Specialty Start Date End Date Cinthya Zarate MD [address] [place] [phone] PCP - General Internal Medicine 06/26/23 documented as of this encounter
--- OUTSIDE RECORDS SUMMARY | 2025-02-17 11:57 | XMS_ITS | Clinical Summary ---
Author Organization [employer] Address 75 [facility] 7t [place] [address] Care Team Providers Care Processor Helper Name Role Phone Cinthya Zarate MD Primary [...] and at bedtime (Neuropathy). 90 capsule 2 Active Multiple Vitamin (Multi-Vitamin) tablet Take 1 tablet by mouth Once per day. 90 tablet 3 Active amitriptyline (Elavil) 50 MG tablet TAKE [...] EVERY DAY 90 capsule 1 024 Active olmesartan (BENIcar) 20 MG tabletIndications :Essential hypertension TAKE 1 TABLET BY MOUTH EVERY DAY IN THE MORNING 90 tablet 025 Active metoprolol succinate XL (Toprol-XL) 25 MG 24 hr tablet TAKE 1 TABLET BY MOUTH ONCE PER DAY. DO NOT CRUSH OR CHEW. 90 tablet 025 Active Diclofenac Sodium 1 % gelIndications:Ac noelle right-sided low back pain with right-sided sciatica APPLY 2 GM TOPICALLY IF NEEDED IN THE MORNING AND AT BEDTIME (MUSCLE PAIN). 100 g 3 025 Active rosuvastatin (Crestor) 10 MG tablet Take 1 tablet (10 mg) by mouth in the morning. 90 tablet 025 Active metFORMIN (Glucophage) 500 MG tablet Take 1 tablet (500 mg) by mouth Once per day. 90 tablet 025 Active ketoconazole (NIZOral) 2 % shampoo APPLY TOPICALLY 2 TIMES A WEEK. 120 mL 025 Active butalbital-acetam inophen-caffeine 50-325-40 MG tablet TOME 1 TABLETA POR V A ORAL CADA 6 HORAS CUANDO SEA NECESARIO FOR 30 DAYS 025 Active Tirzepatide-Weigh t Management (Zepbound) 2.5 MG/0.5ML solution auto-injectorIndi cations:Obesity Inject 0.5 mL (2.5 mg) under the skin 1 (one) time per week. Start 2.5 mg weekly x 4 weeks, then increased to 5 mg x 4 weeks, then increase to 7.5 mg weekly 2 mL 025 2024 Active ketoconazole (NIZOral) 2 % shampoo APPLY TOPICALLY 2 TIMES A WEEK 120 mL 025 2024 Discontinued Active Problems Problem Noted Date [...] right 09/12/2022 Overview (09/12/2022): Referred OT, appt [facility] 09/11/22. Starting PT Polyneuropathy 09/02/2022 Overview (06/26/2023): Pt reports continued burning on soles Never picked up Gabapentin 300 mg Confirmed with pharmacy and pt will be able to slat pickler gabapentin 300mg TID PRN Assessment & Plan [...] machine until she receives machine back from [facility] F/u 3 months with new PCP or sooner PRN Abnormal gait 03/24/2012 Insomnia 03/24/2012 Resolved Problems Problem Noted Date Diagnosed Date Resolved Date Hypertension 03/24/2012 09/12/2022 Encounters Date Type Department Care Team Description 02/16/2025 10:00 AM EDT Office Visit [facility] [address] [place] [address] Cinthya Zarate MD Prediabetes (Primary Dx); Health care maintenance 02/16/2025 Travel 02/16/2025 Refill [facility] [address] [place] [address] Cinthya Zarate MD 02/15/2025 Telephone [facility] [address] [place] [phone] Yara Almanzar MA CHART PREP 02/09/2025 Patient Outreach [facility] [address] [place], [place] [phone] Cinthya Zarate MD Pre-visit Planning (SDOH negative, Tobacco screening negative) 01/19/2025 Refill [facility] [address] [place] [address] Shadia Weir MD 12/18/2024 Refill [facility] [address] [place] [address] Shadia Weir MD 12/18/2024 Refill [facility] [address] [place] [address] [facility] Essential hypertension 12/18/2024 Refill [facility] [address] [place] [address] Cinthya Zarate MD Acute right-sided low back pain with right-sided sciatica 12/10/2024 Population Health Risk Score Community Care [facility] ([facility] Department [address] [place] [phone] Provider, Population Health Generic from Last 3 Months Immunizations Immunization Administration Dates Next Due HPV 9-Valent 09/08/2019 [...] housing situation today? I have jayson piotr 05/07/[address] you li [...] Sign Reading Time Taken Comments Blood Pressure 147/86 02/16/2025 10:24 AM EDT Pulse 72 02/16/2025 10:23 AM EDT Temperature 36.6 ??C (97.9 ??F) 02/16/2025 1 0:23 AM EDT Respiratory Rate 20 02/16/2025 10:2 3 AM EDT Oxygen Saturation 96% 02/16/2025 10: 23 AM EDT Inhaled Oxygen Concentration - - Weight 85.6 kg (188 lb 12.8 oz) 025 10:23 AM EDT Height 149.9 cm (4' 11 ) 02/16/2025 10: 23 AM EDT Body Mass Index 38.13 02/16/2025 10:23 AM EDT Plan of Treatment Upcoming Encounters Date Type Department Care Team (Late st Contact Info) Description 04/15/2025 10:00 AM EDT Office Visit [facility] [address] [place], [place] [phone] Cinthya Zarate MD [address] [place], [place] [phone] Health Maintenance Due Date Last Done Comments CT Colonography 1960 Dental Prophylaxis 1960 FIT DNA/Cologuard 1960 FIT 1960 FOBT 1960 Sigmoidoscopy 1960 Dental Oral Exam 11/09/2016 05/08/2016, 01/14/2012 Dental X-Ray: Bitewings 05/09/2017 05/08/2016 Dental X-Ray: Full Mouth 05/09/2019 05/08/2016 Diabetes: Hemoglobin A1C 06/15/2025 024, 02/19/2023, 08/14/2022, Additional history exists Tobacco Screening 06/22/2025 06/22/2024 Mammogram 08/10/2025 08/10/2024, 06/30, 07/08/2022, Additional history exists SDOH Screening 02/09/2026 02/09/2025 Alcohol/Substance Use Screening 02/16/2026 02/16/2025 Depression Screening 02/16/2026 02/16/2025, 02/17/20 25 Disability Screening 02/16/2026 02/16/2025 Lipid Panel 06/15/2029 06/15/2024, 07/30, 11/09/2020 DTaP/Tdap/Td [...] patient's age to complete this topic Meningococcal B Vaccine Aged Out No l onger eligible based on patient's age to complete [...] EST Narrative 08/18/2024 4:01 PM EST ? [facility] ? [address] ?[place] [address] ? Mammography Report ? Signed ? Patient: Doug Hernandez,Hilaria ?MR#: M ?? [id number] ? : 1960 ?Acct:[id number] ? Age/Sex: 64 / F ?ADM Date: 08/10/24 ? Loc: HO.MAMMO ? Attending Dr: Cinthya Montoya MD ? Ordering Physician: Cinthya Zarate MD ?Re ?? sults: 2Benign Findings ? Date of Service: 08/10/24 ?Follow Up: 1 Year From Orig ?? inal Mammogram ? Procedure(s): MM tomosynthesis screening BI ?? Accession Number(s): [id number] ? cc: Cinthya Zarate MD ? EXAMINATION: [...] ??Nara Todd DO ??08/18/2024 03:58 PM EST ?? RP ? Dictated By: ?Nara Todd DO ? Signed By: ?<Electronically signed by Nara Todd, DO in OV> ? 08/18/24 1558 ? DD/ 1335 ? TD/TT: 08/10/24 1355 ? Insurance Biller: ? Procedure Note Donotjakeinterpreter, Image - 08/18/2024 [facility] [address] [place] [address] Mammography Report Signed Patient: Raisa Michael#: M [id number] : 1960Acct:[id number] Age/Sex: 64 / FADM Date: 08/10/24 Loc: [facility] Attending Dr: Cinthya Montoya MD Ordering Physician: Cinthya Zaratee sults: 2Benign Findings Date of Service: 08/10/24Follow Up: 1 Year From Orig ina Mammogram Procedure(s): MM tomosynthesis screening BI Accession Number(s): [id number] cc: Cinthya Zarate MD EXAMINATION: MM SCREENING [...] by: Nara Todd DO 08/18/2024 03:58 PM EST Dictated By: Nara Todd DO Signed By: <Electronically signed by Nara Todd DO in OV> 08/18/24 1558 DD/ 1335 TD/TT: 08/10/24 1355 Insurance Biller: Cinthya Montoya MD IMG BI PROCEDURES Final Result * Hepatitis C Antibody with Reflex to HCV, RNA, Quantitative, Real-Time PCR (06/15/2024 9:52 AM EDT) Hepatitis C Antibody Nonreactive Nonreactive [facility] Comment:Antibodies to HCV no t detected; does not exclude early acuteHCV infection. Blood Venous blood specimen / Unknown 06/15/2024 9:52 AM EDT 06/15/2024 11:41 AM EDT Cinthya Montoya MD LAB BLOOD ORDERAB LES Final Result [facility] [address] [place] [phone] * HIV-1/2 Antigen and Antibodies, Fourth Generation, with Reflexes (06/15/2024 9:52 AM EDT) HIV AB/AG Nonreactive Nonreactive [facility] Comment:HIV-1 p24 Ag and/or HIV-1/HIV-2 Ab not detected.A test result that is nonreactive does not exclude thepossibility of exposure to or infection with HIV-1 and/orHIV-2. Nonreactive results in this assay for individualswith prior exposure to HIV-1 and/or HIV-2 may be due toantigen and antibody levels that are below the limit ofdetection of this assay.The [employer] HIV Ag/Ab Combo assay result andsupplemental assay results should be interpreted inconjunction with the patient's clinical presentation,history and other laboratory results. If the results areinconsistent with clinical evidence, additional testing issuggested to confirm the result. Blood Venous blood specimen / Unknown 06/15/2024 9:52 AM EDT 06/15/2024 11:41 AM EDT us Cinthya Montoya MD LAB BLOOD ORDERAB LES Final Result Performing Organization Address [facility] Co de Phone Number [facility] [address] [place] [phone] * Hemoglobin A1c (06/15/2024 9:52 AM EDT) Hemoglobin A1c 6.0 <6.0 % [facility] Comment:Hemoglobin A1C Refer ence Range Adults: 4.8 - 6.0 % Non diabetic: < 6.0 % Goal: < 7.0 %Additional Action Suggested: > 8.0 %Note: Hemoglobin A1c results are invalid for patients with abnormal amounts of HbF. Blood transfusions may impact the HbA1c concentration in the patient sample. Estimated Average Glucose 126 mg/dL [facility] Comment:eAG = Estimated ave rage glucose which is %A1C expressed asaverage glucose, using the formula of the O2X-TeyavmpWhbjhtz Glucose study (ADAG), Diabetes Care, Vol.31,#8,Apr. 2007 Blood Venous blood specimen / Unknown 06/15/2024 9:52 AM EDT 06/15/2024 11:48 AM EDT Cinthya Montoya MD LAB BLOOD ORDERAB LES Final Result Performing Organization Address [facility]/ZIP Co de Phone Number [facility] [address] [place] [phone] * (ABNORMAL) Lipid Panel, Standard (06/15/2024 9:52 AM EDT) Triglycerides 70 <150 mg/dL [facility] Comment:Desirable Triglyceri de: less than 150 mg/dLBorderline High Triglyceride 150-199 mg/dLHigh Triglyceride: 200-499 mg/dLVery High Triglyceride: greater than or equal to 5OO mg/dL Cholesterol 164 <200 mg/dL [facility] Comment:Desirable Cholestero l: less than 200 mg/dLBorderline High Cholesterol: 200-239 mg/dLHigh Cholesterol: greater than 239 mg/dL LDL Cholesterol Calculated 103(H) <100 mg/dL [facility] Comment:Desirable LDL: less than 100 mg/dLNear Optimal/Above Optimal LDL: 110- 129 mg/dLBorderline High LDL: 130-159 mg/dLHigh LDL: 160-189 mg/dLVery High LDL: greater than or equal to 190 mg/dL HDL Cholesterol 47 >40 mg/dL [facility] Comment:Desirable HDL: great er than 40 mg/dL Note: This HDL assay may give artificially low results in patients with liver disease. Blood Venous blood specimen / Unknown 06/15/2024 9:52 AM EDT 06/15/2024 11:48 AM EDT Cinthya Montoya MD LAB BLOOD ORDERAB LES Final Result [facility] [address] [place] [phone] [phone] * (ABNORMAL) Colonoscopy (03/18/2023) Colonoscopy Normal Normal Historical Provider HEALTH MAINTENANCE Edited Result - Final from Last 3 Months or Most Recently Relevant to Health Maintenance Insurance [facility] STANDARD D[facility]-[facility] MEDICA[employer] STAND ADULT Care Teams Processor Helper Relationship Specialty Start Date End Date Cinthya Zarate MD [address] [place] [phone] PCP - General Internal Medicine 06/26/23
--- OUTSIDE RECORDS SUMMARY | 2025-02-17 11:57 | XMS_ITS | Encounter Summary ---
Author Organization [employer] Address 75 [facility] 7t [place] [address] Care Team Providers Care Lug Breaker And Wire Puller Name Role Phone Cinthya Zarate MD Primary Care Pro vider Encounter Details Date Type Department Care Team (Late st Contact Info) Description 02/16/2025 10:00 AM EDT Office Visit [facility] [address] [place], [place] [phone] Cinthya Zarate MD [address] [place], [place] [phone] Prediabetes (Primary Dx); Health care maintenance Social History Tobacco Use Types Packs/Day Years [...] AM EDT documented as of this encounter Last Filed Vital Signs Vital Sign Reading [...] Mass Index 38.13 02/16/2025 10:23 AM EDT documented in this encounter Functional Status * Over the [...] 02/16/2025 10:26 AM Adina Dumont MA * Feeling tired or having little energy Answer Date of Assessment Author Several days 02/16/2025 10:26 AM Adina Dumont MA * Poor appetite or overeating Answer Date of Assessment Author Several days 02/16/2025 10:26 AM Adina Dumont MA * Feeling bad about yourself - [...] co ntrol worrying 1 02/16/2025 10:27 AM EDT Adina Mccraty MA Worrying too much about diff erent things 1 02/16/2025 10:27 AM EDT Adina Mccarty MA Trouble relaxing 1 02/16/2025 10:27 AM EDT Adina Mccarty MA Being so restless that it is hard to sit still 1 02/16/2025 10:27 AM EDT Adina Mccarty MA Becoming easily annoyed or irritable 0 02/16/2025 10:27 AM EDT Adina Mccarty MA Feeling afraid as if somethi ng awful might happen 1 02/16/2025 10:27 AM EDT Adina Mccarty MA TAMIA-7 Total Score 6 02/16/2025 10:27 AM EDT Adina Mccarty MA documented as of this encounter Plan of Treatment Upcoming Encounters Date Type Department Care Team (Late st Contact Info) Description 04/15/2025 10:00 AM EDT Office Visit [facility] MED[facility] [address] [place] [address] [phone] Cinthya Zarate MD [address] [place], [place] [phone] Scheduled Orders Name Type Priority Associated Diagnoses Orde r Schedule Vitamin D, 25-Hydroxy, Total, Immunoassay Lab Routine Prediabetes Expected: 02/16/2025 (Approximate), Expires: 02/16/2026 Hemoglobin A1c Lab Routine Prediabetes Expected: 02/16/2025 (Approximate), Expires: 02/16/2026 Comprehensive Metabolic Panel Lab Routine Prediabetes Expected: 02/16/2025 (Approximate), Expires: 02/16/2026 Lipid Panel, Standard Lab Routine Prediabetes Expected: 02/16/2025 (Approximate), Expires: 02/16/2026 Measles, Mumps, and Rubella (MMR) Antibodies??(IgG) Panel, Immune Status Lab Routine Health care maintenance Expected: 02/16/2025 (Approximate), Expires: 02/16/2026 documented as of this encounter Visit Diagnoses Diagnosis Prediabetes- Primary Other abnormal glucose Health care maintenance documented in this encounter Additional Health Concerns Assessment Noted Time PHQ-9 Depression Total Score: 7 02/17/20 25 10:26 AM EDT documented as of this encounter Care Teams Lug Breaker And Wire Puller Relationship Specialty Start Date End Date Cinthya Zarate MD [address] [place] [phone] PCP - General Internal Medicine 06/26/23 documented as of this encounter
--- OUTSIDE RECORDS SUMMARY | 2025-02-17 11:57 | XMS_ITS | Clinical Summary ---
Author Organization [facility] Address [address] [place] [address] Care Team Providers Care Cdl Team Truck Driver Name Role Phone Rosalinda Levine Primary Care Provider [phone] Allergies No known active allergies Medications lidocaine-menth [...] 2024 08/29/2021, 12/01/2020, 12/01/2020, Additional history exists Alcohol/Substance Use Screening 09/29/2024 Depression Screening and Follow-Up 09/29/2024 Social Drivers of Health Annual Screening 09/29/2024 Influenza Vaccine (Season Ended) 2025 07/27/2021, 06/14/2020, 06/23/2019, Additional history exists RSV Vaccine (60+ years old and patients) (1 - 1-dose 75+ series) 2035 Zoster Vaccines Completed 12/14/2021, 09/14/2021 Hepatitis B Vaccines Aged Out No long er eligible based on patient's age to complete [id number] [facility] Care Teams Cdl Team Truck Driver Relationship Specialty Start Date End Date Rosalinda Levine [address] [place] [phone] PCP - General 09/26/21
--- OUTSIDE RECORDS SUMMARY | 2025-02-17 11:57 | XMS_ITS | Encounter Summary ---
Author Organization [employer] Address [address] [facility] 7t [place] [address] Care Team Providers Care Motion Picture Projectionist Name Role Phone Cinthya Zarate MD Primary Care Pro vider Encounter Details Date Type Department Care Team (Latest Contact Info) Description 02/16/2025 Travel Social History Tobacco Use Types Packs/Day Years [...] 10:26 AM EDT Adina Mccarty MA * Poor appetite or [...] 10:26 AM BELGICAT Adina Mccarty MA * Moving or speaking so slowly [...] annoyed or irritable 0 02/16/2025 10:27 AM Adina Dumont MA Feeling afraid as if somethi ng awful might happen 1 02/16/2025 10:27 AM Adina Dumont MA TAMIA-7 Total Score 6 02/16/2025 10:27 AM Adina Dumont MA documented as of this encounter Plan of Treatment Upcoming Encounters Date Type Department Care Team (Late st Contact Info) Description 04/15/2025 10:00 AM EDT Office Visit [facility] MEDICINE [address] [place] [address] Cinthya Zarate MD [address] [place], [place] [phone] documented as of this encounter Visit Diagnoses Not on filedocumented in this encounter Additional Health Concerns Assessment Noted Time PHQ-9 Depression Total Score: 7 02/17/20 25 10:26 AM EDT documented as of this encounter Care Teams Motion Picture Projectionist Relationship Specialty Start Date End Date Cinthya Zarate MD [address] [place] [address] PCP - General Internal Medicine 06/26/23 documented as of this encounter
--- OUTSIDE RECORDS SUMMARY | 2025-02-17 11:57 | XMS_ITS | Encounter Summary ---
Author Organization [employer] Address [address] [facility] 7 [place] [address] Care Team Providers Care File Drawer Finisher Name Role Phone Cinthya Zarate MD Primary Care Pro vider Reason for Visit * Reason Comments Med Refill Encounter Details Date Type Department Care Team ([facility] st Contact Info) Description 10/01/2024 Refill [facility] MEDICINE [address] [place], [place] [phone] Cinthya Zarate MD [address] [place], [place] [phone] Acute right-sided low back pain with right-sided [...] housing situation today? I have jaysonluis saldaña 05/07/[address] you [...] Description 04/15/2025 10:00 AM EDT Office Visit [facility] MED[facility]INE [address] [place] [address] Cinthya Zarate MD [address] [place] [address] documented as of this encounter Visit Diagnoses Diagnosis Acute right-sided low back pain with right-sided sciatica documented in this encounter Additional Health Concerns Assessment Noted Time PHQ-9 Depression Total Score: 19 024 10:09 AM EDT documented as of this encounter Care Teams File Drawer Finisher Relationship Specialty Start Date End Date Cinthya Zarate MD [address] [place] [phone] PCP - General Internal Medicine 06/26/23 documented as of this encounter
--- OUTSIDE RECORDS SUMMARY | 2025-02-17 11:57 | XMS_ITS | Encounter Summary ---
Author Organization [employer] Address [address] [facility] 7t [place] [address] Care Team Providers Care Production Line Operator Name Role Phone Cinthya Zarate MD Primary Care Pro vider Reason for Visit * Reason Comments Med Refill Encounter Details Date Type Department Care Team ([facility] st Contact Info) Description 12/18/2024 Refill [facility] MEDICINE [address] [place], [place] [phone] [facility] [address] [place], [place] [phone] Essential hypertension Social History Tobacco Use Types [...] Description 04/15/2025 10:00 AM EDT Office Visit [facility] MEDICINE [address] [place] [phone] Cinthya Zarate MD [address] [place] [address] documented as of this encounter Visit Diagnoses Diagnosis Essential hypertension Unspecified essential hypertension documented in this encounter Additional Health Concerns Assessment Noted Time PHQ-9 Depression Total Score: 19 024 10:09 AM EDT documented as of this encounter Care Teams Production Line Operator Relationship Specialty Start Date End Date Cinthya Zarate MD [address] [place] [phone] PCP - General Internal Medicine 06/26/23 documented as of this encounter
--- OUTSIDE RECORDS SUMMARY | 2025-02-17 11:57 | XMS_ITS | Encounter Summary ---
Author Organization [employer] Address [address] [facility] 7t [place] [address] Care Team Providers Care Tunnel Kiln Firer Name Role Phone Cinthya Zarate MD Primary Care Pro vider Reason for Visit * Reason Onset Date Comments CHART PREP 02/15/2025 Encounter Details Date Type Department Care Team ([facility] st Contact Info) Description 02/15/2025 Telephone [facility] MEDICINE [address] [place], [place] [phone] Yara Almanzar MA CHART PREP Social History Tobacco Use Types Packs/Day Years [...] encounter Miscellaneous Notes * Telephone Encounter - Yara Almanzar MA - 02/15/2025 11:08 AM EDT Chart Prep Labs: done 06/15/24 Images: done mammo/bone dexa done 08/10/24 Referrals: not applicable Vaccines due: not applicable Screenings: not applicable Overdue care gaps: SBIRT, PHQ-9, TAMIA-7, and Disability screen documented in this encounter Plan of Treatment Upcoming Encounters Date Type Department Care Team (Late st Contact Info) Description 04/15/2025 10:00 AM EDT Office Visit [facility] MEDICINE [address] [place] [address] Cinthya Zarate MD [address] [place] [phone] documented as of this encounter Visit Diagnoses Not on filedocumented in this encounter Additional Health Concerns Assessment Noted Time PHQ-9 Depression Total Score: 19 024 10:09 AM EDT documented as of this encounter Care Teams Tunnel Kiln Firer Relationship Specialty Start Date End Date Cinthya Zarate MD [address] [place] [phone] PCP - General Internal Medicine 06/26/23 documented as of this encounter
[2025-02-17 13:28] LABS: Estimated Average Glucose 126 mg/dL; Hemoglobin A1C 150.6922 umol/L; Total Hemoglobin (HGBA1C) 3589.3791 umol/L
[2025-02-17 13:45] LABS: Alanine Aminotransferase 43 U/L (0-31); Albumin Level 4.2 g/dL (3.5-5.0); Alkaline Phosphatase 74 U/L (39-117); Anion Gap 10 (12-20); Aspartate Amino Transferase 39 U/L (5-31); Bilirubin Total 0.4 mg/dL (0.0-1.0); Blood Urea Nitrogen 18 mg/dL (9-16); Calcium 9.6 mg/dL (8.4-10.2); Carbon Dioxide 31 mmol/L (22-29); Chloride 105 mmol/L (96-108); Cholesterol 187 mg/dL (<200); Estimated Glomerular Filt Rate > 60; Glucose Random 82 mg/dL (60-115); HDL Cholesterol 44 mg/dL (>40); LDL Cholesterol Calculated 114 mg/dL (<100); Sodium 142 mmol/L (135-145); Total Protein 7.8 g/dL (6.5-8.0); Triglycerides 148 mg/dL (<150)
[2025-02-17 14:02] LABS: Vitamin D 25-OH Total 30.8 ng/mL (>30)
[2025-02-18 06:47] LABS: Rubeola IgG (Measles) >300.00 AU/mL
== END 2025-02-17 11:19 | disposition home or self-care (01) ==
LOC: HO.HHCL 11:18
PROVIDERS: Visit Provider Student in an Organized Health Care Education/Training Program
DX: Z00.00 Encounter for general adult medical examination without abnormal findings (principal); R73.03 Prediabetes
CPT/HCPCS: 36415; 80053; 80061; 82306; 83036; 86735; 86762; 86765

== ENCOUNTER 2025-03-03 14:31 | Outpatient (AMB) | payer MEDICAID, SELFPAY ==
--- NOTE | 2025-03-03 15:00 | A.OFFVIS_ITS ---
Vital Signs 03/03/25 15:03 Height 4 ft 8 in Weight 186 lb 15.232 oz BMI 41.9 BP 140/70 H Blood Pressure Location Lt brachial Position Sitting Pulse 77 Pulse Source Monitor Intake Visit Reasons: patient req appt chest tightness,sob Intake Note: pt sob Candy Separator Enrobing Required: Yes Candy Separator Enrobing Language: Preschool Teacher Aide Name: [email or web address] Accompanied by: Self / Same As Patient Allergies No Known Allergies Allergy (Verified 12/02/24 12:40) Medication List - Last Reconciled 03/03/25 by Rome De La Rosa NP amitriptyline 25 mg PO BEDTIME aspirin (Adult Low Dose Aspirin) 81 mg PO DAILY calcium carbonate-vitamin D3 600 mg-5 mcg (200 unit) 1 tab PO DAILY chlorthalidone 50 mg PO DAILY cholecalciferol (vitamin D3) 25 mcg PO DAILY clonazepam 1 mg PO BID gabapentin 300 mg PO BID ketotifen fumarate 0.025%(0.035%) 1 drp ophthalmic (eye) BID PRN lidocaine 4% 1 patch topical DAILY PRN lidocaine 4% 1 appl topical QD-TID PRN loratadine (Claritin) 10 mg PO DAILY magnesium oxide 400 mg PO BEDTIME 30 days metformin 500 mg PO DAILY metoprolol succinate ER 25 mg PO DAILY olmesartan 20 mg PO DAILY omeprazole 20 mg PO DAILY peg 400-propylene glycol (PF) 0.4-0.3 % (Systane (PF)) 1 drp ophthalmic (eye) BID PRN quetiapine ER 150 mg PO BEDTIME rosuvastatin 10 mg PO DAILY sertraline 100 mg PO DAILY HPI Comments Details: This is a 64-year-old female patient coming in for complaints of chest pain and shortness of breath. Patient with a history of hypertension, hyperlipidemia, diabetes, and obesity. Patient was previously seen in the office for chest pains for which patient had undergone ischemic workup there were negative. Patient states that those symptoms had resolved and now for the last 4 months salvador lee has been having chest tightness and shortness of breath associated with this. Patient has noticed that symptoms this time is different as they are more frequent and stronger, however, patient does report that these can happen randomly, with exertion as well as with rest. Patient denies any associated dizziness, palpitations, orthopnea or PND, leg edema, presyncope, or syncope. Patient is affirming compliance with all her medications. [facility] Medical History Cervicalgia Gastritis GERD (gastroesophageal reflux disease) Arthritis Sleep apnea Essential hypertension Cholecystectomy planned History of mitral valve prolapse Hypertension Mild cognitive disorder Carpal tunnel syndrome Spondylosis PTSD (post-traumatic stress disorder) Sciatica Anxiety Depression Diabetes Surgical History History of carpal tunnel release of both wrists History of esophagogastroduodenoscopy (EGD) H/O colonoscopy H/O: hysterectomy Family History Father Cardiomyopathy Mother Bone cancer Brother Atherosclerotic heart disease Social History Household Members: Family Alcohol intake: never Patient Tobacco Use Status: Never used Tobacco Review of Systems Const Denies chills, Denies fatigue, Denies fever(s), Denies frequent falls, Denies weakness, Denies weight gain and Denies weight loss ENT Denies dizziness Card Denies chest pain, Denies leg edema, Denies lightheadedness, Denies palpitations, Denies dyspnea and Denies dyspnea on exertion Resp Denies cough, Denies dyspnea and Denies dyspnea on exertion GI Denies hematochezia Musc Denies abnormal gait, Denies muscle weakness, Denies numbness, Denies radiating pain into limb and Denies tingling Neuro Denies abnormal gait, Denies dizziness, Denies frequent falls, Denies numbness, Denies tingling and Denies weakness Endo Denies fatigue and Denies palpitations Physical Exam Vital Signs: Last Vital Signs Pulse 77 03/03/25 15:03 BP 140/70 H 03/03/25 15:03 BMI result Body Mass Index 41.9 Const General: cooperative, healthy appearing, comfortable and no acute distress Orientation/consciousness: patient oriented x3 HEENT Head: Yes normal to inspection Neck Neck: Yes normal visual inspection, Yes trachea midline and Yes supple Chest Chest palpation & inspection: normal inspection of the chest Resp Effort & Inspection: normal respiratory effort Auscultation: clear to auscultation bilaterally, no crackles, no rales, no rhonchi and no wheezes Cardio Jugular venous distension: no JVD Palpation: normal PMI Rate: regular rate Rhythm: regular rhythm Heart sounds: S1 normal heart sound present, S2 normal heart sound present, no click, no gallops, no murmurs and no rubs Peripheral pulses: Peripheral pulses 2+ throughout GI Inspection: Yes normal to inspection Palpation (GI): Soft to palpation Auscultation: normal bowel sounds Skin General skin exam: no rashes or lesions noted Neuro General: patient oriented x3 Extrem General: Yes normal to inspection, No no pedal edema and No calf tenderness Psych Appearance: grossly normal Mental Status: mental status grossly normal Speech and movement: Normal speech and movement present Office Procedures EKG Details: EKG today showed normal sinus rhythm, rate 77 beats per minute, nonspecific ST T wave abnormalities, [place], [place] [id number], Complete Assessment & Plan Assessment & Plan (1) Chest pain: Code(s): R07.9 - Chest pain, unspecified Category: Medical Plan: 02/20/2022-echo study showed normal LV systolic function with impaired relaxation filling pattern with elevated filling pressures. 02/03/2023-for complaints of chest pain, patient underwent myocardial perfusion study which was normal. Given her ongoing symptoms and multiple risk factors, we will proceed with a coronary CTA to assess for coronary artery disease. Further treatment based on findings. (2) SOB (shortness of breath): Code(s): R06.02 - Shortness of breath Category: Medical Plan: As above. (3) Essential hypertension: Code(s): I10 - Essential (primary) hypertension Category: Medical Plan: Blood pressure today is elevated. However, patient reports that her blood pressures at home has been stable in the 120s systolic. Advised monitoring blo od pressures at home and maintaining a log. Ideally, blood pressure goal less than 130/80. We will have patient return in 1 week to check blood pressure with the nurse. Continue current regimen, patient has history of hypotension in the past. Further adjustments depending on 1 week nurse visit. (4) Hyperlipidemia: Code(s): E78.5 - Hyperlipidemia, unspecified Category: Medical Plan: Patient's LDL is in the 110s. Continue statin therapy. Patient would like to wait to increase her dose until findings from coronary CTA. Ideally, LDL goal less than 70. Advised heart healthy diet, regular exercise, losing weight, med compliance, and aggressive management of vascular risk factors. Follow up in the office after completion of the test. In the interim, patient will call the office with any concerns or change in symptoms. Advised to seek ER care in case of exertional chest pain not resolved with rest. This note was generated using voice recognition software. While every effort has been made to ensure accuracy and proper retail district manager, there may be occasional errors that could affect the content or meaning of the described symptoms. Orders: Orders Basic Metabolic Panel Today R07.9 - Chest pain, unspecified AMB EKG-In Office Today R07.9 - Chest pain, unspecified CT Cardiac Coronary Angio Today R07.9 - Chest pain, unspecified CA echo transthoracic complete Today R06.02 - Shortness of breath, R07.9 - Chest pain, unspecified Coding Level of Care Code Est Pt Level 4 (45635) Complex EM visit Add On G2211 Diagnoses Chest pain R07.9 SOB (shortness of breath) R06.02 Essential hypertension I10 Hyperlipidemia E78.5 CPT Codes EKG - CPT: 00008-[id number], Complete ([id number]) Time Spent (min) 32 Comment Time spent in reviewing the chart, test results, assessment, counseling and documentation.
[2025-03-03 15:03] VITALS: BP 140/70; PULSE 77; BMI 41.9
--- OUTSIDE RECORDS SUMMARY | 2025-03-03 17:10 | XMS_ITS | Encounter Summary ---
Author Organization [employer] Address [address] [facility] 7t [place] [address] Care Team Providers Care Manager Library Name Role Phone Cinthya Zarate MD Primary Care Pro vider Encounter Details Date Type Department Care Team (Late st Contact Info) Description 01/22/2024 Telephone [facility] MEDICINE [address] [place], [place] [phone] Cinthya Zarate MD [address] [place], [place] [phone] Social History Tobacco Use Types Packs/Day Years [...] t he electric, gas, oil or water [employer] threatened to shut off services in your [...] Description 04/15/2025 10:00 AM EDT Office Visit [facility] MEDICINE [address] [place] [address] Cinthya Zarate MD [address] [place] [address] documented as of this encounter Visit Diagnoses Not on filedocumented in this encounter Additional Health Concerns Assessment Noted Time PHQ-9 Depression Total Score: 11 023 10:13 AM EDT documented as of this encounter Care Teams Manager Library Relationship Specialty Start Date End Date Cinthya Zarate MD [address] [place] [phone] PCP - General Internal Medicine 06/26/23 documented as of this encounter
== END 2025-03-03 15:37 | disposition home or self-care (01) ==
LOC: HO.HCS 14:31
PROVIDERS: PCP Student in an Organized Health Care Education/Training Program
DX: R07.9 Chest pain, unspecified (principal); R06.02 Shortness of breath; I10 Essential (primary) hypertension; E78.5 Hyperlipidemia, unspecified
CPT/HCPCS: 93010; 99214

== ENCOUNTER → 2025-03-03 14:31 | Outpatient (BNVA) | payer MEDICAID, SELFPAY | PROVIDERS: PCP Student in an Organized Health Care Education/Training Program | DX: I10 Essential (primary) hypertension (principal); R06.02 Shortness of breath; R07.9 Chest pain, unspecified; E78.5 Hyperlipidemia, unspecified; E11.9 Type 2 diabetes mellitus without complications; E66.9 Obesity, unspecified; Z68.41 Body mass index [BMI] 40.0-44.9, adult | CPT/HCPCS: 93005; 99212 ==

== ENCOUNTER → 2025-03-11 09:48 | Outpatient (BNVA) | payer MEDICAID, SELFPAY | PROVIDERS: PCP Student in an Organized Health Care Education/Training Program ==

== ENCOUNTER 2025-03-18 11:00 | Outpatient (RCR) | payer MEDICAID, MEDICARE, SELFPAY ==
--- NOTE | 2025-02-10 15:15 | MHC.PT.EP ---
[facility] [place] Office [place] Office [place] Office [address]es [address] [phone] F: [phone] F: [phone] F: [phone] F: [phone] Physical Therapy Plan of Care Date of Evaluation: 02/10/25 Date of Surgery: Diagnosis: cervicalgia Assessment: 64 y/o R-hand dominant female referred to PT with cervicalgia. At this time, reports pain and difficulty with sleeping, R sidelying, lifting, carrying, reaching, and bending. Of note, PMH significant for HTN, anxiety, and DM. Examination shows decreased cervical AROM, decreased shoulder strength, pain, and impaired postural awareness. Recommend PT 1x/week for 6 weeks to address impairments, implement HEP, and optimize functional mobility. Frequency and Duration: The patient will be seen 1x/week for 6 weeks Short Term Goals: 3 weeks I with HEP Alf Goals: 6 weeks I with HEp and self management of Pt will be able to sleep through 50% of the night with pain <3.10 Pt will improve NDI to 37/45 Treatment Plan: Modalities to reduce pain, spasms and effusion. Manual therapy to restore motion and function. Therapeutic exercise to improve strength and flexibility. Neuromuscular re-education for posture and balance. Therapeutic activities to return to functional activities of daily living. Electronically signed by: Amanda Suarez PT Please sign and return to therapist. Thank you for your referral.
--- NOTE | 2025-04-18 10:57 | MHC.PT.DC ---
[facility] [place] [facility] [place] Office [place] Office [address] Jori Montes [address] [phone] F: [phone] F: [phone] F: [phone] F: [phone] Physical Therapy Discharge Report Diagnosis: cervicalgia Date of Surgery: Date of Evaluation: 02/10/25 Date of Discharge: 04/18/25 Treatments to Date: 4 Cancellations to Date: 3 No Shows to Date: 0 Discharge Status: Independent with HEP Visit Non-compliance Discharge Summary: Pt with varied attendance during course of therapy, however slightly decreased pain and I with HEP at time of last appointment. D/c at this time Electronically signed by: Amanda Suarez PT Please sign and return to therapist. Thank you for your referral.
== END 2025-04-18 10:57 | disposition home or self-care (01) ==
LOC: HO.PT 11:00
PROVIDERS: PCP Student in an Organized Health Care Education/Training Program; Visit Provider Psychiatry & Neurology Neurology
DX: M54.2 Cervicalgia (principal)
CPT/HCPCS: 97110; 97140; 97162

== ENCOUNTER 2025-04-07 08:13 | Outpatient (REF) | payer MEDICARE, MEDICAID, SELFPAY ==
--- OUTSIDE RECORDS SUMMARY | 2025-04-07 08:20 | XMS_ITS | Referral Summary ---
Author Organization [facility] Address [address] [place] [address] Care Team Providers Care Unit Assembler Name Role Phone Rosalinda Levine Primary Care Provider [phone] Allergies No known active allergies Medications lidocaine-menth [...] Plan of Treatment Not on file Insurance [place] [id number] [facility] Care Teams Unit Assembler Relationship Specialty Start Date End Date DimitrichrisdominiqueRosalinda [address] [place] [address] PCP - General 09/26/21
--- OUTSIDE RECORDS SUMMARY | 2025-04-07 08:20 | XMS_ITS | Encounter Summary ---
Author Organization [employer] Address 75 [facility] 7t [place] [address] Care Team Providers Care Body Shop Mechanic Name Role Phone Cinthya Zarate MD Primary Care Pro vider Encounter Details Date Type Department Care Team (Late st Contact Info) Description 01/22/2024 Telephone [facility] MEDICINE [address] [place], [place] [phone] Cinthya Zarate MD [address] [place], [place] [phone] Social History Tobacco Use Types Packs/Day Years [...] t he electric, gas, oil or water [employer] threatened to shut off services in your [...] Description 04/15/2025 10:00 AM EDT Office Visit [facility] MEDICINE [address] [place] [address] Cinthya Zarate MD [address] [place] [address] documented as of this encounter Visit Diagnoses Not on filedocumented in this encounter Additional Health Concerns Assessment Noted Time PHQ-9 Depression Total Score: 11 023 10:13 AM EDT documented as of this encounter Care Teams Body Shop Mechanic Relationship Specialty Start Date End Date Cinthya Zarate MD [address] [place] [phone] PCP - General Internal Medicine 06/26/23 documented as of this encounter
[2025-04-07 12:55] LABS: Alanine Aminotransferase 29 U/L (0-31); Albumin Level 4.1 g/dL (3.5-5.0); Alkaline Phosphatase 61 U/L (39-117); Anion Gap 11 (12-20); Aspartate Amino Transferase 35 U/L (5-31); Blood Urea Nitrogen 13 mg/dL (9-16); Calcium 9.2 mg/dL (8.4-10.2); Carbon Dioxide 29 mmol/L (22-29); Chloride 105 mmol/L (96-108); Estimated Glomerular Filt Rate > 60; Potassium 4.0 mmol/L (3.3-5.1); Sodium 141 mmol/L (135-145); Total Protein 7.5 g/dL (6.5-8.0)
[2025-04-07 13:24] LABS: CT PCR Urine NOT DETECTED (Not Detect.); NG PCR Urine NOT DETECTED (Not Detect.)
== END 2025-04-07 08:14 | disposition home or self-care (01) ==
LOC: HO.HHCL 08:13
PROVIDERS: PCP Student in an Organized Health Care Education/Training Program; Visit Provider Student in an Organized Health Care Education/Training Program
DX: Z00.00 Encounter for general adult medical examination without abnormal findings (principal); R74.01 Elevation of levels of liver transaminase levels
CPT/HCPCS: 36415; 80053; 87491; 87591

== ENCOUNTER → 2025-04-12 10:48 | Outpatient (REF) | payer MEDICARE, MEDICAID, SELFPAY ==
--- NOTE | 2025-04-12 10:52 | CA_ITS ---
Transthoracic Echocardiogram Patient (Last, First, Middle): Hilaria Michael, Gender: Female Date of : 1960 Age: 65 Procedure Date: 04/12/2025 Procedure Type: Transthoracic Echocardiogram Location: OP Height: 152.4 cm Weight: 84.37 kg BSA: 1.81 m2 Heart Rate: bpm BP: 130 / 80 mmHg Content Strategist: SYD Referring MD: Rome De La Rosa SALES RECRUITING COORDINATOR Symptoms: R07.9 - Chest pain, unspecified Study Quality: Good ECG Rhythm: Sinus Conclusions: - The left ventricular systolic function is normal. The visually estimated ejection fraction is between 55-60%. - No obvious valvular pathology seen on this study. Findings Left Ventricle Normal left ventricular cavity size. There is mildly increased left ventricular wall thickness. The left ventricular systolic function is normal. The visually estimated ejection fraction is between 55-60%. There is no evidence of regional wall motion abnormalities. Evidence suggests grade I (mild) diastolic dysfunction. Right Ventricle Normal right ventricular cavity size and systolic function. Atria Both atria are normal in size. Aortic Valve There is a normal trileaflet aortic valve. There is no aortic valve stenosis. There is no aortic valve regurgitation. Mitral Valve The mitral valve appears normal. There is trace mitral valve regurgitation. There is no mitral valve stenosis. Pulmonic Valve There is trace pulmonic valve regurgitation. Tricuspid Valve Normal tricuspid valve structure. There is trace tricuspid valve regurgitation. There is no evidence of pulmonary hypertension. Great Vessels The asc aorta is normal in size. Venous The inferior vena cava is normal in size and collapses greater than 50% with inspiration. Pericardium/Pleural There is no evidence of pericardial effusion. Prior Study Comparison No significant change compared to prior study dated: 02/20/2022. Recommendations, Care & Conclusions No obvious valvular pathology seen on this study. Measurements 2D Linear Measurements IVSd: 1.26 0.6-0.9/0.6-1.0 cm LVIDd: 4.58 3.9-5.3/4.2-5.9 cm LVIDd Index: 2.53 2.4-3.2/2.2-3.1 cm/m2 LVIDs: 2.90 2.0-3.6 cm LVPWd: 1.28 0.7-1.1 cm Ao Root: 3.40 2.1-3.5 cm LA Diam: 4.10 2.7-3.8/3.0-4.0 cm LAIDs Index: 2.27 1.5-2.3 cm/m2 LV Mass: 275.47 67-162/88-224 g LV Mass Index: 152.19 43-95/49-115 g/m2 LVOT Diam: 2.00 3.0+(-)1.3 cm 2D Systolic Function EF 4C: 55.90 >55% EF 2C: 65.50 >55% EF BiP: 60.00 >55% Mitral Valve MV Pk E: 0.78 MV PK A: 1.01 MV Decel Time: 207.00 E/A: 0.80 E'Lateral: 6.85 E'Medial: 3.92 E/E' Med: 20.00 E/E' Lat: 11.40 PHT: 61.00 MVA PHT: 3.61 Decel Shackelford: 3.79 Aortic Valve AoV Pk Vincent: 1.33 AoV Mn Vincent: 0.76 AoV VTI: 0.29 AoV Pk Grad: 7.00 Aov Mn Grad: 3.00 DAVID Cont.VTI: 2.69 LVOT LVOT Pk Vincent: 1.02 LVOT Mn Vincent: 0.63 LVOT VTI: 0.25 LVOT Pk Grad: 4.00 LVOT Mn Grad: 2.00 LVOT Diam: 2.00 LVOT Area: 3.14 Diastolic Function MV Pk E: 0.78 MV Pk A: 1.01 E/A: 0.80 E'Medial: 3.92 E/E' Med: 20.00 E' Laterial: 6.85 E/E' Lat: 11.40 Right Ventricle TAPSE (mm): 22.00 Tricuspid Valve TR Pk Vincent: 2.23 TR Pk Grad: 20.00 RA Press: 3.00 RVSP: 23.00 Great Vessels Aorta Ao Root-2D: 3.40 2.0-3.7 cm Ao Asc: 3.60 2.1-3.4 cm Pulmonary Valve PV Pk Vincent: 0.82 Peak PV Grad: 3.00 Updated in Other Vendor System with Status of Final Kalyan Ignacio MD electronically signed on 04/14/2025 10:10:30 AM with status of Final
--- OUTSIDE RECORDS SUMMARY | 2025-04-12 12:08 | XMS_ITS | Referral Summary ---
Author Organization [facility] Address [address] [place] [address] Care Team Providers Care Customer Engagement Manager Name Role Phone Rosalinda Levine Primary Care Provider [phone] Allergies No known active allergies Medications lidocaine-menth [...] Plan of Treatment Not on file Insurance [place] [id number] [facility] Care Teams Customer Engagement Manager Relationship Specialty Start Date End Date DimitrichrisdominiqueRosalinda [address] [place] [id number] PCP - General 09/26/21
--- OUTSIDE RECORDS SUMMARY | 2025-04-12 12:08 | XMS_ITS | Encounter Summary ---
Author Organization [employer] Address [address] [facility] 7t [place] [address] Care Team Providers Care Stone Sandblaster Name Role Phone Cinthya Zarate MD Primary Care Pro vider Encounter Details Date Type Department Care Team (Late st Contact Info) Description 04/07/2025 Orders Only [facility] [address] [place], [place] [phone] Cinthya Zarate MD [address] [place], [place] [phone] Social History Tobacco Use Types Packs/Day Years [...] Upcoming Encounters Date Type Department Care Team ([facility] st Contact Info) Description 04/15/2025 10:00 AM EDT Office Visit [facility] [address] [place] [address] Cinthya Zarate MD [address] [place] [address] documented as of this encounter Procedures Procedure Name Priority Date/Time Associated Diagnosis Comments CHLAMYDIA/TRICHOMON /NEISSERIA GONORRHOEAE, PCR, URINE Routine 04/07/2025 8:17 AM EDT documented in this encounter Results * Chlamydia/Trichomonas/Neisseria gonorrhoeae, PCR, Urine (04/07/2025 8:17 AM EDT) [facility] CT PCR, Urine NOT DETECTED Not Detect. [facility] Comment:A not detected test result does not exclude the possibilityof infection because test results can be affected byimproper specimen collection, concurrent antibiotic therapy,or the number of organisms in the specimen which may bebelow the sensitivity of the test. As with many diagnostictests, results from the Xpert CT/NG assay should beinterpreted in conjunction with other laboratory andclinical data available to the clinician.The Xpert CT/NG assay should not be used for the evaluationof suspected sexual abuse or for other medico-legalindications. Additional testing is recommended in anycircumstance when false positive or false negative resultscould lead to adverse medical, social or psychologicalconsequences. NG PCR, Urine NOT DETECTED Not Detect. [facility] Comment:A not detected test result does not exclude the possibilityof infection because test results can be affected byimproper specimen collection, concurrent antibiotic therapy,or the number of organisms in the specimen which may bebelow the sensitivity of the test. As with many diagnostictests, results from the Xpert CT/NG assay should beinterpreted in conjunction with other laboratory andclinical data available to the clinician.The Xpert CT/NG assay should not be used for the evaluationof suspected sexual abuse or for other medico-legalindications. Additional testing is recommended in anycircumstance when false positive or false negative resultscould lead to adverse medical, social or psychologicalconsequences. 04/07/2025 8:17 AM EDT 04/07/2025 11:49 AM EDT us Cinthya Montoya MD LAB URINE ORDERAB LES Final Result [facility] [address] [place] [phone] documented in this encounter Visit Diagnoses Not on filedocumented in this encounter Additional Health Concerns Assessment Noted Time PHQ-9 Depression Total Score: 7 02/17/20 25 10:26 AM EDT documented as of this encounter Care Teams Stone Sandblaster Relationship Specialty Start Date End Date Cinthya Zarate MD [address] [place] [phone] PCP - General Internal Medicine 06/26/23 documented as of this encounter
== END ==
LOC: HO.CARD 10:48
PROVIDERS: PCP Student in an Organized Health Care Education/Training Program
DX: R07.9 Chest pain, unspecified (principal); R06.02 Shortness of breath
CPT/HCPCS: 93306

== ENCOUNTER → 2025-04-12 10:52 | Outpatient (BNV) | payer MEDICARE, MEDICAID, SELFPAY | PROVIDERS: PCP Student in an Organized Health Care Education/Training Program; Visit Provider Internal Medicine | DX: I51.89 Other ill-defined heart diseases (principal); R07.9 Chest pain, unspecified | CPT/HCPCS: 93306 ==

== ENCOUNTER 2025-04-14 12:24 | Outpatient (AMB) | payer MEDICARE, MEDICAID, SELFPAY ==
--- NOTE | 2025-04-14 12:34 | MHC.OFFVIS ---
Vital Signs 04/14/25 12:35 Height 4 ft 8 in Weight 189 lb 2 oz BMI 42.4 BP 140/92 H Blood Pressure Location Lt brachial Position Sitting Pulse 72 Pulse Source Pulse Oximeter Pulse Oximetry (%) 96 Oxygen Delivery Method Room Air Intake Visit Reasons: 4 mo follow up Intake Note: Patient presents follow up SILVANO. compliance in chart. patient states has not got new chip for the CPAP. Senior Qc Technician Required: Yes Senior Qc Technician Services: Senior Qc Technician Present Senior Qc Technician Name: Sandi [id number] Information Interpreted: non-clinical & clinical Accompanied by: Self / Same As Patient Allergies No Known Allergies Allergy (Verified 04/14/25 12:39) Medication List - Last Reconciled 04/14/25 by Purvi Armas MD amitriptyline 25 mg PO BEDTIME aspirin (Adult Low Dose Aspirin) 81 mg PO DAILY calcium carbonate-vitamin D3 600 mg-5 mcg (200 unit) 1 tab PO DAILY chlorthalidone 50 mg PO DAILY cholecalciferol (vitamin D3) 25 mcg PO DAILY clonazepam 1 mg PO BID gabapentin 300 mg PO BID ketotifen fumarate 0.025%(0.035%) 1 drp ophthalmic (eye) BID PRN lidocaine 4% 1 patch topical DAILY PRN lidocaine 4% 1 appl topical QD-TID PRN loratadine (Claritin) 10 mg PO DAILY magnesium oxide 400 mg PO BEDTIME 30 days metformin 500 mg PO DAILY metoprolol succinate ER 25 mg PO DAILY olmesartan 20 mg PO DAILY omeprazole 20 mg PO DAILY peg 400-propylene glycol (PF) 0.4-0.3 % (Systane (PF)) 1 drp ophthalmic (eye) BID PRN quetiapine ER 150 mg PO BEDTIME rosuvastatin 10 mg PO DAILY sertraline 100 mg PO DAILY HPI Comments Details: 65 y/o female patient presents for follow up of SILVANO on CPAP. she is compliant and uses it everyday . she sleep better and her daytime symptoms improved. 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 . [facility] Medical History Cervicalgia Gastritis GERD (gastroesophageal reflux disease) Arthritis Sleep apnea Essential hypertension Cholecystectomy planned History of mitral valve prolapse Hypertension Mild cognitive disorder Carpal tunnel syndrome Spondylosis PTSD (post-traumatic stress disorder) Sciatica Anxiety Depression Diabetes Surgical History History of carpal tunnel release of both wrists History of esophagogastroduodenoscopy (EGD) H/O colonoscopy H/O: hysterectomy Family History Father Cardiomyopathy Mother Bone cancer Brother Atherosclerotic heart disease Social History Household Members: Family Alcohol intake: never Patient Tobacco Use Status: Never used Tobacco Physical Exam Vital Signs: Last Vital Signs Pulse 72 04/14/25 12:35 BP 140/92 H 04/14/25 12:35 Pulse Ox 96 04/14/25 12:35 Oxygen Delivery Method Room Air 04/14/25 12:35 BMI result Body Mass Index 42.4 Const General: cooperative Nutritional Appearance: obese Orientation/consciousness: patient oriented x3 Limitations: language barrier Neck Neck: Yes full ROM and Yes supple Resp Effort & Inspection: normal respiratory effort and able to speak in complete sentences Neuro Other: Right Neck tightness and pain General: patient oriented x3 Cognition (Neuro): normal cognition Gait exam (Neuro): Normal gait present Motor exam (neuro): 5/5 motor strength present throughout, Pronator motor function not present and no tremor noted Psych Appearance: grossly normal Mental Status: mental status grossly normal Speech and movement: Normal speech and movement present Affect: normal affect Attitude: cooperative Assessment & Plan Assessment & Plan (1) Obstructive sleep apnea: Comment: Severe degree of sleep apnea. The AHI was 27/hr and oxygen paul was 81% Code(s): G47.33 - Obstructive sleep apnea (adult) (pediatric) Category: Medical (2) Pressure in head: Code(s): R51.9 - Headache, unspecified Category: Medical (3) Cervicalgia: Code(s): M54.2 - Cervicalgia Category: Medical Plan Continue to use CPAP at [id number] as patient experiences good clinical effects. MRI brain - nonfocal Continue magnesium 400 mg qHS for neck pain and headache prevention. continue neck exercises Coding Level of Care Code Est Pt Level 4 (49757) Complex EM visit Add On G2211 Diagnoses Obstructive sleep apnea G47.33 Pressure in head R51.9 Cervicalgia M54.2
[2025-04-14 12:35] VITALS: BP 140/92; PULSE 72; O2SAT 96; BMI 42.4
--- OUTSIDE RECORDS SUMMARY | 2025-04-14 12:54 | XMS_ITS | Referral Summary ---
Author Organization [facility] Address [address] [place] [address] Care Team Providers Care Rehabilitation Services Manager Name Role Phone Rosalinda Levine Primary Care Provider [phone] Allergies No known active allergies Medications lidocaine-menth [...] Plan of Treatment Not on file Insurance [place] [employer] [id number] [facility] Care Teams Rehabilitation Services Manager Relationship Specialty Start Date End Date DimitrichrisdominiqueoRsalinda [address] [place] [address] PCP - General 09/26/21
--- OUTSIDE RECORDS SUMMARY | 2025-04-14 12:54 | XMS_ITS | Encounter Summary ---
Author Organization [employer] Address [address] [facility] 7t [place] [address] Care Team Providers Care Commercial Crabber Name Role Phone Cinthya Zarate MD Primary Care Pro vider Encounter Details Date Type Department Care Team (Late st Contact Info) Description 01/22/2024 Telephone [facility] [address] [place], [place] [phone] Cinthya Zarate MD [address] [place], [place] [phone] Social History Tobacco Use Types Packs/Day Years [...] t he electric, gas, oil or water [employer]) threatened to shut off services in your [...] Description 04/15/2025 10:00 AM EDT Office Visit [facility] [address] [place] [address] Cinthya Zarate MD [address] [place] [address] documented as of this encounter Visit Diagnoses Not on filedocumented in this encounter Additional Health Concerns Assessment Noted Time PHQ-9 Depression Total Score: 11 023 10:13 AM EDT documented as of this encounter Care Teams Commercial Crabber Relationship Specialty Start Date End Date Cinthya Zarate MD [address] [place] [address] PCP - General Internal Medicine 06/26/23 documented as of this encounter
== END 2025-04-14 13:10 | disposition home or self-care (01) ==
LOC: HO.HSMS 12:24
PROVIDERS: Visit Provider Psychiatry & Neurology Neurology
DX: G47.33 Obstructive sleep apnea (adult) (pediatric) (principal); R51.9 Headache, unspecified; M54.2 Cervicalgia
CPT/HCPCS: 99214

== ENCOUNTER → 2025-04-14 12:24 | Outpatient (BNVA) | payer MEDICARE, MEDICAID, SELFPAY | PROVIDERS: Visit Provider Psychiatry & Neurology Neurology | DX: G47.33 Obstructive sleep apnea (adult) (pediatric) (principal); R51.9 Headache, unspecified | CPT/HCPCS: 99212 ==

== ENCOUNTER 2025-05-05 10:11 | Outpatient (REF) | payer MEDICARE, MEDICAID, SELFPAY ==
--- OUTSIDE RECORDS SUMMARY | 2025-05-05 10:41 | XMS_ITS | Clinical Summary ---
Author Organization [facility] Address [address] [address] Phone Care Team Providers Care Reed Dipper Name Role Phone Rosalinda Levine DM Primary Care Provider [phone] Social History Tobacco Use Types Packs/Day Years Used Date Smoking Tobacco: Never Assessed Education Answer Date Recorded Are you interested in more education? Not on cammie e 01/23/2023 Are you concerned about learning? Not on file 01/23/2023 No 01/23/2023 No 01/23/2023 Digital Access Answer Date Recorded No 02/24/2023 No 02/24/2023 No 02/24/2023 Reliable internet access at home? Not on file 02/24/2023 Device with a working camera? Not on file Comments Unknown Sex and Gender Information Value Date Recorded Sex Assigned at Not on file Legal Sex Female 9:49 PM EDT Gender Identity Not on file Sexual Orientation Not on file Plan of Treatment Health Maintenance Due Date Last Done Comments Adult Td,Tdap Booster 1960 LIPID PANEL 1960 DEPRESSION SCREENING 1972 SMOKING Hx and SMOKELESS TOB ACCO SCREENING 1973 HEPATITIS C SCREENING 1978 HIV ONE-TIME SCREENING (18-6 5 YEARS) 1978 MAMMOGRAM 2000 COLOGUARD 2005 COLONOSCOPY 2005 COLORECTAL CANCER SCREENING 2005 FIT TEST 2005 FOBT 2005 SIGMOIDOSCOPY 2005 VIRTUAL COLONOSCOPY 2005 PNEUMOCOCCAL VACCINES (50+ y ears) (1 of 1 - PCV) 2010 ZOSTER VACCINES (1 of 2) 2010 COVID-19 VACCINE (2023-2 5 season) 2024 OSTEOPOROSIS SCREENING INITI AL (ONE-TIME) 2025 RSV VACCINE (1 - 1-dose 75+ series) 2035 HEPATITIS A VACCINES Aged Out No long er eligible based on patient's age to complete this topic HIB VACCINES Aged Out No longer eligi ble based on patient's age to complete this topic MENINGOCOCCAL VACCINES (ACWY) Aged Out No longer eligible based on patient's age to complete this topic MENINGOCOCCAL VACCINES (B) Aged Out N o longer eligible based on patient's age to complete this topic Medical Devices Not on file [place] [address] [address] [address] [facility] [place] [facility] [place] [address] [place] [address] [facility] [id number] [facility] Care Teams Reed Dipper Relationship Specialty Start Date End Date Rosalinda Levine NP PCP - General 09/10/21 Additional Source Comments The information contained in this document represents components of the legal health record. It is not the complete legal health record.[facility]
--- OUTSIDE RECORDS SUMMARY | 2025-05-05 10:41 | XMS_ITS | Encounter Summary ---
Author Organization [employer] Address [address] [facility] 7t [place] [address] Care Team Providers Care C2 Tactical Analysis Technician Name Role Phone Cinthya Zarate MD Primary Care Pro vider Reason for Visit * Reason Comments Med Refill Encounter Details Date Type Department Care Team ([facility] st Contact Info) Description 05/02/2025 Refill [facility] [address] [place], [place] [phone] Shadia Weir MD [address] [place], [place] [phone] Social History Tobacco Use Types Packs/Day Years [...] as of this encounter Plan of Treatment Not on file documented as of this encounter Visit Diagnoses Not on filedocumented in this encounter Additional Health Concerns Assessment Noted Time PHQ-9 Depression Total Score: 7 02/17/20 25 10:26 AM EDT documented as of this encounter Care Teams C2 Tactical Analysis Technician Relationship Specialty Start Date End Date Cinthya Zarate MD [address] [place] [phone] PCP - General Internal Medicine 06/26/23 documented as of this encounter
--- OUTSIDE RECORDS SUMMARY | 2025-05-05 10:41 | XMS_ITS | Referral Summary ---
Author Organization [facility] Address [address] [place] [address] Care Team Providers Care Restaurant Floor Manager Name Role Phone Rosalinda Levine Primary Care Provider [phone] Allergies No known active allergies Medications lidocaine-menth [...] Plan of Treatment Not on file Insurance [place] [id number] [facility] Care Teams Restaurant Floor Manager Relationship Specialty Start Date End Date DimitrichrisdominiqueRosalinda [address] [place] [id number] PCP - General 09/26/21
[2025-05-05 11:31] LABS: Anion Gap 9 (12-20); Blood Urea Nitrogen 11 mg/dL (9-16); Calcium 8.9 mg/dL (8.4-10.2); Carbon Dioxide 31 mmol/L (22-29); Chloride 106 mmol/L (96-108); Estimated Glomerular Filt Rate > 60; Potassium 4.0 mmol/L (3.3-5.1); Sodium 142 mmol/L (135-145)
== END 2025-05-05 10:12 | disposition home or self-care (01) ==
LOC: HO.LAB 10:11
PROVIDERS: PCP Student in an Organized Health Care Education/Training Program
DX: R07.9 Chest pain, unspecified (principal)
CPT/HCPCS: 36415; 80048

== ENCOUNTER 2025-06-24 09:31 | Outpatient (AMB) | payer MEDICARE, MEDICAID, SELFPAY ==
[2025-06-24 09:42] VITALS: BMI 42.4
--- NOTE | 2025-06-24 09:42 | MHC.OFFVIS ---
Vital Signs 06/24/25 09:42 Height 4 ft 8 in Weight 189 lb BMI 42.4 Intake Visit Reasons: New prob-Lt trigger 4th digit Intake Note: Hilaria is a 65 year old right hand dominant female who presents today for a new problem visit with complaints of Left Ring Finger locking and catching that has been ongoing for 8+ months now. Pateint describes pain as a current . Patient reports she has been massaging the palm of the hand. She has not tried injectons or therapy. She also complains of bilateral hand carpal tunnel s/p Bilateral Carpal Tunnel Release. She denies any injuries to the left hand. Patient has a history of Pre-Diabetes. She is currently on Metformin and checking sugars daily. Water Control Station Engineer Required: Yes Water Control Station Engineer Language: Tool Lathe Operator Name: [id number] Allergies No Known Allergies Allergy (Verified 06/24/25 09:44) HPI HPI New prob-Lt trigger 4th digit: Details: Hilaria is a 65 year old right hand dominant female who presents today for a new problem visit with complaints of Left Ring Finger locking and catching that has been ongoing for 8+ months now. Pateint describes pain as a current . Patient reports she has been massaging the palm of the hand. She has not tried injectons or therapy. She also complains of bilateral hand carpal tunnel s/p Bilateral Carpal Tunnel Release. She denies any injuries to the left hand. Patient has a history of Pre-Diabetes. She is currently on Metformin and checking sugars daily. [facility] Medical History (Updated 06/24/25 @ 16:52 by KHANH Miner) Cervicalgia Gastritis GERD (gastroesophageal reflux disease) Arthritis Sleep apnea Essential hypertension Cholecystectomy planned History of mitral valve prolapse Hypertension Mild cognitive disorder Carpal tunnel syndrome Spondylosis PTSD (post-traumatic stress disorder) Sciatica Anxiety Depression Diabetes Surgical History (Updated 06/24/25 @ 09:48 by ALAN Frausto) History of cholecystectomy History of carpal tunnel release of both wrists History of esophagogastroduodenoscopy (EGD) H/O colonoscopy H/O: hysterectomy Family History Father Cardiomyopathy Mother Bone cancer Brother Atherosclerotic heart disease Social History (Updated 06/24/25 @ 09:48 by ALAN Frausto) Household Members: Family Alcohol intake: never Patient Tobacco Use Status: Never used Tobacco Current occupational status: unemployed Current occupation: rt handed Review of Systems Const All systems reviewed & are unremarkable except as noted in HPI and below Physical Exam Vital Signs: BMI result Body Mass Index 42.4 Extrem Other: Patient is alert, oriented, and in no acute distress. Neuro: Normal sensation of the tips of all digits of the left hand at this time Vascular: Cap refill brisk Pain: Tenderness to A1 ismael of the left ring finger Pain with locking catching ROM: Visible and palpable locking and catching of the left ring finger in a flexed position Skin: No lacerations or abrasions. General: No ecchymosis, erythema, or evidence of infection. Psych: Appears grossly normal Affect normal Attitude cooperative Office Procedures AMB Tendon Injection Tendon Injection [id number] Tendon Sheath Injection All charges added?: Procedure code (CPT) selection complete Assessment & Plan Assessment & Plan (1) Trigger finger, left ring finger: Code(s): M65.342 - Trigger finger, left ring finger Category: Medical Plan 1. Left ring finger trigger finger Patient is educated about this condition and the treatment options available Patient would like to proceed with steroid injection The risks and benefits of a steroid injection including but not limited to risk of damage to blood vessels, nerves, tendons, infection, skin bleaching, failure to improve symptoms, increased pain, and possible need for further injections or other intervention were discussed with the patient and the patient wishes to proceed with the steroid injection. Once consent was obtained, I sterilely prepped the area over the A1 ismael of the flexor tendon sheath of the left ring finger. I then injected the flexor tendon sheath with a combination of 1 mL of dexamethasone (4mg/ml), and 1% lidocaine. The patient tolerated the procedure well with no complications. If the patient continues to have locking and catching 4-6 weeks following this injection, they may call to schedule appointment to discuss alternative treatment options Follow-up prn Coding Level of Care Code New Pt Level 3 (89686) Diagnoses Trigger finger, left ring finger M65.342 CPT Codes Tendon Injection - Tendon Injection 1: [id number] Tendon Sheath Injection ([id number])
--- OUTSIDE RECORDS SUMMARY | 2025-06-24 10:30 | XMS_ITS | Encounter Summary ---
Author Organization [employer] Address [address] [facility] 7t [place] [address] Care Team Providers Care Tube Backer Name Role Phone Cinthya Zarate MD Primary Care Pro vider Reason for Visit * Reason Comments Med Refill Encounter Details Date Type Department Care Team ([facility] st Contact Info) Description 12/18/[address] [facility] MED[facility]INE [address] [place], [place] [phone] [facility] [address] [place], [place] [phone] Essential hypertension Social History Tobacco Use Types [...] Care Team (Late st Contact Info) Description 07/21/2025 9:00 AM EDT Office Visit [facility] [address] [place] [phone] Cinthya Zarate MD [address] [place] [address] documented as of this encounter Visit Diagnoses Diagnosis Essential hypertension Unspecified essential hypertension documented in this encounter Additional Health Concerns Assessment Noted Time PHQ-9 Depression Total Score: 19 024 10:09 AM EDT documented as of this encounter Care Teams Tube Backer Relationship Specialty Start Date End Date Cinthya Zarate MD [address] [place] [address] PCP - General Internal Medicine 06/26/23 documented as of this encounter
--- OUTSIDE RECORDS SUMMARY | 2025-06-24 10:30 | XMS_ITS | Encounter Summary ---
Author Organization [employer] Address [address] [facility] 7 [place] [address] Care Team Providers Care Shift Supervisor Rn Name Role Phone Cinthya Zarate MD Primary Care Pro vider Reason for Visit * Reason Comments Med Change Request Encounter Details Date Type Department Care Team ([facility] Contact Info) Description 05/23/2025 Refill [facility] MEDICINE [address] [place], [place] [phone] Cinthya Zarate MD [address] [place], [place] [phone] Essential hypertension; Obesity (BMI 30-39.9); Obstructive sleep apnea syndrome Social History Tobacco Use Types Packs/Day Years [...] Description 07/21/2025 9:00 AM EDT Office Visit [facility] [address] [place] [address] Cinthya Zarate MD [address] [place] [address] documented as of this encounter Visit Diagnoses Diagnosis Essential hypertension Unspecified essential hypertension Obesity (BMI 30-39.9) Obstructive sleep apnea syndrome Obstructive sleep apnea (adult) (pediatric) documented in this encounter Additional Health Concerns Assessment Noted Time PHQ-9 Depression Total Score: 7 02/17/20 25 10:26 AM EDT documented as of this encounter Care Teams Shift Supervisor Rn Relationship Specialty Start Date End Date Cinthya Zarate MD [address] [place] [address] PCP - General Internal Medicine 06/26/23 documented as of this encounter
--- OUTSIDE RECORDS SUMMARY | 2025-06-24 10:30 | XMS_ITS | Encounter Summary ---
Author Organization [employer] Address 75 [facility] [address] [place] [address] Care Team Providers Care Geologist Name Role Phone Cinthya Zarate MD Primary Care Pro vider Reason for Visit * Reason Comments Med Change Request Encounter Details Date Type Department Care Team ([facility] Contact Info) Description 05/18/2025 Telephone [facility]INE [address] [place], [place] [phone] Cinthya Zarate MD [address] [place], [place] [phone] Med Change Request Social History Tobacco Use Types Packs/Day Years [...] encounter Miscellaneous Notes * Telephone Encounter - Maria L Bose - 05/24/2025 11:29 AM EDT PA initiated on Covermymeds for Zepbound 5mg. Approval/denial pending. Gann: [id number]. * Telephone Encounter - Larisa Kay - 05/23/2025 3:48 PM EDT Tc from pt Daughter requesting a call back for clarification on status on medication Contact pt Daughter at [phone] * Telephone Encounter - Sabine Quezada RN - 05/18/2025 3:42 PM EDT Telephone call placed to pt's [facility]. Spoke with pharmacist Lila who reports pt picked up zepbound 2.5mg 04/25/25. That was the first time that she had ever filled Zepbound. documented in this encounter Plan of Treatment Upcoming Encounters Date Type Department Care Team (Late st Contact Info) Description 07/21/2025 9:00 AM EDT Office Visit [facility] [address] [place] [address] Cinthya Zarate MD [address] [place] [address] documented as of this encounter Visit Diagnoses Not on filedocumented in this encounter Additional Health Concerns Assessment Noted Time PHQ-9 Depression Total Score: 7 02/17/20 25 10:26 AM EDT documented as of this encounter Care Teams Geologist Relationship Specialty Start Date End Date Cinthya Zarate MD [address] [place] [address] PCP - General Internal Medicine 06/26/23 documented as of this encounter
--- OUTSIDE RECORDS SUMMARY | 2025-06-24 10:30 | XMS_ITS | Encounter Summary ---
Author Organization [employer] Address 75 [facility] 7 [place] [address] Care Team Providers Care Anode Crew Supervisor Name Role Phone Cinthya Zarate MD Primary Care Pro vider Reason for Visit * Reason Comments Med Refill Encounter Details Date Type Department Care Team ([facility] st Contact Info) Description 10/01/2024 Refill [facility] MEDICINE [address] [place], [place] [phone] Cinthya Zarate MD [address] [place], [place] [phone] Acute right-sided low back pain with right-sided [...] Description 07/21/2025 9:00 AM EDT Office Visit [facility] MEDICINE [address] [place] [address] Cinthya Zarate MD [address] [place] [phone] documented as of this encounter Visit Diagnoses Diagnosis Acute right-sided low back pain with right-sided sciatica documented in this encounter Additional Health Concerns Assessment Noted Time PHQ-9 Depression Total Score: 19 024 10:09 AM EDT documented as of this encounter Care Teams Anode Crew Supervisor Relationship Specialty Start Date End Date Cinthya Zarate MD [address] [place] [phone] PCP - General Internal Medicine 06/26/23 documented as of this encounter
--- OUTSIDE RECORDS SUMMARY | 2025-06-24 10:30 | XMS_ITS | Clinical Summary ---
Author Organization [employer] Address 75 [facility] 7t [place] [address] Care Team Providers Care Senior Analysis Specialist Name Role Phone Cinthya Zarate MD [...] 12 HOURS OR DIRECTED 30 patch 1 024 Active gabapentin (Neurontin) 300 MG capsuleIndication s:Polyneuropathy Take 1 capsule (300 mg) by mouth if needed in the morning, at noon, and at bedtime (Neuropathy). 90 capsule 2 024 Active amitriptyline (Elavil) 50 MG tablet TAKE 1 TABLET BY MOUTH EVERY DAY AT BEDTIME FOR 30 DAYS Active magnesium oxide (Mag-Ox) 400 (240 Mg) MG tablet Take 400 mg by mouth at bedtime. 024 Active omeprazole (PriLOSEC) [address] capsule Take 20 mg by mouth Once per day. 024 Active QUEtiapine XR (SEROquel XR) 150 MG 24 hr tablet TAKE 1 TABLET BY MOUTH EVERY NIGHT 3 HOURS BEFORE BEDTIME Active cholecalciferol (D3-1000) 25 MCG (1000 UT) capsuleIndication s:Vitamin D deficiency TAKE 1 CAPSULE BY MOUTH EVERY DAY 90 capsule 1 024 Active olmesartan (BENIcar) 20 MG tabletIndications :Essential hypertension TAKE 1 TABLET BY MOUTH EVERY DAY IN THE MORNING 90 tablet 025 Active ketoconazole (NIZOral) 2 % shampoo APPLY TOPICALLY 2 TIMES A WEEK. 120 mL 025 Active butalbital-acetam inophen-caffeine 50-325-40 MG tablet TOME 1 TABLETA POR V A ORAL CADA 6 HORAS CUANDO SEA NECESARIO FOR 30 DAYS 025 Active metoprolol succinate XL (Toprol-XL) 25 MG 24 hr tablet TAKE 1 TABLET BY MOUTH ONCE PER DAY. DO NOT CRUSH OR CHEW. 90 tablet 1 025 Active Calcium Carb-Cholecalcife rol 600-10 MG-MCG tablet TAKE 1 TABLET BY MOUTH EVERY DAY 90 tablet 1 025 Active rosuvastatin (Crestor) 20 MG tablet TAKE 1 TABLET BY MOUTH EVERY MORNING 90 tablet 025 Active Diclofenac Sodium 1 % gelIndications:Ac noelle right-sided low back pain with right-sided sciatica APPLY 2 GM TOPICALLY IF NEEDED IN THE MORNING AND AT BEDTIME (MUSCLE PAIN). 100 g 3 07/23/2 025 Active metFORMIN (Glucophage) 500 MG tablet TOME 1 TABLETA POR VIA ORAL TODOS LOS BROWN 90 tablet 025 Active Tirzepatide-Weigh t Management (Zepbound) 5 MG/0.5ML solution auto-injectorIndi cations:Essential hypertension,Obes ity (BMI 30-39.9),Obstruct judi sleep apnea syndrome Inject 0.5 mL (5 mg) as directed 1 (one) time per week. Increase dose monthly 2 mL 025 Active Multiple Vitamin (Daily-Radha Multivitamin) tablet TAKE 1 TABLET BY MOUTH EVERY DAY 90 tablet 3 025 Active Multiple Vitamin (Multi-Vitamin) tablet Take 1 tablet by mouth Once per day. 90 tablet 3 024 2024 Discontinued Active Problems Problem Noted Date Diagnosed Date Left trigger finger 04/16/2025 Osteopenia 02/17/2025 Obesity (BMI 30-39.9) 05/25/2024 Health care maintenance [...] right 09/12/2022 Overview (09/12/2022): Referred OT, appt [facility] Ortho 09/11/22. Starting PT Polyneuropathy 09/02/2022 Overview (06/26/2023): Pt reports continued burning on soles Never picked up Gabapentin 300 mg Confirmed with pharmacy and pt will be able to meat pickler gabapentin 300mg TID PRN Assessment & [...] machine until she receives machine back from [employer] F/u 3 months with new PCP or sooner PRN Abnormal gait 03/24/2012 Insomnia 03/24/2012 Resolved Problems Problem Noted Date Diagnosed Date Resolved Date Hypertension 03/24/2012 09/12/2022 Encounters Date Type Department Care Team Description 06/18/2025 Refill [facility] MEDICINE [address] [place] [address] Cinthya Zarate MD 06/03/2025 Telephone [facility] MEDICINE [address] [place] [address] Cinthya Zarate MD Prior Auth Prescription 05/23/2025 Refill [facility] MED[facility]INE [address] [place] [address] Cinthya Zarate MD Essential hypertension; Obesity (BMI 30-39.9); Obstructive sleep apnea syndrome 05/19/2025 Orders Only [facility] MEDICINE [address] [place] [address] Cinthya Zarate MD Essential hypertension (Primary Dx); Obesity (BMI 30-39.9); Obstructive sleep apnea syndrome 05/18/2025 Telephone [facility] MEDICINE [address] [place], [place] [address] Cinthya Zarate MD Med Change Request 05/16/2025 Refill [facility] MED[facility]INE [address] [place] [address] Cinthya Zarate MD 05/09/2025 Refill [facility] [address] [place] [address] Cinthya Zarate MD 05/05/2025 Orders Only GENERIC EXTERNAL DATA DEPARTMENT Provider, Generic External Data 05/02/2025 Refill [facility] [address] [place] [address] Shadia Weir MD 04/19/2025 Refill [facility] [address] [place] [place], [place] [address] Shadia Weir MD Acute right-sided low back pain with right-sided sciatica 04/15/2025 10:00 AM EDT Office Visit [facility] MED[facility]INE [address] [place] [address] Cinthya Zarate MD Trigger finger of left hand, unspecified finger (Primary Dx); Essential hypertension; Obesity (BMI 30-39.9); Prediabetes; Health care maintenance 04/15/2025 Travel 04/14/2025 Telephone [facility] MED[facility]INE 230 [facility], [place] [phone] iCnthya Zarate MD Chart Prep 04/07/2025 Orders Only [facility] [address] [place] [address] Cinthya Zarate MD 04/03/2025 Refill [facility] [address] [facility], [place] [phone] Shadia Weir MD 03/31/2025 Refill [facility] MED[facility] 230 [facility], [place] [phone] Cinthya Zarate MD from Last 3 Months Immunizations Immunization Administration [...] Sign Reading Time Taken Comments Blood Pressure 140/82 04/15/2025 10:57 AM EDT Pulse 66 04/15/2025 10:57 AM EDT Temperature 36.3 C (97.3 F) 04/15/2025 10:57 AM EDT Respiratory Rate 20 04/15/2025 10:57 AM EDT Oxygen Saturation 93% 04/15/2025 10:57 AM EDT Inhaled Oxygen Concentration - - Weight 85.7 kg (189 lb) 04/15/2025 10:57 AM EDT Height 149.9 cm (4' 11 ) 04/15/2025 10:57 AM EDT Body Mass Index 38.17 04/15/2025 10:57 AM EDT Plan of Treatment Upcoming Encounters Date Type Department Care Team (Late st Contact Info) Description 07/21/2025 9:00 AM EDT Office Visit [facility] MED[facility]INE [address] [place] [phone] Cinthya Zarate MD [address] [place], [place] [phone] Health Maintenance Due Date Last Done Comments CT Colonography 1960 Dental Prophylaxis 1960 FIT DNA/Cologuard 1960 FIT 1960 FOBT 1960 Sigmoidoscopy 1960 Dental Oral Exam 11/09/2016 05/08/2016, 01/14/2012 Dental X-Ray: Bitewings 05/09/2017 05/08/2016 Dental X-Ray: Full Mouth 05/09/2019 05/08/2016 COVID-19 Vaccine ( season) 2025 06/22/2024, 08/01/2022, 01/22/2022, Additional history exists Influenza Vaccine (#1) 2025 , 06/24/2023, 08/01/2022, Additional history exists Tobacco Screening 06/22/2025 06/22/2024 Mammogram 08/10/2025 08/10/2024, 06/30, 07/08/2022, Additional history exists SDOH Screening 02/09/2026 02/09/2025 Alcohol/Substance Use Screening 02/16/2026 02/16/2025 Depression Screening 02/16/2026 02/16/2025, 02/17/20 25 Diabetes: Hemoglobin A1C 02/17/2026 025, 06/15/2024, 02/19/2023, Additional history exists DTaP/Tdap/Td Vaccines (3 - Td or Tdap) 07/30/2029 07/30/2019, 07/06/2012 Lipid Panel 02/17/2030 02/17/2025, 05/30, 08/14/2022, Additional history exists Colonoscopy 03/18/2033 03/18/2023 Colorectal Cancer Screening 03/18/2033 RSV Patients and Patients Aged 60 years or older (1 - 1-dose 75+ series) 2035 HPV Vaccines Aged Out 09/08/2019 No longer eligi ble based on patient's age to complete this topic Zoster Vaccines Completed 12/14/2021, 09/14/2021 Hepatitis B Vaccines Completed 04/24/2022, 01/29/2022, 01/01/2022, Additional history exists Pneumococcal Vaccine: 50+ Years Completed 06/24/2023, 12/06/2014 Hepatitis C Screening Completed 06/15/2024, 022 HIB Vaccines Aged Out No longer eligi [...] Procedure Name Priority Date/Time Associated Diagnosis Comments BASIC METABOLIC PANEL Routine 05/05/2025 10:21 AM EDT CHLAMYDIA/TRICHOMONAS/ NEISSERIA GONORRHOEAE, PCR, URINE Routine 04/07/2025 8:17 AM EDT COMPREHENSIVE METABOLIC PANEL Routine 04/07/2025 8:17 AM EDT Transaminitis HEMOGLOBIN A1C Routine 02/17/2025 11:20 AM EDT Prediabetes LIPID PANEL, STANDARD Routine 02/17/2025 11:20 AM EDT Prediabetes BI MAMMOGRAM SCREENING TOMOSYNTHESIS BILATERAL Routine 08/10/2024 [...] Recently Relevant to Health Maintenance Results * (ABNORMAL) Basic Metabolic Panel (05/05/2025 10:21 AM EDT) Sodium 142 135 - 145 mmol/L [facility] Potassium 4.0 3.3 - 5.1 mmol/L [facility] Chloride 106 96 - 108 mmol/L [facility] Carbon Dioxide 31(H) 22 - 29 mmol/L [facility] Anion Gap 9(L) 12 - 20 [facility] Urea Nitrogen (BUN) 11 9 - 16 mg/dL [facility] Creatinine, Serum 0.67 0.5 - 1.4 mg/dL [facility] Estimated Glomerular Filt Rate >60 [facility] Comment:Chronic Kidney Disea se: Estimated GFR < 60 mL/min/1.37p0Ruqiee Kidney Disease: Estimated GFR < 15 mL/min/1.73m2 Glucose 74 60 - 115 mg/dL [facility] Calcium 8.9 8.4 - 10.2 mg/dL [facility] 05/05/2025 10:2 1 AM EDT 05/05/2025 10:21 AM EDT us Generic External Data Provider LAB BLOOD ORDERAB LES Final Result [facility] [address] [place] [phone] * Chlamydia/Trichomonas/Neisseria gonorrhoeae, PCR, Urine (04/07/2025 8:17 AM EDT) CT PCR, Urine NOT DETECTED Not Detect. [facility] Comment:A not detected test result does [...] NG PCR, Urine NOT DETECTED Not Detect. [facility] Comment:A not detected test result does [...] MD LAB URINE ORDERAB LES Final Result [facility] [address] [place] [address] [phone] * (ABNORMAL) Comprehensive Metabolic Panel (04/07/2025 8:17 AM EDT) Sodium 141 135 - 145 mmol/L [facility] Potassium 4.0 3.3 - 5.1 mmol/L [facility] Chloride 105 96 - 108 mmol/L [facility] Carbon Dioxide 29 22 - 29 mmol/L [facility] Anion Gap 11(L) 12 - 20 [facility] Urea Nitrogen (BUN) 13 9 - 16 mg/dL [facility] Creatinine, Serum 0.73 0.5 - 1.4 mg/dL [facility] Estimated Glomerular Filt Rate >60 [facility] Comment:Chronic Kidney Disea se: Estimated GFR < 60 mL/min/1.35v6Aahpox Kidney Disease: Estimated GFR < 15 mL/min/1.73m2 Glucose 108 60 - 115 mg/dL [facility] Calcium 9.2 8.4 - 10.2 mg/dL [facility] Bilirubin, Total 0.4 0.0 - 1.0 mg/dL [facility] Aspartate Amino Transferase 35(H) 5 - 31 U/L [facility] Alanine Aminotransferase 29 0 - 31 U/L [facility] Total Protein 7.5 6.5 - 8.0 g/dL [facility] Albumin Level 4.1 3.5 - 5.0 g/dL [facility] Alkaline Phosphatase 61 39 - 117 U/L [facility] Blood Venous blood specimen / Unknown 04/07/2025 8:17 AM EDT 04/07/2025 12:29 PM EDT us Cinthya Montoya MD LAB BLOOD ORDERAB LES Final Result [facility] [address] [place] [address] [phone] * Hemoglobin A1c (02/17/2025 11:20 AM EDT) Hemoglobin A1c 6.0 <6.0 % [facility] Comment:Hemoglobin A1C Refer ence Range Adults: 4.8 - 6.0 % Non diabetic: < 6.0 % Goal: < 7.0 %Additional Action Suggested: > 8.0 %Note: Hemoglobin A1c results are invalid for patients with abnormal amounts of HbF. Blood transfusions may impact the HbA1c concentration in the patient sample. Estimated Average Glucose 126 mg/dL [facility] Comment:eAG = Estimated ave rage glucose which is %A1C expressed asaverage glucose, using the formula of the C4X-TqurnouPlddbaw Glucose study (ADAG), Diabetes Care, Vol.31,#8,Apr. 2007 Blood Venous blood specimen / Unknown 02/17/2025 11:20 AM EDT 02/17/2025 1:04 PM EDT us Cinthya Montoya MD LAB BLOOD ORDERAB LES Final Result [facility] [address] [place] [phone] * (ABNORMAL) Lipid Panel, Standard (02/17/2025 11:20 AM EDT) Triglycerides 148 <150 mg/dL [facility] Comment:Desirable Triglyceri de: less than 150 mg/dLBorderline High Triglyceride 150-199 mg/dLHigh Triglyceride: 200-499 mg/dLVery High Triglyceride: greater than or equal to 5OO mg/dL Cholesterol 187 <200 mg/dL [facility] Comment:Desirable Cholestero l: less than 200 mg/dLBorderline High Cholesterol: 200-239 mg/dLHigh Cholesterol: greater than 239 mg/dL LDL Cholesterol Calculated 114(H) <100 mg/dL [facility] Comment:Desirable LDL: less than 100 mg/dLNear Optimal/Above Optimal LDL: 110- 129 mg/dLBorderline High LDL: 130-159 mg/dLHigh LDL: 160-189 mg/dLVery High LDL: greater than or equal to 190 mg/dL HDL Cholesterol 44 >40 mg/dL [facility] Comment:Desirable HDL: great er than 40 mg/dL Note: This HDL assay may give artificially low results in patients with liver disease. Blood Venous blood specimen / Unknown 02/17/2025 11:20 AM EDT 02/17/2025 1:04 PM EDT us Cinthya Motnoya MD LAB BLOOD ORDERAB LES Final Result [facility] [address] [place] [address] [phone] * BI Mammogram Screening Tomosynthesis Bilateral (08/10/2024 1:35 PM EST) Anatomical Region Laterality Modality Breast Bilateral Mammography 08/10/2024 1:35 PM EST Narrative 08/18/2024 4:01 PM EST [facility] [address] [place] [address] Mammography Report Signed Patient: Hilaria Michael MR#: [id number] : 1960 Acct:[id number] Age/Sex: 64 / F ADM Date: 08/10/24 Loc: HO.MAMMO Attending Dr: Cinthya Montoya MD Ordering Physician: Cinthya Zarate MD Re sults: 2Benign Findings Date of Service: 08/10/24 Follow Up: 1 Year From Orig inal Mammogram Procedure(s): MM tomosynthesis screening BI Accession Number(s): [id number] cc: Cinthya Zarate MD EXAMINATION: MM SCREENING [...] Nara Todd DO 08/18/2024 03:58 PM EST RP Dictated By: Nara Todd DO Signed By: <Electronically signed by Nara Todd DO in OV> 08/18/24 1558 DD/ 1335 TD/TT: 08/10/24 1355 Tool Specialist: Procedure Note Donotuseinterpreter, Image - [facility]/18/[facility] [address] [place], [place] [address] Mammography Report Signed Patient: Raisa Michael#: [id number] : 1960Acct:[id number] Age/Sex: 64 / FADM Date: 08/10/24 Loc: HOMARICARMENO Attending Dr: Cinthya Montoya MD Ordering Physician: Cinthya Zarate sults: 2Benign Findings Date of Service: 08/10/24Follow Up: 1 Year From Orig inal Mammogram Procedure(s): MM tomosynthesis screening BI Accession Number(s): [id number] cc: Cinthya Zarate MD EXAMINATION: MM SCREENING [...] 08/18/24 1558 DD/ 1335 TD/TT: 08/10/24 1355 Tool Specialist: Cinthya Montoya MD IMG BI PROCEDURES Final Result * Hepatitis C Antibody with Reflex to HCV, RNA, Quantitative, Real-Time PCR (06/15/2024 9:52 AM EDT) Hepatitis C Antibody Nonreactive Nonreactive [facility] Comment:Antibodies to HCV no t detected; does not exclude early acuteHCV infection. Blood Venous blood specimen / Unknown 06/15/2024 9:52 AM EDT 06/15/2024 11:41 AM EDT Cinthya Montoya MD LAB BLOOD ORDERAB LES Final Result [facility] [address] [place] [phone] * (ABNORMAL) Hm Colonoscopy (03/18/2023) Colonoscopy Normal Normal Historical Provider HEALTH MAINTENANCE Edited Result - Final from Last 3 Months or Most Recently Relevant to Health Maintenance Insurance [facility] STANDARD MEDICARE DENTAL-[facility] MEDICAID STAND ADULT Care Teams Senior Analysis Specialist Relationship Specialty Start Date End Date Cinthya Zarate MD [address] [place] [phone] PCP - General Internal Medicine 06/26/23
--- OUTSIDE RECORDS SUMMARY | 2025-06-24 10:30 | XMS_ITS | Encounter Summary ---
Author Organization [employer] Address 75 [facility] 7t [place] [address] Care Team Providers Care Clinical Informatics Director Name Role Phone Cinthya Zarate MD Primary Care Pro vider Reason for Visit * Reason Onset Date Comments Med Refill [facility] 02/16/2025 I informed the p atient that an order for a [facility], was sent to the lab. There is a Family Lock Maintenance Supervisor Medica Form, that needs to be completed. She stated that she would come to the [facility] lab, to have it done today. Encounter Details Date Type Department Care Team (Late st Contact Info) Description 02/16/2025 Refill [facility] MEDICINE [address] [place], [place] [phone] Cinthya Zarate MD [address] [place], [place] [phone] Social History Tobacco Use Types Packs/Day Years [...] stated that she would come to the [facility] lab, to have it done today. * Telephone Encounter - Cinthya Montoya MD - 02/16/2025 5:40 PM EDT No need for refills documented in this encounter Plan of Treatment Upcoming Encounters Date Type Department Care Team (Late st Contact Info) Description 07/21/2025 9:00 AM EDT Office Visit [facility] MEDICINE [address] [place] [phone] Cinthya Zarate MD [address] [place] [phone] documented as of this encounter Visit Diagnoses Not on filedocumented in this encounter Additional Health Concerns Assessment Noted Time PHQ-9 Depression Total Score: 7 02/17/20 25 10:26 AM EDT documented as of this encounter Care Teams Clinical Informatics Director Relationship Specialty Start Date End Date Cinthya Zarate MD [address] [place] [phone] PCP - General Internal Medicine 06/26/23 documented as of this encounter
--- OUTSIDE RECORDS SUMMARY | 2025-06-24 10:30 | XMS_ITS | Encounter Summary ---
Author Organization [employer] Address 75 [facility] 7t [place] [address] Care Team Providers Care Piano And Organ Refinisher Name Role Phone Cinthya Zarate MD Primary Care Pro vider Reason for Visit * Reason Comments Med Refill Encounter Details Date Type Department Care Team ([facility] st Contact Info) Description 05/09/2025 Refill [facility] MEDICINE [address] [place], [place] [phone] Cinthya Zarate MD [address] [employer], [place] [phone] Social History Tobacco Use Types Packs/Day Years [...] Description 07/21/2025 9:00 AM EDT Office Visit [facility] MEDICINE [address] [place] [phone] iCnthya Zarate MD [address] [place] [phone] documented as of this encounter Visit Diagnoses Not on filedocumented in this encounter Additional Health Concerns Assessment Noted Time PHQ-9 Depression Total Score: 7 02/17/20 25 10:26 AM EDT documented as of this encounter Care Teams Piano And Organ Refinisher Relationship Specialty Start Date End Date Cinthya Zarate MD [address] [place] [phone] PCP - General Internal Medicine 06/26/23 documented as of this encounter
--- OUTSIDE RECORDS SUMMARY | 2025-06-24 10:30 | XMS_ITS | Encounter Summary ---
Author Organization [employer] Address [address] [facility] 7t [place] [address] Care Team Providers Care Environmental Issues Instructor Name Role Phone Cinthya Zarate MD Primary Care Pro vider Encounter Details Date Type Department Care Team (Late st Contact Info) Description 01/22/2024 Telephone [facility] MED[facility]INE [address] [place], [place] [phone] Cinthya Zarate MD [address] [place], [place] [phone] Social History Tobacco Use Types Packs/Day Years [...] t he electric, gas, oil or water [employer] threatened to shut off services in your [...] Description 07/21/2025 9:00 AM EDT Office Visit [facility] MED[facility]INE [address] [place] [address] Cintyha Zarate MD [address] [place] [phone] documented as of this encounter Visit Diagnoses Not on filedocumented in this encounter Additional Health Concerns Assessment Noted Time PHQ-9 Depression Total Score: 11 023 10:13 AM EDT documented as of this encounter Care Teams Environmental Issues Instructor Relationship Specialty Start Date End Date Cinthya Zarate MD [address] [place] [phone] PCP - General Internal Medicine 06/26/23 documented as of this encounter
--- OUTSIDE RECORDS SUMMARY | 2025-06-24 10:30 | XMS_ITS | Clinical Summary ---
Author Organization [facility] Address [address] [place] [address] Care Team Providers Care Environmental Laboratory Technician Name Role Phone Rosalinda Levine Primary Care Provider [phone] Allergies No known active allergies Medications lidocaine-menth [...] Health Maintenance Due Date Last Done Comments Cologuard 1960 Colon Cancer Screening 1960 Colonoscopy 1960 FOBT / Fit Test 1960 HIV Screening 1960 Sigmoidoscopy 1960 Osteoporosis Screening 2010 Pneumococcal Vaccine: 50+ Years (2 of 2 - PCV) 12/07/2015 12/06/2014 DTaP,Tdap,and Td Vaccines (2 - Td or Tdap) 07/06/2022 07/06/2012 Alcohol/Substance Use Screening 09/29/2024 Health Care Proxy Review 09/29/2024 COVID-19 Vaccine ( season) 2025 08/29/2021, 12/01/2020, 12/01/2020, Additional history exists Influenza Vaccine (#1) 2025 , 06/14/2020, 06/23/2019, Additional history exists RSV Vaccine (60+ years old and patients) (1 - 1-dose 75+ series) 2035 Zoster Vaccines Completed 12/14/2021, 09/14/2021 Hepatitis B Vaccines Aged Out No long er eligible based on patient's age to complete [place] [id number] [facility] Care Teams Environmental Laboratory Technician Relationship Specialty Start Date End Date Rosalinda Levine [address] [place] [phone] PCP - General 09/26/21
--- OUTSIDE RECORDS SUMMARY | 2025-06-24 10:30 | XMS_ITS | Clinical Summary ---
Author Organization [facility] Address [address] [address] Phone Care Team Providers Care Deckhand Clam Dredge Name Role Phone Rosalinda Levine DM Primary Care Provider [phone] Social History Tobacco Use Types Packs/Day Years [...] 2010 ZOSTER VACCINES (1 of 2) 2010 OSTEOPOROSIS SCREENING INITI AL (ONE-TIME) 2025 INFLUENZA VACCINE (#1) 2025 COVID-19 VACCINE (1 - 2023-2 5 season) 2025 RSV VACCINE (1 - 1-dose 75+ [...] topic Medical Devices Not on file Insurance [facility] [place] [address] [place] [address] [facility] [place] [address] [place] [address] [facility] Care Teams Deckhand Clam Dredge Relationship Specialty Start Date End Date Rosalinda Levine NP PCP - General 09/10/21 Additional Source Comments The information contained in this document represents components of the legal health record. It is not the complete legal health record.[facility]
--- OUTSIDE RECORDS SUMMARY | 2025-06-24 10:30 | XMS_ITS | Encounter Summary ---
Author Organization [employer] Address [address] [facility] [address] [place] [address] Care Team Providers Care Potato Spotter Name Role Phone Cinthya Zarate MD Primary Care Pro vider Reason for Visit * Reason Comments Med Refill Encounter Details Date Type Department Care Team ([facility] st Contact Info) Description 06/18/2025 Refill [facility] [address] [place], [place] [phone] Cinthya Zarate MD [address] [place], [place] [phone] Social History Tobacco Use Types Packs/Day Years [...] Description 07/21/2025 9:00 AM EDT Office Visit [facility] [address] [place] [phone] Cinthya Zarate MD [address] [place] [phone] documented as of this encounter Visit Diagnoses Not on filedocumented in this encounter Additional Health Concerns Assessment Noted Time PHQ-9 Depression Total Score: 7 02/17/20 25 10:26 AM EDT documented as of this encounter Care Teams Potato Spotter Relationship Specialty Start Date End Date Cinthya Zarate MD [address] [place] [phone] PCP - General Internal Medicine 06/26/23 documented as of this encounter
--- OUTSIDE RECORDS SUMMARY | 2025-06-24 10:30 | XMS_ITS | Encounter Summary ---
Author Organization [employer] Address [address] [facility] 7t [place] [address] Care Team Providers Care Log Carrier Operator Name Role Phone Cinthya Zarate MD Primary Care Pro vider Reason for Visit * Reason Comments Med Refill Encounter Details Date Type Department Care Team ([facility] st Contact Info) Description 11/09/2023 Refill [facility] [address] [place], [place] [phone] Cinthya Zarate MD [address] [place] [address] Essential hypertension Social History Tobacco Use Types [...] Office Visit [facility] [address] [place] [phone] Cinthya Zarate MD [address] [place] [phone] documented as of this encounter Visit Diagnoses Diagnosis Essential hypertension Unspecified essential hypertension documented in this encounter Additional Health Concerns Assessment Noted Time PHQ-9 Depression Total Score: 11 023 10:13 AM EDT documented as of this encounter Care Teams Log Carrier Operator Relationship Specialty Start Date End Date Cinthya Zarate MD [address] [place] [phone] PCP - General Internal Medicine 06/26/23 documented as of this encounter
== END 2025-06-24 10:27 | disposition home or self-care (01) ==
LOC: HO.HOS 09:32
DX: M65.342 Trigger finger, left ring finger (principal)
CPT/HCPCS: 20550; 99203

== ENCOUNTER → 2025-06-24 09:31 | Outpatient (BNVA) | payer MEDICARE, MEDICAID, SELFPAY | DX: M65.342 Trigger finger, left ring finger (principal) | CPT/HCPCS: 20550; 99202; J1100; J2003 ==

== ENCOUNTER 2025-07-19 13:25 | Outpatient (AMB) | payer MEDICAID, SELFPAY ==
--- NOTE | 2025-07-19 13:55 | A.OFFVIS_ITS ---
Intake Visit Reasons: 6 month f/u Vibrating Screed Operator Required: Yes Vibrating Screed Operator Services: Vibrating Screed Operator Offered & Declined (family to translate) Accompanied by: Family/Other Allergies No Known Allergies Allergy (Verified 06/24/25 09:44) Medication List - Last Reconciled 07/19/25 by Mary Edwards CNP amitriptyline 50 mg PO BEDTIME aspirin (Adult Low Dose Aspirin) 81 mg PO DAILY icivjavgif-zzordkkgxbjbz-fgyr 50-325-40 mg 1 tab PO Q6H PRN calcium carbonate-vitamin D3 600 mg-5 mcg (200 unit) 1 tab PO DAILY chlorthalidone 50 mg PO DAILY cholecalciferol (vitamin D3) 25 mcg PO DAILY clonazepam 1 mg PO BID gabapentin 300 mg PO BID ketotifen fumarate 0.025%(0.035%) 1 drp ophthalmic (eye) BID PRN lidocaine 4% 1 patch topical DAILY PRN lidocaine 4% 1 appl topical QD-TID PRN loratadine (Claritin) 10 mg PO DAILY magnesium oxide 400 mg PO BEDTIME 30 days metformin 500 mg PO DAILY metoprolol succinate ER 25 mg PO DAILY olmesartan 20 mg PO DAILY omeprazole 20 mg PO DAILY peg 400-propylene glycol (PF) 0.4-0.3 % (Systane (PF)) 1 drp ophthalmic (eye) BID PRN quetiapine ER 150 mg PO BEDTIME rosuvastatin 10 mg PO DAILY sertraline 100 mg PO DAILY tirzepatide (weight loss) (Zepbound) mg subcut HPI Comments Details: She was doing okay. Pressure to right side of head was the same. Taking amitriptyline at bedtime and using butalbital as needed which helped. Sleep was okay with CPAP. Occasional dizziness and feeling off balance if she moved too fast. No falls. Memory was stable. Working with therapist and psychiatrist. She was looking forward to going to [place] for few weeks. Has been getting some right occipital headaches since 2022. When she is nervous, she gets some numbness on left scalp and pressure for 15 minutes. Occasional blurred vision. She suffers from major depression and anxiety, some of which is related to the loss of one child in an accident in 2010 and the substance use problem of her son. Increased anxiety. She does not sleep more than a couple hours at night because of nightmares. She gets headaches frequently, acts confused at times, and feels like there is water pouring down her scalp. Also has pressure in her head and at times feels disoriented. [facility] Medical History (Updated 07/19/25 @ 13:58 by Mary Edwards CNP) Cervicalgia Gastritis GERD (gastroesophageal reflux disease) Arthritis Sleep apnea Essential hypertension Cholecystectomy planned History of mitral valve prolapse Hypertension Mild cognitive disorder Carpal tunnel syndrome Spondylosis PTSD (post-traumatic stress disorder) Sciatica Anxiety Depression Diabetes Surgical History (Updated 06/24/25 @ 09:48 by ALAN Frausto) History of cholecystectomy History of carpal tunnel release of both wrists History of esophagogastroduodenoscopy (EGD) H/O colonoscopy H/O: hysterectomy Family History Father Cardiomyopathy Mother Bone cancer Brother Atherosclerotic heart disease Social History (Updated 06/24/25 @ 09:48 by ALAN Frausto) Household Members: Family Alcohol intake: never Patient Tobacco Use Status: Never used Tobacco Current occupational status: unemployed Current occupation: rt handed Review of Systems Const Denies chills, Denies daytime sleepiness, Reports difficulty sleeping, Denies fatigue, Denies fever(s), Denies frequent falls, Reports headache(s), Denies increased appetite, Denies poor appetite, Denies snoring, Denies weakness, Denies weight gain and Denies weight loss Eyes Denies loss of vision ENT Denies vertigo, Reports dizziness, Reports headache(s) and Denies neck pain Card Denies chest pain at rest, Denies chest pain with activity, Denies syncope, Denies leg edema, Denies palpitations, Denies dyspnea and Denies dyspnea on exertion Resp Denies cough, Denies dyspnea, Denies dyspnea on exertion and Denies snoring GI Denies abdominal pain, Denies constipation, Denies heartburn, Denies diarrhea and Denies nausea Denies urinary frequency, Denies urinary incontinence and Denies urinary urgency Musc Denies abnormal gait, Denies back pain, Denies myalgias, Reports arthralgias, Denies neck pain, Reports numbness and Reports tingling Neuro Denies abnormal gait, Denies vertigo, Reports dizziness, Denies syncope, Denies frequent falls, Reports headache(s), Denies lack of coordination, Denies loss of vision, Reports memory loss, Reports numbness, Denies Other visual disturbances, Denies restless legs, Denies seizure-like activity, Reports tingling, Denies paresthesias, Denies tremor(s) and Denies weakness Psych Reports anxiety, Reports depression, Denies auditory hallucinations, Reports memory loss and Denies visual hallucinations Endo Denies fatigue and Denies palpitations Physical Exam Const Other: General Appearance:? normal, in no acute distress. Heart:? S1, S2 normal, no murmurs. Lungs:? clear anteriorly and posteriorly. Musculoskeletal:? normal. Extremities:? no edema. Psych:? alert, as below. Neuro Other: Abnormal Neurological Findings:?MMSE 25/30 Mental Status: alert, as below. Cranial Nerves: Pupils are equal, round, and reactive to light. External ocular muscles are intact. Visual layton are full, no ptosis. Face is symmetrical, no facial weakness or droop. Facial sensations are normal. Tongue protrudes in midline. Palate elevates symmetrically. Shoulder shrugging is normal Motor Examination: Normal muscle tone, bulk and strength. No atrophy or fasciculations. No drift of the extended upper extremities. DTR 2+. Plantars are flexor. Sensory Exam: Normal light touch, temperature, pinprick, vibration, and joint- position sensations. Rhomberg sign is absent. Coordination: No ataxia. No titubation. Gait Exam: Within normal limits. Cerebellar Signs: Fxflzw-ni-qovs is okay. Extrapyramidal System: No tremor, rigidity with normal facial expressions. No bradykinesia. No bradyphrenia. Normal arm swing and posture. No propulsion or retropulsion. Speech: Normal. MMSE Level of Consciousness: Alert. Orientation: Knows correct year, month, date, day and season. Knows correct city, county and state. Knows correct location and floor. Registration: Able to register 3 objects. Attention: Serial 7's performed accurately to 93 Recall: Able to recall 2 out of 3 objects. Language: Normal spontaneous speech, fluency, repetition, naming, comprehension, reading, and writing. Total Score: 25/30. Results Reviewed Results Reviewed: 03/12/24 MRI Brain WO: 1. Unchanged L frontal deep white matter and posterior le ft lentiform nucleus T2 hyperintense lesions. Assessment & Plan Assessment & Plan (1) Tension headache: Code(s): G44.209 - Tension-type headache, unspecified, not intractable Category: Medical Plan: Continue amitriptyline 50mg 1 tablet at bedtime. Continue dyvhjqsssl-WIXV-tgxq 50-325-40mg 1 tablet as needed q6h for headache #30 for 30 days. (2) MCI (mild cognitive impairment): Code(s): G31.84 - Mild cognitive impairment of uncertain or unknown etiology Category: Medical Plan: Stay physically and socially active. Plan . Coding Level of Care Code Est Pt Level 4 (63440) Diagnoses Tension headache G44.209 MCI (mild cognitive impairment) G31.84
== END 2025-07-19 14:09 | disposition home or self-care (01) ==
LOC: HO.HSM 13:26
PROVIDERS: PCP Student in an Organized Health Care Education/Training Program; Referring Provider Internal Medicine; Visit Provider Registered Nurse
DX: G44.209 Tension-type headache, unspecified, not intractable (principal); G31.84 Mild cognitive impairment of uncertain or unknown etiology
CPT/HCPCS: 99214

== ENCOUNTER → 2025-07-19 13:25 | Outpatient (BNVA) | payer MEDICAID, SELFPAY | PROVIDERS: PCP Student in an Organized Health Care Education/Training Program; Referring Provider Internal Medicine; Visit Provider Registered Nurse | DX: G44.209 Tension-type headache, unspecified, not intractable (principal); G31.84 Mild cognitive impairment of uncertain or unknown etiology | CPT/HCPCS: 99212 ==

== ENCOUNTER 2025-09-15 10:17 | Outpatient (REF) | payer MEDICAID, SELFPAY ==
[2025-09-15 14:41] LABS: Hematocrit 42.1 % (37.0-47.0); Hemoglobin 13.4 g/dl (12.0-16.0); Imm Gran Abs Auto 0.02 X10*3/uL (0.00-0.03); Imm Gran Pct Auto 0.3 % (0.0-0.4); Lymphocytes Absolute Auto 1.6 X10*3/uL (1.2-4.9); MANUAL DIFF FLAG SCAN; Mean Corpuscular HGB Conc 31.8 g/dl (31.0-35.0); Mean Corpuscular Hemoglobin 30.0 pg (27.0-33.0); Mean Corpuscular Volume 94.2 fL (80.0-98.0); NRBC Abs Auto 0.000 X10*3/uL (0.0-0.012); NRBC Pct Auto 0.0 /100WBC (0.0-0.2); PLT CLUMP 1; Red Blood Count 4.47 X10*6/uL (4.20-5.50); SCAN SMEAR FLAG 1
[2025-09-15 15:12] LABS: Microalbum/Creatinine Ratio Ur 5.2 ug/mg cr (<30)
[2025-09-15 15:15] LABS: White Blood Count 7.4 X10*3/uL (4.8-10.8)
[2025-09-15 15:16] LABS: Platelet Count 150 X10*3/uL (160-400)
[2025-09-15 15:17] LABS: Folate 13.5 ng/mL (> or = 4.0); Vitamin B12 535 pg/mL (200-900)
[2025-09-15 15:34] LABS: Alanine Aminotransferase 20 U/L (0-31); Albumin Level 4.1 g/dL (3.5-5.0); Alkaline Phosphatase 75 U/L (39-117); Anion Gap 9 (12-20); Aspartate Amino Transferase 33 U/L (5-31); Blood Urea Nitrogen 16 mg/dL (9-16); Calcium 9.0 mg/dL (8.4-10.2); Carbon Dioxide 30 mmol/L (22-29); Chloride 105 mmol/L (96-108); Cholesterol 155 mg/dL (<200); Estimated Glomerular Filt Rate > 60; HDL Cholesterol 44 mg/dL (>40); Potassium 4.0 mmol/L (3.3-5.1); Sodium 140 mmol/L (135-145); Total Protein 7.4 g/dL (6.5-8.0); Triglycerides 73 mg/dL (<150)
[2025-09-15 15:50] LABS: CT PCR Urine NOT DETECTED (Not Detect.); NG PCR Urine NOT DETECTED (Not Detect.)
[2025-09-16 08:26] LABS: HBsAGNum1 0.34 S/CO (0.00-0.99); HIV Num 1 0.12 S/CO (0.00-0.99); Hepatitis B Surface Antigen Negative (Negative); ~HepC Num1 0.20 S/CO (0.00-0.79); ~Hepatitis C Antibody Nonreactive (Nonreactive)
[2025-09-16 08:37] LABS: Syphilis Screen Nonreactive (Nonreactive)
== END 2025-09-15 10:18 ==
LOC: HO.HHCL 10:17
PROVIDERS: PCP Student in an Organized Health Care Education/Training Program; Visit Provider Student in an Organized Health Care Education/Training Program
DX: Z00.00 Encounter for general adult medical examination without abnormal findings (principal); Z11.4 Encounter for screening for human immunodeficiency virus [HIV]; Z11.59 Encounter for screening for other viral diseases; Z20.2 Contact with and (suspected) exposure to infections with a predominantly sexual mode of transmission; Z68.38 Body mass index [BMI] 38.0-38.9, adult; A64 Unspecified sexually transmitted disease
CPT/HCPCS: 36415; 80053; 80061; 82043; 82306; 82570; 82607; 82746; 83036; 84443; 85025; 86780; 86803; 87340; 87389; 87491; 87591